=== PATIENT | female | born 1945 | race Caucasian/White ===

== ENCOUNTER 2016-07-10 14:41 | Emergency (ER) | payer OTHER ==
[2016-07-10 14:58] VITALS: BMI 26.6
--- NOTE | 2016-07-10 15:13 | PDOC ---
History of Present Illness - History of Present Illness Initial Comments: 07/10/16 18:05 Patient is a 70 year old female with significant medical hx of questionable lupus, major depressive disorder, HLD, thyroid disease, bilateral carpal tunnel syndrome, and recent diagnosis of pancreatitis (04/2016, [facility]) who is presenting to the ED with persistent abdominal pain. The patient states shes been in and out of [facility] for the past few months for abdominal pain. Recently, she has had increasing pain to the LLQ and generalized weakness. The patient had one episode of brown diarrhea this morning that was not black or bloody. The patient also reports nausea and vomiting two days ago but no vomiting since then. The patient is unsure if this is related to her pancreatitis. Denies any fevers, chills, chest pain, or shortness of breath, dysuria, melena/ bpr. Surgical Hx: cholecystectomy <Lavonne Mcguire - Last Filed: 07/10/16 18:05> <Kimberli Crawford - Last Filed: 07/10/16 23:06> <Raymundo Rodarte - Last Filed: 07/14/16 02:55> - General Chief Complaint: Weakness Stated Complaint: WEAKNESS Time Seen by Provider: 07/10/16 15:01 Past History <Lavonne Mcguire - Last Filed: 07/10/16 18:05> <Kimberli Crawford - Last Filed: 07/10/16 23:06> - Past Medical History Hypercholesterolemia: Yes (ELEVATED TRIGLYCERIDES) Thyroid Disease: Yes (HYPO) - Surgical History Abdominal Surgery: Yes Cholecystectomy: Yes - Immunization History Td Vaccination: Yes Immunization Up to Date: Yes - Psycho/Social/Smoking Cessation Hx Anxiety: Yes Suicidal Ideation: No Smoking Status: No Smoking History: Never smoked Years of Tobacco Use: 0 Have you smoked in the past 12 months: No Number of Cigarettes Smoked Daily: 0 Cigars Per Day: 0 Information on smoking cessation initiated: No Hx Alcohol Use: No Drug/Substance Use Hx: No <Raymundo Rodarte - Last Filed: 07/14/16 02:55> - Past Medical History Allergies/Adverse Reactions: Allergies Allergy/AdvReac Type Severity Reaction Status Date / Time cat dander Allergy Verified 07/10/16 14:56 lactose Allergy Verified 07/10/16 14:56 No Known Drug Allergies Allergy Verified 07/10/16 14:56 Home Medications: Ambulatory Orders Calcium Carbonate/Vitamin D3 [Oyster Shell 500-Vit D3 200 Tb] 1 each PO TID Clonazepam [KlonoPIN] 0.5 mg PO TID 07/10/16 Cyclosporine [Restasis] 1 each OP BID 07/10/16 Duloxetine HCl [Cymbalta -] 60 mg PO DAILY 07/10/16 Ferrous Gluconate [Ferate] 65 mg PO DAILY 07/10/16 Fluticasone Prop 0.05% Nasal [Flonase -] 1 spray NS BID 07/10/16 Gemfibrozil [Lopid -] 600 mg PO BID 07/10/16 Hydrocodone/Acetaminophen [[place] 10-325 Tablet] 1 each PO Q4H PRN 07/10/16 Hydroxychloroquine So4 [Plaquenil -] 200 mg PO BID 07/10/16 Lactase [Dairy Relief] 3,000 unit PO TID 07/10/16 Levothyroxine [Synthroid -] 88 mcg PO DAILY 07/10/16 Linagliptin [Tradjenta] 5 mg PO DAILY 07/10/16 Magnesium Oxide [Mag-Ox -] 400 mg PO BID 07/10/16 Metformin HCl [Metformin HCl ER] 1,000 mg PO BID 07/10/16 Metoprolol Tartrate [Lopressor -] 25 mg PO BID 07/10/16 Multivitamin [Poly-Vitamin] 1 each PO DAILY 07/10/16 Non-Formulary 20 mg PO TID 07/10/16 Prednisone [Deltasone -] 5 mg PO DAILY 07/10/16 Ranitidine [Zantac -] 150 mg PO BID 07/10/16 Saliva Substitute Combo No.9 [Biotene] 1 applic PO DAILY 07/10/16 Sertraline HCl [Zoloft] 75 mg PO DAILY 07/10/16 Sodium Fluoride [Prevident (Nf)] 60 gm DT BID 07/10/16 Tobramycin/Dexamethasone [Tobradex Eye Drops] 1 drop OU TID 07/10/16 Zolpidem Tartrate [Ambien] 10 mg PO HS 07/10/16 Review of Systems - Review of Systems Comments:: 07/10/16 18:05 CONSTITUTIONAL: Reported: Generalized Weakness No reported: Fever, Chills, Diaphoresis, Malaise, Loss of Appetite HEENT: No reported: Rhinorrhea, Nasal Congestion, Throat Pain, Throat Swelling, Difficulty Swallowing, Mouth Swelling, Ear Pain, Eye Pain, Visual Changes CARDIOVASCULAR: No reported: Chest Pain, Syncope, Palpitations, Irregular Heart Rate, Lightheadedness, Peripheral Edema RESPIRATORY: No reported: Cough, Shortness of Breath, SOB with Exertion, Orthopnea, Wheezing , Stridor, Hemoptysis GASTROINTESTINAL: Reported: Abdominal pain, Nausea, Vomiting, Diarrhea No reported: Abdominal Distension, Constipation, Melena, Hematochezia GENITOURINARY: No reported: Dysuria, Frequency, Urgency, Hesitancy, Flank Pain, Genital Pain MUSCULOSKELETAL: No reported: Myalgia, Arthralgia, Joint Swelling, Back pain, Neck Pain SKIN: No reported: Rash, Itching, Pallor HEMEATOLOGIC/IMMUNOLOGIC: No reported: Easy Bleeding, Easy Bruising, Lymphadenopathy, Frequent infections ENDOCRINE: No reported: Unexplained Weight Gain, Unexplained Weight Loss, Heat Intolerance , Cold Intolerance NEUROLOGIC: No reported: Headache, Focal Weakness, Paresthesias, Vertigo, Lightheadedness, Unsteady Gait, Seizure, Mental Status Changes, Incontinence PSYCHIATRIC: No reported: Anxiety, Depression <Maynor,Lavonne - Last Filed: 07/10/16 18:05> *Physical Exam - Vital Signs Last Vital Signs Temp Pulse Resp BP Pulse Ox 97.9 F 94 H 19 125/78 100 07/10/16 14:56 07/10/16 14:56 07/10/16 14:56 07/10/16 14:56 07/10/16 14:56 - Physical Exam Comments: 07/10/16 18:06 GENERAL: The patient is awake, alert, and fully oriented, Nontoxic - in no acute distress. HEAD: Normocephalic, atraumatic. EYES: extraocular movements intact, sclera anicteric, conjunctiva clear. ENT: Normal voice, Moist mucous membranes. NECK: Normal range of motion, supple LUNGS: Breath sounds equal, clear to auscultation bilaterally. No wheezes, no rhonchi, no rales. HEART: Regular rate and rhythm, normal S1 and S2 without murmur, rub or gallop. ABDOMEN: Soft, mild LLQ tenderness, normoactive bowel sounds. No guarding, no rebound. No CVA tenderness EXTREMITIES: Normal range of motion, no edema. No clubbing or cyanosis. No cords, erythema, or tenderness. NEUROLOGICAL: No facial assymetry, Normal speech, PSYCH: Normal mood, normal affect. SKIN: Warm, Dry, normal turgor. <Maynor,Lavonne - Last Filed: 07/10/16 18:05> - Vital Signs Last Vital Signs Temp Pulse Resp BP Pulse Ox 99.0 F 88 20 126/71 96 07/10/16 20:17 07/10/16 20:17 07/10/16 20:17 07/10/16 20:17 07/10/16 20:17 <Kimberli Crawford - Last Filed: 07/10/16 23:06> - Vital Signs Last Vital Signs Temp Pulse Resp BP Pulse Ox 97.9 F 94 H 19 125/78 100 07/10/16 14:56 07/10/16 14:56 07/10/16 14:56 07/10/16 14:56 07/10/16 14:56 <Raymundo Rodarte - Last Filed: 07/14/16 02:55> Heart Score/ECG Review - ECG Impressions Comment:: 07/10/16 16:24 Twelve-lead EKG was performed and reviewed by me. There is normal sinus rhythm with a normal rate. rate of 75 The axis is normal. The intervals are normal. There is normal R wave progression There are no ST or T wave abnormalities. Impression: Normal twelve-lead EKG <Raymundo Rodarte - Last Filed: 07/14/16 02:55> ED Treatment Course - LABORATORY CBC & Chemistry Diagram: 07/10/16 15:15 07/10/16 15:15 - ADDITIONAL ORDERS Additional order review: Laboratory Results 07/10/16 15:15 Sodium 134 L Potassium 3.9 Chloride 99 Carbon Dioxide 23 Anion Gap 12 BUN 13 Creatinine 0.6 Creat Clearance w eGFR > 60 Random Glucose 159 H Calcium 9.1 Magnesium 1.6 L Total Bilirubin 0.3 AST 10 L ALT 8 L Alkaline Phosphatase 106 Creatine Kinase 19 L Troponin I < 0.02 Total Protein 6.3 L Albumin 2.5 L Lipase 261 07/10/16 15:15 RBC 3.28 L MCV 89.0 MCHC 33.1 RDW 13.9 MPV 7.8 Neutrophils % 89.0 H Lymphocytes % 4.0 L Monocytes % 6.4 Eosinophils % 0.2 Basophils % 0.4 - Medications Given in the ED: ED Medications Discontinued Medications Generic Name Dose Route Start Last Admin Trade Name Freq PRN Reason Stop Dose Admin Sodium Chloride 1,000 mls @ 1,000 mls/hr 07/10/16 16:00 07/10/16 16:06 Normal Saline - IV 07/10/16 16:59 1,000 mls/hr .Q1H ONE Administration Morphine Sulfate 2 mg 07/10/16 16:00 07/10/16 16:06 Morphine Injection - IVPUSH 07/10/16 16:01 2 mg ONCE ONE Administration Morphine Sulfate 4 mg 07/10/16 17:35 07/10/16 17:39 Morphine Injection - IVPUSH 07/10/16 17:36 4 mg ONCE ONE Administration <Lavonne Mcguire - Last Filed: 07/10/16 18:05> - LABORATORY CBC & Chemistry Diagram: 07/10/16 15:15 07/10/16 15:15 - ADDITIONAL ORDERS Additional order review: Laboratory Results 07/10/16 07/10/16 07/10/16 15:22 15:15 15:15 Sodium 134 L Potassium 3.9 Chloride 99 Carbon Dioxide 23 Anion Gap 12 BUN 13 Creatinine 0.6 Creat Clearance w eGFR > 60 Random Glucose 159 H Calcium 9.1 Magnesium 1.6 L Total Bilirubin 0.3 AST 10 L ALT 8 L Alkaline Phosphatase 106 Creatine Kinase 19 L Troponin I < 0.02 Total Protein 6.3 L Albumin 2.5 L Lipase 261 TSH 1.04 Urine Color Straw Urine Appearance Clear Urine pH 7.0 Ur Specific [place] 1.006 Urine Protein Negative Urine Glucose (UA) Negative Urine Ketones Negative Urine Blood Negative Urine Nitrite Negative Urine Bilirubin Negative Urine Urobilinogen Negative Ur Leukocyte Esterase Trace H 07/10/16 15:15 RBC 3.28 L MCV 89.0 MCHC 33.1 RDW 13.9 MPV 7.8 Neutrophils % 89.0 H Lymphocytes % 4.0 L Monocytes % 6.4 Eosinophils % 0.2 Basophils % 0.4 - Medications Given in the ED: ED Medications Discontinued Medications Generic Name Dose Route Start Last Admin Trade Name Freq PRN Reason Stop Dose Admin Acetaminophen 1,000 mg 07/10/16 19:43 07/10/16 20:16 Ofirmev Injection - IVPB 07/10/16 19:44 1,000 mg ONCE ONE Administration Sodium Chloride 1,000 mls @ 1,000 mls/hr 07/10/16 16:00 07/10/16 16:06 Normal Saline - IV 07/10/16 16:59 1,000 mls/hr .Q1H ONE Administration Morphine Sulfate 2 mg 07/10/16 16:00 07/10/16 16:06 Morphine Injection - IVPUSH 07/10/16 16:01 2 mg ONCE ONE Administration Morphine Sulfate 4 mg 07/10/16 17:35 07/10/16 17:39 Morphine Injection - IVPUSH 07/10/16 17:36 4 mg ONCE ONE Administration <Kimberli Crawford - Last Filed: 07/10/16 23:06> - LABORATORY CBC & Chemistry Diagram: 07/10/16 15:15 07/10/16 15:15 <Raymundo Rodarte - Last Filed: 07/14/16 02:55> Medical Decision Making - Medical Decision Making 07/10/16 22:28 I spoke to hospitalist, who is willing to accept the patient so long as surgery service agrees to the admission. Our surgeon, Dr. Ochoa, is unwilling to accept the patient as she may require reection of pancreas, secondary to possible nectrotizing pancreatitis, as per air bubbles and possible abscess around the tail of the pancreas. I then spoke to Marii Craig, who is affiliated with [facility] He states that he has been admitting the patient to the hospitalists at [facility], but that [facility] has been unable to teat patient effectively over the past couple of times she had been admitted there. SHe had been admitted over a month. SHe has severe pancreatitis with pseudocysts. Dr. Jerry is recommending tertiary care center for eval and treatment of patient. I spoke to Dr. Borden at [facility], who accepts the patient. <Kimberli Crawford - Last Filed: 07/10/16 23:06> - Medical Decision Making 07/10/16 16:01 70y F hx of psych issues, pancreatitis approximately 2 months ago at [facility], ? lupus, presents with generalized weakness and LLQ pain for a few days with 1 episode of brown diarrhea this am w/o blood/melena. on exam pt had mild Llq tenderness, otherwise unreamrakble exam differential includes ?diverticulitis, uti will obtain blood work, ua ct abdomen will reassess A portion of this note was documented by scribe services under my direction. I have reviewed the details of the note, within reason, and agree with the documentation with the following case summary and management plan written by me 07/10/16 19:01 case signed out to dr. crawford to fu with CT and reeval/disposition the patient <Raymundo Rodarte - Last Filed: 07/14/16 02:55> *DC/Admit/Observation/Transfer - Attestations Scribe Attestion: 07/10/16 18:06 Documentation prepared by Lavonne Mcguire, acting as rn medical surgical for Raymundo Rodarte MD. <Lavonne Mcguire - Last Filed: 07/10/16 18:05> - Discharge Dispostion Admit: No - Transfer to Acute Care Facility Receiving Facility: [facility]. <Kimberli Crawford - Last Filed: 07/10/16 23:06> <Raymundo Rodarte - Last Filed: 07/14/16 02:55> Diagnosis at time of Disposition: Pancreatitis, Pneumobilia - Discharge Dispostion Disposition: TRANSFER ACUTE CARE/OTHER HOSP Condition at time of disposition: Guarded - Referrals Referrals: Allyson Jerry MD [Primary Care Provider] -
[2016-07-10 15:38] LABS: BASOPHIL 0.4 % (0-2.0); EOSINOPHIL 0.2 % (0-4.5); MCH 29.5 pg (25.7-33.7); MCHC 33.1 g/dl (32.0-36.0); MEAN PLT VOLUME 7.8 fl (7.5-11.1); PLATELET COUNT 292 K/MM3 (134-434); RDW 13.9 % (11.6-15.6); WHITE BLOOD COUNT 10.3 K/mm3 (4.0-10.0)
[2016-07-10] MEDS ORDERED: morphine CARPU-JECT 2 MG/1 ML DISP.SYRIN IVPUSH ONE (16:00)
[2016-07-10] MEDS ORDERED: SODIUM CHLORIDE 1,000 ML IV ONE (16:00)
[2016-07-10] MEDS ORDERED: morphine CARPU-JECT 2 MG/1 ML DISP.SYRIN ONE (16:05)
[2016-07-10 16:08] LABS: ALBUMIN 2.5 g/dl (3.4-5.0); ANION GAP 12 (8-16); BILIRUBIN,TOTAL 0.3 mg/dL (0.2-1.0); CALCIUM 9.1 mg/dL (8.5-10.1); CO2 23 mmol/L (21-32); COCKROFT - GAULT 101.3795; CREATININE 0.6 mg/dL (0.55-1.02); GLUCOSE,RANDOM 159 mg/dL (74-106); MAGNESIUM 1.6 mg/dL (1.8-2.4); SGOT/AST 10 U/L (15-37); SGPT/ALT 8 U/L (12-78); TOT PROT 6.3 g/dl (6.4-8.2)
[2016-07-10 16:11] LABS: ALK PHOS 106 U/L (45-117); TROPONIN I < 0.02 ng/ml (0.00-0.05)
[2016-07-10] MEDS ORDERED: morphine CARPU-JECT 4 MG/1 ML DISP.SYRIN IVPUSH ONE (17:35)
[2016-07-10] MEDS ORDERED: morphine CARPU-JECT 4 MG/1 ML DISP.SYRIN ONE (17:36)
[2016-07-10 19:07] LABS: URINE APPEARANCE CLEAR; URINE BILIRUBIN NEGATIVE (NEGATIVE); URINE BLOOD NEGATIVE (NEGATIVE); URINE COLOR STRAW; URINE GLUCOSE (UA) NEGATIVE (NEGATIVE); URINE KETONE NEGATIVE (NEGATIVE); URINE NITRITE NEGATIVE (NEGATIVE); URINE PROTEIN NEGATIVE (NEGATIVE); URINE UROBILINOGEN NEGATIVE E.U./dl (0.2-1.0)
[2016-07-10 19:40] LABS: URINE LEUK ESTERASE TRACE (NEGATIVE)
[2016-07-10] MEDS ORDERED: ACETAMINOPHEN 1000 MG/100 ML VIAL (NON FORMULARY) IVPB ONE (19:43)
[2016-07-10] MEDS ORDERED: ACETAMINOPHEN INJECTION 100 ML IVPB ONE (20:09)
[2016-07-10 21:35] LABS: URINE WBC 5 /hpf (3-5)
[2016-07-10] MEDS ORDERED: cefOXitin SODIUM 2 GM VIAL (RESTRICTED TO ID) IVPB ONE (22:26)
--- NOTE | 2016-07-10 22:28 | HP ---
CHIEF COMPLAINT: PCP: HISTORY OF PRESENT ILLNESS: ER course was notable for: (1) (2) (3) Recent Travel: PAST MEDICAL HISTORY: PAST SURGICAL HISTORY: Social History: Smoking: Alcohol: Drugs: Family History: Allergies cat dander Allergy (Verified 07/10/16 14:56) lactose Allergy (Verified 07/10/16 14:56) No Known Drug Allergies Allergy (Verified 07/10/16 14:56) HOME MEDICATIONS: Home Medications Medication Instructions Recorded Calcium Carbonate/Vitamin D3 1 each PO TID 07/10/16 [Oyster Shell 500-Vit D3 200 Tb] Clonazepam [KlonoPIN] 0.5 mg PO TID 07/10/16 Cyclosporine [Restasis] 1 each OP BID 07/10/16 Duloxetine HCl [Cymbalta -] 60 mg PO DAILY 07/10/16 Ferrous Gluconate [Ferate] 65 mg PO DAILY 07/10/16 Fluticasone Prop 0.05% Nasal 1 spray NS BID 07/10/16 [Flonase -] Gemfibrozil [Lopid -] 600 mg PO BID 07/10/16 Hydrocodone/Acetaminophen [[place] 1 each PO Q4H PRN 07/10/16 10-325 Tablet] Hydroxychloroquine So4 [Plaquenil 200 mg PO BID 07/10/16 -] Lactase [Dairy Relief] 3,000 unit PO TID 07/10/16 Levothyroxine [Synthroid -] 88 mcg PO DAILY 07/10/16 Linagliptin [Tradjenta] 5 mg PO DAILY 07/10/16 Magnesium Oxide [Mag-Ox -] 400 mg PO BID 07/10/16 Metformin HCl [Metformin HCl ER] 1,000 mg PO BID 07/10/16 Metoprolol Tartrate [Lopressor -] 25 mg PO BID 07/10/16 Multivitamin [Poly-Vitamin] 1 each PO DAILY 07/10/16 Non-Formulary 20 mg PO TID 07/10/16 Prednisone [Deltasone -] 5 mg PO DAILY 07/10/16 Ranitidine [Zantac -] 150 mg PO BID 07/10/16 Saliva Substitute Combo No.9 1 applic PO DAILY 07/10/16 [Biotene] Sertraline HCl [Zoloft] 75 mg PO DAILY 07/10/16 Sodium Fluoride [Prevident (Nf)] 60 gm DT BID 07/10/16 Tobramycin/Dexamethasone [Tobradex 1 drop OU TID 07/10/16 Eye Drops] Zolpidem Tartrate [Ambien] 10 mg PO HS 07/10/16 REVIEW OF SYSTEMS CONSTITUTIONAL: Absent: fever, chills, diaphoresis, generalized weakness, malaise, loss of appetite, weight change HEENT: Absent: rhinorrhea, nasal congestion, throat pain, throat swelling, difficulty swallowing, mouth swelling, ear pain, eye pain, visual changes CARDIOVASCULAR: Absent: chest pain, syncope, palpitations, irregular heart rate, lightheadedness , peripheral edema RESPIRATORY: Absent: cough, shortness of breath, dyspnea with exertion, orthopnea, wheezing, stridor, hemoptysis GASTROINTESTINAL: Absent: abdominal pain, abdominal distension, nausea, vomiting, diarrhea, constipation, melena, hematochezia GENITOURINARY: Absent: dysuria, frequency, urgency, hesitancy, hematuria, flank pain, genital pain MUSCULOSKELETAL: Absent: myalgia, arthralgia, joint swelling, back pain, neck pain SKIN: Absent: rash, itching, pallor HEMATOLOGIC/IMMUNOLOGIC: Absent: easy bleeding, easy bruising, lymphadenopathy, frequent infections ENDOCRINE: Absent: unexplained weight gain, unexplained weight loss, heat intolerance, cold intolerance NEUROLOGIC: Absent: headache, focal weakness or paresthesias, dizziness, unsteady gait, seizure, mental status changes, bladder or bowel incontinence PSYCHIATRIC: Absent: anxiety, depression, suicidal or homicidal ideation, hallucinations. PHYSICAL EXAMINATION Vital Signs - 24 hr 07/10/16 07/10/16 07/10/16 14:56 18:30 20:17 Temperature 97.9 F 99.0 F Pulse Rate 94 H Pulse Rate [ 80 88 Apical] Respiratory 19 19 20 Rate Blood Pressure 125/78 Blood Pressure 141/65 126/71 [Right Arm] O2 Sat by Pulse 100 98 96 Oximetry (%) GENERAL: Awake, alert, and fully oriented, in no acute distress. HEAD: Normal with no signs of trauma. EYES: Pupils equal, round and reactive to light, extraocular movements intact, sclera anicteric, conjunctiva clear. No lid lag. EARS, NOSE, THROAT: Ears normal, nares patent, oropharynx clear without exudates. Moist mucous membranes. NECK: Normal range of motion, supple without lymphadenopathy, JVD, or masses. LUNGS: Breath sounds equal, clear to auscultation bilaterally. No wheezes, and no crackles. No accessory muscle use. HEART: Regular rate and rhythm, normal S1 and S2 without murmur, rub or gallop. ABDOMEN: Soft, nontender, not distended, normoactive bowel sounds, no guarding, no rebound, no masses. No hepatomegaly or splenomegaly. MUSCULOSKELETAL: Normal range of motion at all joints. No bony deformities or tenderness. No CVA tenderness. UPPER EXTREMITIES: 2+ pulses, warm, well-perfused. No cyanosis. No clubbing. No peripheral edema. LOWER EXTREMITIES: 2+ pulses, warm, well-perfused. No calf tenderness. No peripheral edema. NEUROLOGICAL: Cranial nerves II-XII intact. Normal speech. Normal gait. PSYCHIATRIC: Cooperative. Good eye contact. Appropriate mood and affect. SKIN: Warm, dry, normal turgor, no rashes or lesions noted, normal capillary refill. Laboratory Results - last 24 hr 07/10/16 07/10/16 07/10/16 15:15 15:15 15:15 WBC 10.3 H RBC 3.28 L Hgb 9.7 L Hct 29.2 L MCV 89.0 MCHC 33.1 RDW 13.9 Plt Count 292 MPV 7.8 Neutrophils % 89.0 H Lymphocytes % 4.0 L Monocytes % 6.4 Eosinophils % 0.2 Basophils % 0.4 Sodium 134 L Potassium 3.9 Chloride 99 Carbon Dioxide 23 Anion Gap 12 BUN 13 Creatinine 0.6 Creat Clearance w eGFR > 60 Random Glucose 159 H Calcium 9.1 Magnesium 1.6 L Total Bilirubin 0.3 AST 10 L ALT 8 L Alkaline Phosphatase 106 Creatine Kinase 19 L Troponin I < 0.02 Total Protein 6.3 L Albumin 2.5 L Lipase 261 TSH Urine Color Straw Urine Appearance Clear Urine pH 7.0 Ur Specific [place] 1.006 Urine Protein Negative Urine Glucose (UA) Negative Urine Ketones Negative Urine Blood Negative Urine Nitrite Negative Urine Bilirubin Negative Urine Urobilinogen Negative Ur Leukocyte Esterase Trace H 07/10/16 15:22 WBC RBC Hgb Hct MCV MCHC RDW Plt Count MPV Neutrophils % Lymphocytes % Monocytes % Eosinophils % Basophils % Sodium Potassium Chloride Carbon Dioxide Anion Gap BUN Creatinine Creat Clearance w eGFR Random Glucose Calcium Magnesium Total Bilirubin AST ALT Alkaline Phosphatase Creatine Kinase Troponin I Total Protein Albumin Lipase TSH 1.04 Urine Color Urine Appearance Urine pH Ur Specific [place] Urine Protein Urine Glucose (UA) Urine Ketones Urine Blood Urine Nitrite Urine Bilirubin Urine Urobilinogen Ur Leukocyte Esterase ASSESSMENT/PLAN:
[2016-07-10] MEDS ORDERED: CEFOXITIN SODIUM 2 GM in DEXTROSE 5%-WATER - 100 ML IVPB ONE (23:00)
[2016-07-10 23:07] VITALS: BP 141/59; PULSE 82; TEMP 98
--- NOTE | 2016-07-11 11:18 | EKG ---
Test Reason : Blood Pressure : / mmHG Vent. Rate : 075 BPM Atrial Rate : 075 BPM P-R Int : 148 ms QRS Dur : 090 ms QT Int : 404 ms P-R-T Axes : 007 011 052 degrees QTc Int : 451 ms NORMAL SINUS RHYTHM NORMAL ECG NO PREVIOUS ECGS AVAILABLE Confirmed by WALDEMAR MADRIGAL MD ([id number]) on 07/11/2016 11:18:14 AM Referred By: Confirmed By:WALDEMAR MADRIGAL MD
== END 2016-07-10 23:03 | disposition short-term general hospital (02) ==
LOC: JER 14:41 → UNDOADMIN 22:07 → JERBED 22:07 → JER 23:03
PROC: 3E033NZ Introduction of Analgesics, Hypnotics, Sedatives into Peripheral Vein, Percutaneous Approach (ICD-10-PCS; principal; 2016-07-10)
PROC: 3E03329 Introduction of Other Anti-infective into Peripheral Vein, Percutaneous Approach (ICD-10-PCS; 2016-07-10)
PROC: 3E0337Z Introduction of Electrolytic and Water Balance Substance into Peripheral Vein, Percutaneous Approach (ICD-10-PCS; 2016-07-10)
DX: K85.90 Acute pancreatitis without necrosis or infection, unspecified (principal); J17 Pneumonia in diseases classified elsewhere; E78.5 Hyperlipidemia, unspecified; E07.9 Disorder of thyroid, unspecified; F32.9 Major depressive disorder, single episode, unspecified
CPT/HCPCS: 36415; 74177-TC; 80053; 81003; 81015; 82550; 83690; 83735; 84443; 84484; 85025; 93005; 93010; 96361; 96365; 96375; 96376; 99285-25

== ENCOUNTER 2017-12-29 16:40 | Emergency (ER) | payer OTHER ==
[2017-12-29 16:52] VITALS: TEMP 98.6; BMI 25.9
--- NOTE | 2017-12-29 18:03 | PDOC ---
History of Present Illness - General Chief Complaint: Respiratory Stated Complaint: COUGHING UP BLOOD Time Seen by Provider: 12/29/17 17:12 History Source: Patient Exam Limitations: No Limitations - History of Present Illness Initial Comments: 12/29/17 17:53 Pt is a 72yo f with PMH of Lupus, Thyroid?, hld, pancreatitis, osteoporosis, carpal tunnel, hemarrhoids, BIBA to ED from [facility] with complaints of "I think I have bronchitis". Pt says she has been having subjective fevers, sore throat, cough productive of thick green sputum and headaches since yesterday. She states that when she wipes her nose, she sees some blood in her mucus. Pt says that she has also been having "yellow and oily" diarrhea. She has also noticed that others at the facility have also been having diarrhea. She admits to chills, weakness/lethargy. Denies urinary symptoms, back pain, neck pain, changes in vision, abdominal pain, nausea, vomiting. She states that when she wipes she notices blood on the tissue, but states that this is from the hemarrhoids and it has been "going on for a long time". Pt thinks she has a parasite that is causing all of her problems. PMH: see hpi PSH: cholecystectomy, pancreas stent Meds: metformin, plaquinil, steroids, cholesterol, thyroid, Lyrica Social: denies Allergies: ndka PCP: [facility] Past History - Past Medical History Allergies/Adverse Reactions: Allergies Allergy/AdvReac Type Severity Reaction Status Date / Time cat dander Allergy Verified 07/10/16 14:56 lactose Allergy Verified 07/10/16 14:56 No Known Drug Allergies Allergy Verified 07/10/16 14:56 Home Medications: Ambulatory Orders Calcium Carbonate/Vitamin D3 [Oyster Shell 500-Vit D3 200 Tb] 1 each PO TID Cyclosporine [Restasis] 1 each OP BID 07/10/16 Duloxetine HCl [Cymbalta -] 60 mg PO DAILY 07/10/16 Ferrous Gluconate [Ferate] 65 mg PO DAILY 07/10/16 Fluticasone Prop 0.05% Nasal [Flonase -] 1 spray NS BID 07/10/16 Gemfibrozil [Lopid -] 600 mg PO BID 07/10/16 Hydrocodone/Acetaminophen [[place] 10-325 Tablet] 1 each PO Q4H PRN 07/10/16 Hydroxychloroquine So4 [Plaquenil -] 200 mg PO BID 07/10/16 Lactase [Dairy Relief] 3,000 unit PO TID 07/10/16 Levothyroxine [Synthroid -] 88 mcg PO DAILY 07/10/16 Linagliptin [Tradjenta] 5 mg PO DAILY 07/10/16 Magnesium Oxide [Mag-Ox -] 400 mg PO BID 07/10/16 Metformin HCl [Metformin HCl ER] 1,000 mg PO BID 07/10/16 Metoprolol Tartrate [Lopressor -] 25 mg PO BID 07/10/16 Multivitamin [Poly-Vitamin] 1 each PO DAILY 07/10/16 Non-Formulary 20 mg PO TID 07/10/16 Ranitidine [Zantac -] 150 mg PO BID 07/10/16 Saliva Substitute Combo No.9 [Biotene] 1 applic PO DAILY 07/10/16 Sertraline HCl [Zoloft] 75 mg PO DAILY 07/10/16 Sodium Fluoride [Prevident (Nf)] 60 gm DT BID 07/10/16 Tobramycin/Dexamethasone [Tobradex Eye Drops] 1 drop OU TID 07/10/16 Zolpidem Tartrate [Ambien] 10 mg PO HS 07/10/16 clonazePAM [KlonoPIN] 0.5 mg PO TID 07/10/16 predniSONE [Deltasone -] 5 mg PO DAILY 07/10/16 Azithromycin [Zithromax 250mg Tablets -] 250 mg PO UTDICT #6 tab 12/29/17 Methylprednisolone [Medrol Dose Terence] 4 mg PO ASDIR #21 tablet 12/29/17 COPD: No CHF: No Hypercholesterolemia: Yes (ELEVATED TRIGLYCERIDES) Psychiatric Problems: Yes (major depression with psychotic features, anxiety, personality disorder) Thyroid Disease: Yes (HYPO) - Surgical History Abdominal Surgery: Yes Cholecystectomy: Yes - Immunization History Td Vaccination: Yes Immunization Up to Date: Yes - Suicide/Smoking/Psychosocial Hx Smoking Status: No Smoking History: Never smoked Years of Tobacco Use: 0 Have you smoked in the past 12 months: No Number of Cigarettes Smoked Daily: 0 Cigars Per Day: 0 Information on smoking cessation initiated: No Hx Alcohol Use: No Drug/Substance Use Hx: No Substance Use Type: None Review of Systems - Review of Systems Constitutional: Yes: Chills, Fever, Weakness HEENTM: Yes: Tearing, Nose Congestion, Nose Bleeding, Throat Pain. No: Eye Pain Respiratory: Yes: See HPI, Shortness of Breath, Productive cough. No: Hemoptysis Cardiac (ROS): No: Chest Pain, Lightheadedness, Palpitations, Syncope ABD/GI: Yes: See HPI, Diarrhea, Rectal Bleeding. No: Constipated, Nausea, Vomiting, Abdominal cramping : No: Burning, Dysuria, Hematuria Musculoskeletal: No: Back Pain, Joint Pain, Muscle Weakness, Neck Pain Integumentary: Yes: Other (parasite spots). No: Dryness, Pruritus Neurological: Yes: Headache. No: Numbness, Paresthesia, Tingling, Weakness Hematologic/Lymphatic: No: Blood Clots, Easy Bleeding *Physical Exam - Vital Signs Last Vital Signs Temp Pulse Resp BP Pulse Ox 98.6 F 75 16 130/71 98 12/29/17 16:46 12/29/17 16:46 12/29/17 16:46 12/29/17 16:46 12/29/17 16:46 - Physical Exam General Appearance: Yes: Nourished, Appropriately Dressed. No: Apparent Distress HEENT: positive: EOMI, [place], Pharynx Normal, Nasal Congestion, Other ( conjunctival erythema). negative: Pale Conjunctivae, Scleral Icterus (R), Scleral Icterus (L), Sinus Tenderness Neck: positive: Trachea midline, Supple. negative: Lymphadenopathy (R), Lymphadenopathy (L) Cardiovascular: positive: Regular Rhythm, Regular Rate, S1, S2. negative: Edema , JVD, Murmur Vascular Pulses: Carotid (R): 2+, Carotid (L): 2+, Dorsalis-Pedis (R): 2+, Doralis-Pedis (L): 2+ Gastrointestinal/Abdominal: positive: Normal Bowel Sounds, Soft, Tenderness ( LUQ and LLQ). negative: Protuberent, Distended, Guarding, Rebound, Hernia, Mass Musculoskeletal: negative: CVA Tenderness Extremity: positive: Normal Capillary Refill, Other (varicose veins). negative : Coldness, Cyanosis, Swelling, Calf Tenderness, Erythema Integumentary: positive: Normal Color, Dry, Warm. negative: Pale, Swelling, Ecchymosis Neurologic: positive: head resident II-XII NML intact, Fully Oriented, Alert, Normal Response, Motor Strength 07/17 ED Treatment Course - LABORATORY CBC & Chemistry Diagram: 12/29/17 18:00 12/29/17 18:00 - RADIOLOGY Radiology Studies Ordered: Category Date Time Status CHEST X-RAY PORTABLE* [RAD] Stat Radiology 12/29/17 17:45 Ordered Medical Decision Making - Medical Decision Making 12/29/17 18:08 Pt is a 72yo f with PMH of Lupus, Thyroid?, hld, pancreatitis, osteoporosis, carpal tunnel, hemarrhoids, BIBA to ED from Assisted Living with complaints of subjective fevers, sore throat, cough productive of thick green sputum and headaches since yesterday. Vitals: wnl PE: Bilateral wheezing, tender to palpation in LUQ and LLQ Pt unable to provide stool sample. Labs orderd, ekg, cxr. ua. CXR negative for acute process. Labs wnl. EKG: nsr, no spring or depresions, or arrhythmia. Most likely has bronchitis. Pt hemodynamcilly stable, vitals wnl. Will dc with zpack and medrol dose pack . *DC/Admit/Observation/Transfer Diagnosis at time of Disposition: Bronchitis, Cough - Discharge Dispostion Disposition: HALFWAY FACILITY Condition at time of disposition: Good - Prescriptions Prescriptions: Azithromycin [Zithromax 250mg Tablets -] 250 mg PO UTDICT #6 tab Methylprednisolone [Medrol Dose Terence] 4 mg PO ASDIR #21 tablet - Referrals - Patient Instructions Printed Discharge Instructions: DI for Acute Bronchitis Additional Instructions: You were seen here today for evaluation of cough, shortness of breath and fevers. Your tests were normal. You most likely have bronchitis. You have two prescriptions. Take as directed. The paper is with you. Please come back to the emergency room if: your cough does not go away, you develop fever, or if any new concerning symptom develops. Thank you - Post Discharge Activity
[2017-12-29 18:13] LABS: EOS % 1.1 % (0-4.5); HEMATOCRIT 36.5 % (32.4-45.2); LYMPH % 15.1 % (8-40); MCH 30.6 pg (25.7-33.7); MCHC 32.9 g/dl (32.0-36.0); MEAN CELL VOLUME 92.9 fl (80-96); MEAN PLT VOLUME 8.3 fl (7.5-11.1); MONO % 10.4 % (3.8-10.2); NEUT % 72.4 % (42.8-82.8); PLATELET COUNT 258 K/MM3 (134-434); RBC 3.93 M/mm3 (3.60-5.2); RDW 13.1 % (11.6-15.6); WHITE BLOOD COUNT 6.8 K/mm3 (4.0-10.0)
[2017-12-29] MEDS ORDERED: ALBUTEROL SO4 2.5/IPRATROPIUM 0.5 INH SOL 3 ML VIAL.NEB. NEB ONE ×2 (18:27→18:30)
[2017-12-29 18:53] LABS: ALK PHOS 66 U/L (45-117); ANION GAP 8 MMOL/L (8-16); BILIRUBIN,TOTAL 0.4 mg/dL (0.2-1); BLOOD UREA NITROGEN 23 mg/dL (7-18); CALCIUM 9.1 mg/dL (8.5-10.1); CHLORIDE 105 mmol/L (98-107); CO2 25 mmol/L (21-32); GLUCOSE,RANDOM 128 mg/dL (74-106); POTASSIUM 4.9 mmol/L (3.5-5.1); SGOT/AST 26 U/L (15-37); SGPT/ALT 21 U/L (13-61); SODIUM 138 mmol/L (136-145); TOT PROT 7.5 g/dl (6.4-8.2)
--- NOTE | 2017-12-29 20:09 | PDOC ---
Attending Attestation - Resident Resident Name: Jessie Adrian - ED Attending Attestation I have performed the following: I have examined & evaluated the patient, The case was reviewed & discussed with the resident, I agree w/resident's findings & plan, Exceptions are as noted - HPI HPI: 12/29/17 22:14 Ms Stafford is a 72 yo F h/o Lupus, Thyroid d/o, HLD, pancreatitis, osteoporosis , carpal tunnel, hemorrhoids She presents from [facility] with concern for bronchitis (+) subjective fevers, sore throat, productive cough (+) green sputum, rhinorrhea Pt states that the mucous has small objects in it which she is concerned are parasites This was observed by resident and myself, I do not see parasites She also notes diarrhea which she states also has parasites in it (she is brought tissues which she has used to clean herself which she stores in the refrigerator, she has a stool sample from earlier today) Unclear which pmd has been seeing her PMH: see hpi PSH: cholecystectomy, pancreas stent Meds: metformin, plaquinil, steroids, cholesterol, thyroid, Lyrica - Physicial Exam PE: 12/29/17 22:21 Pt is awake and alert She answers questions appropriately Cardiovascular: Regular Rhythm, Regular Rate, S1, S2. negative: Edema, JVD, Murmur Gastrointestinal/Abdominal: Normal Bowel Sounds, Soft, Tenderness (LUQ and LLQ) . Musculoskeletal: negative: CVA Tenderness Extremity: No: Coldness, Cyanosis, Swelling, Calf Tenderness, Erythema Integumentary: positive: Normal Color, Dry, Warm. negative: Pale, Swelling, Ecchymosis Neurologic: positive: gas line installer II-XII NML intact, Fully Oriented, Alert, Normal Response, Motor Strength 07/17 - Medical Decision Making 12/29/17 22:28 Laboratory Tests 12/29/17 12/29/17 18:00 18:00 WBC 6.8 Hgb 12.0 Hct 36.5 D Plt Count 258 BUN 23 H Creatinine 1.0 AST [address]: minimal pneumobilia, no colitis, no diverticulitis, no inflammation Will treat bronchitis Facility can not tell us the location of this patient's pharmacy Will print prescription Clinical Impression: bronchitis, initial presentation EKG: Twelve-lead EKG was performed and reviewed by me. There is normal sinus rhythm with a normal rate. The axis is normal (? p wave axis as p waves inverted III, aVF). The intervals are normal. There are no ST or T wave abnormalities. Impression: Normal twelve-lead EKG
[2017-12-29 21:34] LABS: INR 1.01 (0.83-1.09); PROTHROMBIN TIME (PATIENT) 11.9 SEC (9.7-13.0)
[2017-12-29 23:24] VITALS: BP 132/76; PULSE 80
--- NOTE | 2017-12-30 09:22 | EKG ---
Test Reason : Blood Pressure : / mmHG Vent. Rate : 072 BPM Atrial Rate : 072 BPM P-R Int : 136 ms QRS Dur : 080 ms QT Int : 426 ms P-R-T Axes : 000 003 078 degrees QTc Int : 466 ms POOR DATA QUALITY, INTERPRETATION MAY BE ADVERSELY AFFECTED NORMAL SINUS RHYTHM NORMAL ECG WHEN COMPARED WITH ECG OF 10-JUL-2016 15:21, NO SIGNIFICANT CHANGE WAS FOUND Confirmed by KAITLIN STEEN, WALDEMAR ([id number]) on 12/30/2017 9:22:00 AM Referred By: Confirmed By:WALDEMAR MADRIGAL MD
== END 2017-12-30 00:29 ==
LOC: JER 16:40
PROC: 3E0F7GC Introduction of Other Therapeutic Substance into Respiratory Tract, Via Natural or Artificial Opening (ICD-10-PCS; principal; 2017-12-29)
DX: J20.9 Acute bronchitis, unspecified (principal); E03.9 Hypothyroidism, unspecified; E78.2 Mixed hyperlipidemia; Z87.39 Personal history of other diseases of the musculoskeletal system and connective tissue; F41.9 Anxiety disorder, unspecified; F60.9 Personality disorder, unspecified; F33.3 Major depressive disorder, recurrent, severe with psychotic symptoms
CPT/HCPCS: 36415; 71045-TC-FY; 74176-TC; 80053; 84484; 85025; 85610; 93005; 93010; 99283-25; J7620

== ENCOUNTER 2018-03-25 16:06 | Inpatient (IN) | payer OTHER ==
--- NOTE | 2018-03-25 16:29 | PDOC ---
Rapid Medical Evaluation Chief Complaint: Urinary Problem Time Seen by Provider: 03/25/18 16:24 Medical Evaluation: Allergies Allergy/AdvReac Type Severity Reaction Status Date / Time cat dander Allergy Verified 03/25/18 16:16 lactose Allergy Verified 03/25/18 16:16 No Known Drug Allergies Allergy Verified 03/25/18 16:16 03/25/18 16:24 Pt c/o: stating is having diarrhea frequently since yesterday, no fever, + weakness Pt on brief exam: tachy at 105, no abd pain Pt ordered for: labs, ua Discharge Disposition - Diagnosis Diarrhea - Referrals - Patient Instructions - Post Discharge Activity
[2018-03-25 16:31] VITALS: BMI 25.4
[2018-03-25 17:06] LABS: BASO % 0.5 % (0-2.0); EOS % 1.9 % (0-4.5); HEMATOCRIT 33.3 % (32.4-45.2); HEMOGLOBIN 11.8 GM/dL (10.7-15.3); MCH 32.3 pg (25.7-33.7); MCHC 35.5 g/dl (32.0-36.0); MEAN PLT VOLUME 7.8 fl (7.5-11.1); MONO % 9.2 % (3.8-10.2); NEUT % 69.4 % (42.8-82.8); PLATELET COUNT 276 K/MM3 (134-434); RBC 3.66 M/mm3 (3.60-5.2); WHITE BLOOD COUNT 7.4 K/mm3 (4.0-10.0)
[2018-03-25 17:34] LABS: ALBUMIN 3.5 g/dl (3.4-5.0); ALK PHOS 52 U/L (45-117); ANION GAP 7 MMOL/L (8-16); BILIRUBIN,TOTAL 0.3 mg/dL (0.2-1); BLOOD UREA NITROGEN 17 mg/dL (7-18); CALCIUM 8.6 mg/dL (8.5-10.1); CHLORIDE 114 mmol/L (98-107); CO2 23 mmol/L (21-32); CREATININE 0.6 mg/dL (0.55-1.3); GLUCOSE,RANDOM 162 mg/dL (74-106); LIPASE 232 U/L (73-393); POTASSIUM 3.6 mmol/L (3.5-5.1); SGOT/AST 12 U/L (15-37); SGPT/ALT 15 U/L (13-61); SODIUM 143 mmol/L (136-145); TOT PROT 6.6 g/dl (6.4-8.2)
[2018-03-25] MEDS ORDERED: SODIUM CHLORIDE 0.9% 500 ML INFUS.BAG IV ONE (18:08)
[2018-03-25] MEDS ORDERED: ACETAMINOPHEN 1000 MG/100 ML VIAL (NON FORMULARY) IVPB ONE (18:08)
--- NOTE | 2018-03-25 18:08 | PDOC ---
History of Present Illness - General Chief Complaint: Diarrhea Stated Complaint: INCONTINENCE Time Seen by Provider: 03/25/18 16:24 History Source: Patient Exam Limitations: No Limitations - History of Present Illness Initial Comments: 72 yo F w a pmh of Lupus, diverticulosis, Thyroid disorder, hld, pancreatitis, osteoporosis, carpal tunnel, hemorrhoids, BIBA to ED from [facility]isted Living with complaints of LLQ abdominal pain, loose green smelly stools, and chills. She had an appointment at [facility] this morning at the [address] [place] [address] office with a sales floor team member doctor - Dr. Jared Calderon but could not make the appointment because she continuously had non-stop loose green smelly stools. She is wearing a diaper and says the diaper gets filled every 30 minutes and she says she cannot hold anything in. The pain in her LLQ is 4/10 in intensity. She denies fevers but endorses the chills for the past few days. She denies any chest pain, SOB, difficulty breathing, urinary symptoms, back pain, neck pain, changes in vision, nausea, vomiting, recent fevers, headache, blurry vision, neck pain. PCP: Dr. Rene Groundhand: Dr. Jared Calderon PSH: Cholecystectomy, pancreatic stent Allergies: Cat dander, lactose, NKDA Social Hx: Denies smoking, drinking, other substance usage. Past History - Past Medical History Allergies/Adverse Reactions: Allergies Allergy/AdvReac Type Severity Reaction Status Date / Time cat dander Allergy Verified 03/25/18 16:16 lactose Allergy Verified 03/25/18 16:16 No Known Drug Allergies Allergy Verified 03/25/18 16:16 Home Medications: Ambulatory Orders Calcium Carbonate/Vitamin D3 [Oyster Shell 500-Vit D3 200 Tb] 1 each PO TID Ferrous Gluconate [Ferate] 324 mg PO DAILY 07/10/16 Gemfibrozil [Lopid -] 600 mg PO BID 07/10/16 Hydrocodone/Acetaminophen [[place] 10-325 Tablet] 1 each PO BID 07/10/16 Hydroxychloroquine So4 [Plaquenil -] 200 mg PO BID 07/10/16 Lactase [Dairy Relief] 3,000 unit PO TID 07/10/16 Linagliptin [Tradjenta] 5 mg PO DAILY 07/10/16 Magnesium Oxide [Mag-Ox -] 400 mg PO BID 07/10/16 Metoprolol Tartrate [Lopressor -] 37.5 mg PO BID 07/10/16 Multivitamin [Poly-Vitamin] 1 each PO DAILY 07/10/16 Sertraline HCl [Zoloft] 75 mg PO DAILY 07/10/16 Sodium Fluoride [Prevident (Nf)] 60 gm DT BID 07/10/16 Tobramycin/Dexamethasone [Tobradex Eye Drops] 1 drop OU TID 07/10/16 Zolpidem Tartrate [Ambien] 10 mg PO HS 07/10/16 clonazePAM [KlonoPIN] 0.5 mg PO TID 07/10/16 metFORMIN HCL [Metformin HCl ER] 1,000 mg PO BID 07/10/16 predniSONE [Deltasone -] 10 mg PO DAILY 07/10/16 Amlodipine Besylate [Norvasc -] 5 mg PO DAILY 03/25/18 Ascorbic Acid [Vitamin C -] 250 mg PO DAILY 03/25/18 Dextroamphetamine/Amphetamine [Adderall Xr 20 mg Capsule] 1 tab PO TID 03/25/18 Duloxetine HCl [Cymbalta -] 60 mg PO DAILY 03/25/18 Ergocalciferol (Vitamin D2) [Vitamin D2] 50,000 unit PO WEEKLY 03/25/18 Gabapentin [Neurontin -] 100 mg PO HS 03/25/18 Levothyroxine [Synthroid -] 88 mcg PO DAILY 03/25/18 Loratadine [Claritin -] 10 mg PO DAILY 03/25/18 Oxybutynin Chloride [Oxybutynin Chloride ER] 5 mg PO DAILY 03/25/18 Tobramycin/Dexamethasone [Tobradex Eye Drops] 5 ml OP ASDIR 03/25/18 COPD: No CHF: No Hypercholesterolemia: Yes (ELEVATED TRIGLYCERIDES) Psychiatric Problems: Yes (major depression with psychotic features, anxiety, personality disorder) Thyroid Disease: Yes (HYPO) - Surgical History Abdominal Surgery: Yes Cholecystectomy: Yes - Immunization History Td Vaccination: Yes Immunization Up to Date: Yes - Suicide/Smoking/Psychosocial Hx Smoking Status: No Smoking History: Smoker current status UNK Years of Tobacco Use: 0 Have you smoked in the past 12 months: No Number of Cigarettes Smoked Daily: 0 Cigars Per Day: 0 Hx Alcohol Use: No Drug/Substance Use Hx: No Substance Use Type: None Review of Systems - Review of Systems Able to Perform ROS?: Yes Comments:: CONSTITUTIONAL: Present: Chills Absent: fever, no fatigue EYES: Absent: visual changes ENT: Absent: ear pain, no sore throat CARDIOVASCULAR: Absent: chest pain, no palpitations RESPIRATORY: Absent: cough, no SOB GI: Present: Abdominal pain, nausea, diarrhea Absent: no vomiting, no constipation GENITOURINARY: Absent: dysuria, no frequency, no hematuria MUSKULOSKELETAL: Present: Back pain Absent: no arthralgia, no myalgia SKIN: Absent: rash NEURO: Absent: headache *Physical Exam - Vital Signs Last Vital Signs Temp Pulse Resp BP Pulse Ox 97.9 F 107 H 18 150/88 98 03/25/18 16:29 03/25/18 16:29 03/25/18 16:29 03/25/18 16:29 03/25/18 16:29 - Physical Exam Comments: GENERAL: Well-appearing, well-nourished. No apparent distress. HEENT: Normocephalic, atraumatic. PERRL, EOM intact. CARDIOVASCULAR: Normal S1, S2. Regular rate and rhythm. PULMONARY: Clear to auscultation bilaterally. ABDOMEN: There is TTP in the LLQ. Normal BS. Abdomen is soft and non-distended. EXTREMITIES: Limited ROM in all four extremities. No gross deformities. SKIN: Warm, dry. No rash NEUROLOGICAL: No focal neurological deficits. Moderate Sedation - Procedure Monitoring Vital Signs: Procedure Monitoring Vital Signs Temperature 97.9 F 03/25/18 16:29 Pulse Rate 107 H 03/25/18 16:29 Respiratory Rate 18 03/25/18 16:29 Blood Pressure 150/88 03/25/18 16:29 O2 Sat by Pulse Oximetry (%) 98 03/25/18 16:29 ED Treatment Course - LABORATORY CBC & Chemistry Diagram: 03/25/18 16:39 03/25/18 16:39 - ADDITIONAL ORDERS Additional order review: Laboratory Results 03/25/18 03/25/18 16:39 16:39 Sodium 143 Potassium 3.6 Chloride 114 H Carbon Dioxide 23 Anion Gap 7 L BUN 17 Creatinine 0.6 Creat Clearance w eGFR > 60 Random Glucose 162 H Lactic Acid 0.7 Calcium 8.6 Magnesium 2.0 Total Bilirubin 0.3 AST 12 L ALT 15 Alkaline Phosphatase 52 Total Protein 6.6 Albumin 3.5 Lipase 232 03/25/18 16:39 RBC 3.66 MCV 91.0 MCHC 35.5 RDW 13.0 MPV 7.8 Neutrophils % 69.4 Lymphocytes % 19.0 D Monocytes % 9.2 Eosinophils % 1.9 Basophils % 0.5 Medical Decision Making - Medical Decision Making 72 yo F w a pmh of Lupus, diverticulosis, Thyroid disorder, hld, pancreatitis, osteoporosis, carpal tunnel, hemorrhoids, BIBA to ED from [facility] with complaints of LLQ abdominal pain, loose green smelly stools, and chills. DDx IBNLT: pancreatitis, Ileus, SBO, gastroenteritis, diverticulitis, colitis, biliary fistula to intestine Plan: Labs, CTAP, analgesia, IV hydration, re-assess. CTAP shows both ileus and enteritis. - Will start Abx treatment with cipro and flagyl and admit for further care. *DC/Admit/Observation/Transfer Diagnosis at time of Disposition: Diarrhea, Ileus, Enteritis - Discharge Dispostion Decision to Admit order: Yes - Referrals - Patient Instructions - Post Discharge Activity
--- NOTE | 2018-03-25 20:52 | PDOC ---
Attending Attestation - Resident Resident Name: LeobardoPrakash - ED Attending Attestation I have performed the following: I have examined & evaluated the patient, The case was reviewed & discussed with the resident, I agree w/resident's findings & plan, Exceptions are as noted - HPI HPI: 03/25/18 20:46 The patient is a 72 year old female with a signifciant past medical history of Lupus, diverticulosis, Thyroid disorder, hld, pancreatitis, osteoporosis, carpal tunnel, hemorrhoids, BIBA to ED from [facility] Facility with complaints of left lower abdominal pain, loose green malodorous stools, and associated chills. She states her diaper gets filled every 30 minutes. The pain is reportedly localized to her left lower abdomen, 4/10 in intensity, without alleviating or eacerbating factors. She denies fevers but endorses the chills for the past few days. She denies any chest pain, SOB, difficulty breathing, palpitations, urinary symptoms, back pain, neck pain, changes in vision, nausea, vomiting, recent fevers, headache, blurry vision, neck pain. She states she did not make it to her GI appointment today secondary to her persistent stools. PCP: Dr. Rene Tobacco [place] Measurer: Dr. Jared Calderon PSH: Cholecystectomy, pancreatic stent Allergies: Cat dander, lactose, NKDA Social Hx: Denies smoking, drinking, other substance usage. - Physicial Exam PE: 03/25/18 20:47 GENERAL: Awake, alert, and fully oriented, in no acute distress. HEAD: No signs of trauma EYES: PERRLA, EOMI, sclera anicteric, conjunctiva clear ENT: Auricles normal inspection, hearing grossly normal, nares patent, oropharynx clear without exudates. Moist mucosa NECK: Nontender, no stepoffs, Normal ROM, supple, no lymphadenopathy, JVD, or masses LUNGS: Breath sounds equal, clear to auscultation bilaterally. No wheezes, and no crackles HEART: Regular rate and rhythm, normal S1 and S2, no murmurs, rubs or gallops ABDOMEN: + LLQ TTP, normoactive bowel sounds. No guarding, no rebound. No masses EXTREMITIES: Normal range of motion, no edema. No clubbing or cyanosis. No cords, erythema, or tenderness NEUROLOGICAL: Cranial nerves II through XII intact. 5/5 strength and sensation in all extremities, Normal speech, normal gait, normal cerebellar function SKIN: Warm, Dry, normal turgor, no rashes or lesions noted. - Medical Decision Making 03/25/18 20:47 72 F with LLQ pain, diarrhea. Suspect colitis/diverticulitis. - Labs - CTAP - IVF, pain control
[2018-03-25] MEDS ORDERED: ACETAMINOPHEN INJECTION 100 ML IVPB ONE (21:12)
--- NOTE | 2018-03-25 21:15 | PN ---
Teaching Attending Note Name of Resident: Harish Cagle ATTENDING PHYSICIAN STATEMENT I saw and evaluated the patient. I reviewed the resident's note and discussed the case with the resident. I agree with the resident's findings and plan as documented. SUBJECTIVE: Seen and examined; please refer to resident note for further historical details. Briefly, this is a 72 y/o CF with a PMH significant for lupus, diverticulosis, thyroid disorder, HTN, HLD, Pancreatitis s/p pancreatic stent, osteoporosis. She presents for persistent abdominal pain (L-sided, not made better or worse with anything) accompanied by diarrha (non-bloody, malodorous). She follows with Dr. Calderon for GI and had an appointment today but felt her sx were too severe so she came to the emergency room. No WBC, no fever, Slight tachycardia on presentation to 107 with normal BP (SBP 150s). Negative lactate, negative lipase. Given APAP and fluids in the ER. CT shows ileus and potential bowel wall thickening which may represent enteritis. When I saw her a second time she had collected various pieces of tissue/pads that she had been wiping herself with; appeared to be stool and BRBPR. She endorsed a history of hemorrhoids. She tells me that she is concerned about things living in her stool; provided reassurance. 10 sys ROS done and negative aside from HPI PMH and PSH reviewed FH asked and noncontributory Social hx reviewed Medication list reviewed; reconciliation pending OBJECTIVE: VS, labs, imaging reviewed NAD, AAO, resting in bed NC AT EOMI PERRLA Slight tenderness with no rebound or guarding, nondistended, +BS RRR s1/2 no mgr Lungs CTAB w/ sym exp CN2-12 wnl, no fnd Normal mood, appropriate affect Labs show unremarkable CBC; BMP shows Cl of 114 and glucose of 162. Negative lactate, negative lipase. CT abdomen shows localized ileus with potential slight bowel wall thickening that may represent enteritis ASSESSMENT AND PLAN: Patient presents with abdominal pain and diarrhea found to have localized ileus with potential enteritis on CT scan. 1) Acute Diarrheal Illness; enteritis with localized ileus. -Seen on CT; no fever and no white count. Mild tachycardia likely due to fluid depletion due to this and it did resolve with fluids. Negative lipase and lactate. -Monitor for BM; check abdominal XR in the AM to r/o any developing obstruction -As she can tolerate PO we will go ahead and place her on a 7 day course of PO Levaquin and PO Flagyl -Checking stool studies -Monitor on med surg; maintenance fluids overnight. Monitor for resolution of sx. 2) Hx Lupus -She is concerned that she may be having a flare though this isn't her typical symptoms; will check an ESR/CRP and consult rheumatology. 3) Hyperglycemia -162 on BMP 4) Hx HTN -Monitor and reconcile meds 5) Hx HLD -Continue home meds 6) Hx Pancreatitis s/p pancreatic stenting -Obtain old records; continue to monitor. Negative lipase 7) Hx Osteoporosis -No issues; monitor 8) Hx Thyroid disease -Check TSH; reconcile home meds 9) Hx Diverticulosis -No issues noted on CT 10) BRBPR -Happens when she wipes; not mixed with stool. History of hemorrhoids. BID CBC and monitor for further bleeding. No bloody stool in the ER. Will discuss with GI.
--- NOTE | 2018-03-25 22:24 | HP ---
CHIEF COMPLAINT: diarrhea and abdominal pain PCP: Edgard HISTORY OF PRESENT ILLNESS: 72 yo female with PMH of Lupus, diverticulosis, HLD, past pancreatitis requiring stent placement, hemorrhoids admitted with complaint of worsening foul smelling diarrhea with LLQ abdominal pain. She says that the diarrhea has been happening since her pancreatic stent was removed in June of 2017 and has been progressively worsening. She said at first it was with certain foods ( mentions cheeseburgers) though she states that recently it has been with most all food. She states that she has required diapers due to decreased ability to control her bowels until she can get to the bathroom. She describes the diarrhea as foul smelling with small red and black things "with a tail that look like sperm." Of note she endorses numerous bug bites but states that she only gets them at night and that she thinks they are coming from her heating system. She endorses that she believes the bug bites and the diarrhea may be related. She had a GI appointment earlier today, however was unable to make it due to her diarrhea. She denies any fevers (though states she never has fevers for anything), but does endorse some recent chills. ER course was notable for: (1) CT Abd/Pelvis with mild wall thickening suggestive of enteritis and possible ileus (2) 1L NS, Tylenol (3) Recent Travel: none PAST MEDICAL HISTORY: As above PAST SURGICAL HISTORY: "Stent for pancreatitis" which became infected and was removed Cholecystectomy Social History: Smoking: Denies Alcohol: Denies Drugs: Denies Family History: Allergies cat dander Allergy (Verified 03/25/18 16:16) lactose Allergy (Verified 03/25/18 16:16) No Known Drug Allergies Allergy (Verified 03/25/18 16:16) HOME MEDICATIONS: Home Medications Medication Instructions Recorded Calcium Carbonate/Vitamin D3 1 each PO TID 07/10/16 [Oyster Shell 500-Vit D3 200 Tb] Ferrous Gluconate [Ferate] 324 mg PO DAILY 07/10/16 Gemfibrozil [Lopid -] 600 mg PO BID 07/10/16 Hydrocodone/Acetaminophen [[place] 1 each PO BID 07/10/16 10-325 Tablet] Hydroxychloroquine So4 [Plaquenil 200 mg PO BID 07/10/16 -] Lactase [Dairy Relief] 3,000 unit PO TID 07/10/16 Linagliptin [Tradjenta] 5 mg PO DAILY 07/10/16 Magnesium Oxide [Mag-Ox -] 400 mg PO BID 07/10/16 Metoprolol Tartrate [Lopressor -] 37.5 mg PO BID 07/10/16 Multivitamin [Poly-Vitamin] 1 each PO DAILY 07/10/16 Sertraline HCl [Zoloft] 75 mg PO DAILY 07/10/16 Sodium Fluoride [Prevident (Nf)] 60 gm DT BID 07/10/16 Tobramycin/Dexamethasone [Tobradex 1 drop OU TID 07/10/16 Eye Drops] Zolpidem Tartrate [Ambien] 10 mg PO HS 07/10/16 clonazePAM [KlonoPIN] 0.5 mg PO TID 07/10/16 metFORMIN HCL [Metformin HCl ER] 1,000 mg PO BID 07/10/16 predniSONE [Deltasone -] 10 mg PO DAILY 07/10/16 Amlodipine Besylate [Norvasc -] 5 mg PO DAILY 03/25/18 Ascorbic Acid [Vitamin C -] 250 mg PO DAILY 03/25/18 Dextroamphetamine/Amphetamine 1 tab PO TID 03/25/18 [Adderall Xr 20 mg Capsule] Duloxetine HCl [Cymbalta -] 60 mg PO DAILY 03/25/18 Ergocalciferol (Vitamin D2) 50,000 unit PO WEEKLY 03/25/18 [Vitamin D2] Gabapentin [Neurontin -] 100 mg PO HS 03/25/18 Levothyroxine [Synthroid -] 88 mcg PO DAILY 03/25/18 Loratadine [Claritin -] 10 mg PO DAILY 03/25/18 Oxybutynin Chloride [Oxybutynin 5 mg PO DAILY 03/25/18 Chloride ER] Tobramycin/Dexamethasone [Tobradex 5 ml OP ASDIR 03/25/18 Eye Drops] REVIEW OF SYSTEMS CONSTITUTIONAL: chills, generalized weakness Absent: fever, , diaphoresis, malaise, loss of appetite, weight change HEENT: Absent: rhinorrhea, nasal congestion, throat pain, throat swelling, difficulty swallowing, mouth swelling, ear pain, eye pain, visual changes CARDIOVASCULAR: Absent: chest pain, syncope, palpitations, irregular heart rate, lightheadedness , peripheral edema RESPIRATORY: Absent: cough, shortness of breath, dyspnea with exertion, orthopnea, wheezing, stridor, hemoptysis GASTROINTESTINAL: abdominal pain, nausea, diarrhea Absent: , abdominal distension, vomiting, constipation, melena, hematochezia GENITOURINARY: Absent: dysuria, frequency, urgency, hesitancy, hematuria, flank pain, genital pain MUSCULOSKELETAL: Absent: myalgia, arthralgia, joint swelling, back pain, neck pain SKIN: Absent: rash, itching, pallor HEMATOLOGIC/IMMUNOLOGIC: Absent: easy bleeding, easy bruising, lymphadenopathy, frequent infections ENDOCRINE: Absent: unexplained weight gain, unexplained weight loss, heat intolerance, cold intolerance NEUROLOGIC: Absent: headache, focal weakness or paresthesias, dizziness, unsteady gait, seizure, mental status changes, bladder or bowel incontinence PSYCHIATRIC: Absent: anxiety, depression, suicidal or homicidal ideation, hallucinations. PHYSICAL EXAMINATION Vital Signs - 24 hr 03/25/18 16:29 Temperature 97.9 F Pulse Rate 107 H Respiratory 18 Rate Blood Pressure 150/88 O2 Sat by Pulse 98 Oximetry (%) GENERAL: A&O, no acute distress HEAD: Normocephalic, atraumatic. EYES: PERRL, no scleral icterus EARS, NOSE, THROAT: oropharynx clear without exudates. Moist mucous membranes. NECK: supple without lymphadenopathy LUNGS: CTA b/l, no crackles or wheezes HEART: Regular rate and rhythm, normal S1 and S2 without murmur ABDOMEN: Soft, mildly tender to palpation in LLQ, normoactive to hyperactive bowel sounds MUSCULOSKELETAL: No bony deformities or tenderness. EXTREMITIES: warm, well-perfused. No peripheral edema. NEUROLOGICAL: Cranial nerves II-XII grossly intact. Normal speech. SKIN: Warm, dry, no rashes. Few small lesions with erythema and scabbing < 2x2 mm Laboratory Results - last 24 hr 03/25/18 03/25/18 03/25/18 16:39 16:39 16:39 WBC 7.4 RBC 3.66 Hgb 11.8 Hct 33.3 MCV 91.0 MCH 32.3 MCHC 35.5 RDW 13.0 Plt Count 276 MPV 7.8 Absolute Neuts (auto) 5.1 Neutrophils % 69.4 Lymphocytes % 19.0 D Monocytes % 9.2 Eosinophils % 1.9 Basophils % 0.5 Nucleated RBC % 0 Sodium 143 Potassium 3.6 Chloride 114 H Carbon Dioxide 23 Anion Gap 7 L BUN 17 Creatinine 0.6 Creat Clearance w eGFR > 60 Random Glucose 162 H Lactic Acid 0.7 Calcium 8.6 Magnesium 2.0 Total Bilirubin 0.3 AST 12 L ALT 15 Alkaline Phosphatase 52 Total Protein 6.6 Albumin 3.5 Lipase 232 ASSESSMENT/PLAN: 72 yo female with PMH of Lupus, diverticulosis, HLD, past pancreatitis requiring stent placement, hemorrhoids admitted with complaint of worsening foul smelling diarrhea with LLQ abdominal pain. Diarrhea likely secondary to Enteritis with localized Ileus -CT Abdomen pelvis noted -Pt will need outpatient GI follow up and likely require colonoscopy -Attempt to retrieve records from outpatient GI (Dr. Calderon) -Flagyl 500 PO Daily -Levaquin 750 mg PO Daily -LR @ 75 cc/hr -Advance diet as tolerated -KUB flat plate in AM to r/o any signs of obstruction -Lipase negative -Bright blood noted on pad that patient presented, not mixed with stool -H/H stable, trend CBC BID for now -GI Consulted NIDDM -BGMs ACHS -ISS for glycemic control HTN -Norvasc 5 mg PO Daily -Lopressor 37.5 mg PO BID HLD -Gemfibrozil 600 mg PO BID Lupus -Currently stable though complaining of pain -Restart home lupus medications -Mentions her pain is similar to a flare -ESR, CRP, Rheumatology consult Hypothyroid -Synthroid 88 mcg PO AM Hyperglycemia -Glucose 162 on BMP, repeat bmp in AM DVT Prophylaxis -Lovenox 40 mg SQ Daily FEN -Fluids: LR @ 75 cc/hr -Electrolytes: No electrolyte abnormalities, BMP in AM -Nutrition: NPO Disposition Med/Surg Visit type - Emergency Visit Emergency Visit: Yes ED Registration Date: 03/25/18 Care time: The patient presented to the Emergency Department on the above date and was hospitalized for further evaluation of their emergent condition. - New Patient This patient is new to me today: Yes Date on this admission: 03/26/18 - Critical Care Critical Care patient: No
[2018-03-25] MEDS: LACTATED RINGERS SOLUTION 1,000 ML/1,000 ML INFUS.BAG IV SCH (23:29)
[2018-03-25] MEDS: metroNIDAZOLE 250 MG TABLET PO SCH (23:29)
[2018-03-26] MEDS ORDERED: oxyCODONE HCL 5 MG TABLET PO PRN (03:49)
[2018-03-26] MEDS ORDERED: ACETAMINOPHEN 325 MG TABLET (FP) PO PRN (03:49)
[2018-03-26] MEDS ORDERED: ACETAMINOPHEN 325 MG TABLET (FP) ONE (03:51)
[2018-03-26] MEDS ORDERED: oxyCODONE HCL 5 MG TABLET ONE (03:51)
[2018-03-26] MEDS ORDERED: LACTASE 3000 UNIT PO SCH (06:00)
[2018-03-26] MEDS: metroNIDAZOLE 250 MG TABLET PO SCH ×3 (06:10→21:41)
[2018-03-26] MEDS: CALCIUM 500MG/VIT-D 200 UNITS COMBO TABLET (FP) PO SCH ×3 (06:10→21:36)
[2018-03-26] MEDS: clonazePAM 0.5 MG TABLET PO SCH ×3 (06:10→21:38)
[2018-03-26 07:19] LABS: BASO % 0.4 % (0-2.0); HEMATOCRIT 32.9 % (32.4-45.2); HEMOGLOBIN 10.8 GM/dL (10.7-15.3); LYMPH % 15.7 % (8-40); MCH 30.4 pg (25.7-33.7); MCHC 32.8 g/dl (32.0-36.0); MEAN CELL VOLUME 92.6 fl (80-96); MEAN PLT VOLUME 7.7 fl (7.5-11.1); MONO % 7.3 % (3.8-10.2); NEUT % 74.6 % (42.8-82.8); PLATELET COUNT 248 K/MM3 (134-434); RBC 3.55 M/mm3 (3.60-5.2); RDW 13.2 % (11.6-15.6)
[2018-03-26 07:47] LABS: ALBUMIN 3.4 g/dl (3.4-5.0); ALK PHOS 51 U/L (45-117); ANION GAP 5 MMOL/L (8-16); BILIRUBIN,TOTAL 0.3 mg/dL (0.2-1); BLOOD UREA NITROGEN 16 mg/dL (7-18); CALCIUM 8.1 mg/dL (8.5-10.1); CHLORIDE 115 mmol/L (98-107); CO2 25 mmol/L (21-32); CREATININE 0.7 mg/dL (0.55-1.3); GLUCOSE,RANDOM 179 mg/dL (74-106); POTASSIUM 4.1 mmol/L (3.5-5.1); SGOT/AST 10 U/L (15-37); SGPT/ALT 13 U/L (13-61); SODIUM 144 mmol/L (136-145); TOT PROT 6.2 g/dl (6.4-8.2)
[2018-03-26] MEDS: LEVOTHYROXINE NA 88 MCG TABLET (FP) PO SCH (10:21)
[2018-03-26] MEDS: GEMFIBROZIL 600 MG TABLET (FP) PO SCH ×2 (10:21→17:27)
[2018-03-26] MEDS: LACTATED RINGERS SOLUTION 1,000 ML/1,000 ML INFUS.BAG IV SCH (10:48)
[2018-03-26] MEDS: ENOXAPARIN NA (PORCINE) 40 MG/0.4 ML DISP.SYRIN SQ SCH (11:05)
[2018-03-26] MEDS: LORATADINE 10 MG TABLET PO SCH (11:06)
[2018-03-26] MEDS: DULoxetine HCL 30 MG CAPSULE.DR (FP) PO SCH (11:06)
[2018-03-26] MEDS: amLODIPine BESYLATE 5 MG TABLET (FP) PO SCH (11:06)
[2018-03-26] MEDS: predniSONE 10 MG TABLET (UD) PO SCH (11:06)
[2018-03-26] MEDS: METOPROLOL TARTRATE 25 MG TABLET (FP) PO SCH ×2 (11:06→21:37)
[2018-03-26] MEDS: SERTRALINE HCL 25 MG TABLET (FP) PO SCH (11:06)
[2018-03-26] MEDS: SOLIFENACIN SUCCINATE 5 MG TAB (FP) PO SCH (11:06)
[2018-03-26] MEDS: MULTIVITAMINS (DAILY MVI) TABLET (FP) PO SCH (11:07)
[2018-03-26] MEDS: oxyCODONE HCL 5 MG TABLET PO PRN ×2 (11:15→20:06)
--- NOTE | 2018-03-26 11:15 | PN ---
Progress Note (short form) - Note Progress Note: she is comfortable she ate a sandwich last night and tolerated will no fever or chills she has no diarrhea no vomiting she has no nausea vs Vital Signs Period Temp Pulse Resp BP Sys/Beckman Pulse Ox Last 24 Hr 97.7 F-98.6 F 79-107 18-18 143-157/64-88 98-99 CBC, BMP 03/26/18 07:09 03/26/18 07:09 Her repeat x rays of abd is better the last night Heent nad neck supple lungs clear heart no abnormal heart sounds ext no edema abd she is soft and non tender and normal BS Current Medications Acetaminophen (Tylenol -) 325 mg PO Q6H PRN PRN Reason: PAIN LEVEL 6-10 Amlodipine Besylate (Norvasc -) 5 mg PO DAILY [facility] Last Admin: 03/26/18 11:06 Dose: 5 mg Ascorbic Acid (Vitamin C -) 250 mg PO DAILY [facility] Calcium Carbonate/Cholecalciferol (Os-Jason 500+D -) 1 tab PO TID [facility] Last Admin: 03/26/18 06:10 Dose: 1 tab Clonazepam (Klonopin -) 0.5 mg PO TID [facility] Last Admin: 03/26/18 06:10 Dose: 0.5 mg Duloxetine HCl (Cymbalta -) 60 mg PO DAILY [facility] Last Admin: 03/26/18 11:06 Dose: 60 mg Enoxaparin Sodium (Lovenox -) 40 mg SQ DAILY [facility] Last Admin: 03/26/18 11:05 Dose: 40 mg Ergocalciferol (Drisdol -) 50,000 unit PO Mo@1000 [facility] Ferrous Gluconate (Fergon -) 324 mg PO DAILY [facility] Gabapentin (Neurontin -) 100 mg PO HS [facility] Gemfibrozil (Lopid -) 600 mg PO BIDAC [facility] Last Admin: 03/26/18 10:21 Dose: Not Given Hydroxychloroquine Sulfate (Plaquenil -) 200 mg PO BID [facility] Lactated Ringer's (Lactated Ringers Solution) 1,000 ml in 1,000 mls @ 75 mls/ hr IV ASDIR [facility] Last Admin: 03/26/18 10:48 Dose: 75 mls/hr Levofloxacin 250 mg/ (Levofloxacin 500 mg) 750 mg PO DAILY@0600 [facility] Last Admin: 03/26/18 06:10 Dose: 750 mg Levothyroxine Sodium (Synthroid -) 88 mcg PO DAILY@0700 [facility] Last Admin: 03/26/18 10:21 Dose: Not Given Loratadine (Claritin -) 10 mg PO DAILY [facility] Last Admin: 03/26/18 11:06 Dose: 10 mg Metoprolol Tartrate (Lopressor -) 37.5 mg PO BID [facility] Last Admin: 03/26/18 11:06 Dose: 37.5 mg Metronidazole (Flagyl -) 500 mg PO TID [facility] Last Admin: 03/26/18 06:10 Dose: 500 mg Multivitamins/Minerals/Vitamin C (Tab-A-Vit -) 1 tab PO DAILY [facility] Last Admin: 03/26/18 11:07 Dose: 1 tab Oxycodone HCl (Roxicodone -) 5 mg PO Q6H PRN PRN Reason: PAIN LEVEL 6-10 Prednisone (Deltasone -) 10 mg PO DAILY [facility] Last Admin: 03/26/18 11:06 Dose: 10 mg Sertraline HCl (Zoloft -) 75 mg PO DAILY [facility] Last Admin: 03/26/18 11:06 Dose: 75 mg Solifenacin (Vesicare -) 5 mg PO DAILY [facility] Last Admin: 03/26/18 11:06 Dose: 5 mg Zolpidem Tartrate (Ambien -) 5 mg PO HS PRN PRN Reason: INSOMNIA ASSESSMENT AND PLAN: Patient presents with abdominal pain and diarrhea found to have localized ileus with potential enteritis on CT scan. 1) Acute Diarrheal Illness; enteritis with localized ileus. she is much better and hungry will start diet on her from clear to advance continue iv fluids 2) Hx Lupus -She is concerned that she may be having a flare though this isn't her typical symptoms; consult rheumatology. 3) Hyperglycemia -162 on BMP 4) Hx HTN -Monitor continue meds 5) Hx HLD -Continue home meds advised pt to walk around and out of bed
[2018-03-26] MEDS: ACETAMINOPHEN 325 MG TABLET (FP) PO PRN ×2 (11:16→20:06)
--- NOTE | 2018-03-26 11:44 | CON.GI ---
Consult Consult Specialty:: GI Referred by:: Hospitalist Reason for Consultation:: Diarrhea - History of Present Illness Chief Complaint: Diarrhea History of Present Illness: 72F admitted from assisted living for evaluation of diarrhea and abdominal pain. She states that the diarrhea was green and foul smelling and has been occurring over the last few days. She reports being on a Z-Terence 2 weeks ago for an URI. She has a history of complicated pancreatitis, as the ER note in the [facility] system from 07/10/16 suggests. She was transferred to [facility] at that time, had a "pancreas surgery" and "stent placed and removed" as well. She states following with Dr. Jared Calderon, counselor dormitory at [facility] and Craig Craig, [employer] in [place]. She states that Dr. Calderon was treating her for the pancreas problem while Dr. Heath "knows her best" and treated her for a bleeding ulcer. She believes that he performed EGD and colonoscopy on her but cannot recall when. Currently, no stool has been collected as of yet and no diarrhea has been reported. She requests PO pain medications. CT scan of the abdomen and pelvis revealed a questionable ileus / enteritis. - History Source History Provided By: Patient, Medical Record Limitations to Obtaining History: No Limitations - Past Medical History Gastrointestinal: Yes: Diverticulosis, Hemorrhoids, Pancreatitis (A outlined in the 07/10/16 ER note, at which time she was transferred to [facility]. ) Rheumatology: Yes: Lupus, Other (OA, osteoporosis) - Past Surgical History Past Surgical History: Yes: Cholecystectomy Additional Surgical History: Pancreas surgery, ? pancreatic / biliary stent placement and removal? - Alcohol/Substance Use Hx Alcohol Use: No History of Substance Use: reports: None - Smoking History Smoking history: Smoker current status UNK Have you smoked in the past 12 months: No Aproximately how many cigarettes per day: 0 - Social History Usual Living Arrangement: Assisted Living ADL: Independent Occupation: Disabled Place of : [facility] History of Recent Travel: No Home Medications - Allergies Allergies/Adverse Reactions: Allergies Allergy/AdvReac Type Severity Reaction Status Date / Time cat dander Allergy Verified 03/25/18 16:16 lactose Allergy Verified 03/25/18 16:16 No Known Drug Allergies Allergy Verified 03/25/18 16:16 - Home Medications Home Medications: Ambulatory Orders Calcium Carbonate/Vitamin D3 [Oyster [place] 500-Vit D3 200 Tb] 1 each PO TID Ferrous Gluconate [Ferate] 324 mg PO DAILY 07/10/16 Gemfibrozil [Lopid -] 600 mg PO BID 07/10/16 Hydrocodone/Acetaminophen [[place] 10-325 Tablet] 1 each PO BID 07/10/16 Hydroxychloroquine So4 [Plaquenil -] 200 mg PO BID 07/10/16 Lactase [Dairy Relief] 3,000 unit PO TID 07/10/16 Linagliptin [Tradjenta] 5 mg PO DAILY 07/10/16 Magnesium Oxide [Mag-Ox -] 400 mg PO BID 07/10/16 Metoprolol Tartrate [Lopressor -] 37.5 mg PO BID 07/10/16 Multivitamin [Poly-Vitamin] 1 each PO DAILY 07/10/16 Sertraline HCl [Zoloft] 75 mg PO DAILY 07/10/16 Sodium Fluoride [Prevident (Nf)] 60 gm DT BID 07/10/16 Tobramycin/Dexamethasone [Tobradex Eye Drops] 1 drop OU TID 07/10/16 Zolpidem Tartrate [Ambien] 10 mg PO HS 07/10/16 clonazePAM [KlonoPIN] 0.5 mg PO TID 07/10/16 metFORMIN HCL [Metformin HCl ER] 1,000 mg PO BID 07/10/16 predniSONE [Deltasone -] 10 mg PO DAILY 07/10/16 Amlodipine Besylate [Norvasc -] 5 mg PO DAILY 03/25/18 Ascorbic Acid [Vitamin C -] 250 mg PO DAILY 03/25/18 Dextroamphetamine/Amphetamine [Adderall Xr 20 mg Capsule] 1 tab PO TID 03/25/18 Duloxetine HCl [Cymbalta -] 60 mg PO DAILY 03/25/18 Ergocalciferol (Vitamin D2) [Vitamin D2] 50,000 unit PO WEEKLY 03/25/18 Gabapentin [Neurontin -] 100 mg PO HS 03/25/18 Levothyroxine [Synthroid -] 88 mcg PO DAILY 03/25/18 Loratadine [Claritin -] 10 mg PO DAILY 03/25/18 Oxybutynin Chloride [Oxybutynin Chloride ER] 5 mg PO DAILY 03/25/18 Tobramycin/Dexamethasone [Tobradex Eye Drops] 5 ml OP ASDIR 03/25/18 Family Disease History - Family Disease History Family Disease History: Other: Father (: 26: polio complications), Mother ( : 82: BCA and complication from lung surgery), Brother (1, healthy), Sister (1, not in touch), Son (1, healthy) Other Family History: Maternal GM with colon cancer Review of Systems - Review of Systems Constitutional: reports: Unintentional Wgt. Loss Cardiovascular: denies: Chest Pain Respiratory: denies: Cough, SOB Gastrointestinal: reports: Abdominal Pain, Diarrhea, Nausea. denies: Dysphagia , Indigestion, Melena, Vomiting, Vomiting Blood Physical Exam-GI Vital Signs: Vital Signs Temperature 98.6 F 03/26/18 09:42 Pulse Rate 79 03/26/18 09:42 Respiratory Rate 18 03/26/18 09:42 Blood Pressure 143/64 03/26/18 09:42 O2 Sat by Pulse Oximetry (%) 98 03/26/18 06:08 Constitutional: Yes: Calm Eyes: No: Sclera Icterus Cardiovascular: Yes: Regular Rate and Rhythm Respiratory: Yes: CTA Bilaterally Gastrointestinal Inspection: Yes: Scars (horizontal left upper abdominal surgical scar) ...Auscultate: Yes: Normoactive Bowel Sounds ...Palpate: No: Hepatomegaly, Splenomegaly, Tenderness ...Percussion: No: Tympanitic Edema: No (No LE edema) Neurological: Yes: Alert, Oriented Labs: CBC, BMP 03/26/18 07:09 03/26/18 07:09 Imaging - Results Cat Scan: Report Reviewed, Image Reviewed Problem List - Problems (1) Diarrhea Assessment/Plan: ? Acute gastroenteritis Given recent Abx and fact that she lives in assisted living, CDAD will need to be considered as well No diarrhea for collection as of yet and abdominal exam without focal findings Advise: Stool for C. Diff, O&P, culture Clears If continued complaints of abdominal pain, then NPO and IV hydration Minimize opiate analgesia Arrange follow-up with her counselor dormitory Dr. Craig Heath and biliary endoscopist Dr. Marium Calderon as outpatient Code(s): R19.7 - DIARRHEA, UNSPECIFIED
[2018-03-26] MEDS: ASCORBIC ACID 250 MG TABLET (FP) PO SCH (12:18)
[2018-03-26] MEDS: HYDROXYCHLOROQUINE SO4 200 MG TABLET (FP) PO SCH ×2 (12:19→21:40)
[2018-03-26] MEDS: FERROUS GLUCONATE 324 MG TAB (FP) PO SCH (12:47)
[2018-03-26] MEDS ORDERED: PT OWN MED DRAWER 7, Y5N ONE (19:56)
[2018-03-26] MEDS: GABAPENTIN 100 MG CAPSULE (FP) PO SCH (21:39)
[2018-03-26] MEDS: ZOLPIDEM TARTRATE 5 MG TABLET PO PRN (23:30)
[2018-03-27] MEDS ORDERED: PT OWN MED DRAWER 7, Y5N ONE ×3 (05:44→16:53)
[2018-03-27] MEDS: oxyCODONE HCL 5 MG TABLET PO PRN ×3 (05:45→21:18)
[2018-03-27] MEDS: metroNIDAZOLE 250 MG TABLET PO SCH ×3 (05:46→21:18)
[2018-03-27] MEDS: clonazePAM 0.5 MG TABLET PO SCH ×3 (05:46→21:18)
[2018-03-27] MEDS: CALCIUM 500MG/VIT-D 200 UNITS COMBO TABLET (FP) PO SCH ×3 (05:47→21:18)
[2018-03-27] MEDS: ACETAMINOPHEN 325 MG TABLET (FP) PO PRN ×3 (05:47→21:18)
[2018-03-27] MEDS: LEVOTHYROXINE NA 88 MCG TABLET (FP) PO SCH (06:59)
[2018-03-27] MEDS: LACTATED RINGERS SOLUTION 1,000 ML/1,000 ML INFUS.BAG IV SCH (06:59)
[2018-03-27] MEDS: GEMFIBROZIL 600 MG TABLET (FP) PO SCH ×2 (07:00→17:01)
[2018-03-27] MEDS: DULoxetine HCL 30 MG CAPSULE.DR (FP) PO SCH (10:56)
[2018-03-27] MEDS: SOLIFENACIN SUCCINATE 5 MG TAB (FP) PO SCH (10:56)
[2018-03-27] MEDS: ENOXAPARIN NA (PORCINE) 40 MG/0.4 ML DISP.SYRIN SQ SCH (10:56)
[2018-03-27] MEDS: METOPROLOL TARTRATE 25 MG TABLET (FP) PO SCH ×2 (10:56→21:19)
[2018-03-27] MEDS: MULTIVITAMINS (DAILY MVI) TABLET (FP) PO SCH (10:57)
[2018-03-27] MEDS: SERTRALINE HCL 25 MG TABLET (FP) PO SCH (10:57)
[2018-03-27] MEDS: predniSONE 10 MG TABLET (UD) PO SCH (10:57)
[2018-03-27] MEDS: LORATADINE 10 MG TABLET PO SCH (10:57)
[2018-03-27] MEDS: amLODIPine BESYLATE 5 MG TABLET (FP) PO SCH (10:57)
[2018-03-27] MEDS: FERROUS GLUCONATE 324 MG TAB (FP) PO SCH (10:57)
[2018-03-27] MEDS: ASCORBIC ACID 250 MG TABLET (FP) PO SCH (10:58)
[2018-03-27] MEDS: HYDROXYCHLOROQUINE SO4 200 MG TABLET (FP) PO SCH ×2 (10:58→21:19)
--- NOTE | 2018-03-27 11:01 | PN ---
Physical Exam: SUBJECTIVE: Patient seen and examined. Had not passed stool since yesterday. Stool samples yet to be collected. No n/v,no fevers. Tolerating liquid diet, requesting escalation of diet. Needs assistance to the bathroom. OBJECTIVE: Vital Signs Period Temp Pulse Resp BP Sys/Beckman Pulse Ox Last 24 Hr 98.2 F-98.5 F 62-70 18-18 147-160/76-88 98-98 Vital Signs Temp 98.2 F 03/27/18 09:00 Pulse 90 03/27/18 09:00 Resp 20 03/27/18 09:00 BP 107/58 L 03/27/18 09:00 Pulse Ox 98 03/26/18 21:00 Intake & Output 03/26/18 03/27/18 03/27/18 23:59 11:59 23:59 Intake Total 330 900 Balance 330 900 Intake: IV 900 LACTATED RINGERS SOLUTION 900 1,000 ml In 1,000 ml @ 75 mls/hr IV ASDIR YAW Rx #:[id number] Oral 330 Other: Voiding Method Toilet # Unmeasured Voids Void 1 Bowel Movement No No # Bowel Movements 0 GENERAL: The patient is awake, alert, and fully oriented, in no acute distress. ENT: moist mucous membranes. LUNGS: Breath sounds equal, clear to auscultation bilaterally, no wheezes, no crackles HEART: Regular rate and rhythm, S1, S2 ABDOMEN: Soft, suprapubic tenderness, nondistended, normoactive bowel sounds, No CVA tenderness EXTREMITIES: 2+ pulses, warm, well-perfused, no edema. NEUROLOGICAL: Cranial nerves II through XII grossly intact. Normal speech, gait not observed. Active Medications Generic Name Dose Route Start Last Admin Trade Name Freq PRN Reason Stop Dose Admin Acetaminophen 325 mg 03/26/18 11:08 03/27/18 05:47 Tylenol - PO 325 mg Q6H PRN Administration PAIN LEVEL 6-10 Amlodipine Besylate 5 mg 03/26/18 10:00 03/27/18 10:57 Norvasc - PO 5 mg DAILY [facility] Administration Ascorbic Acid 250 mg 03/26/18 10:00 03/27/18 10:58 Vitamin C - PO 250 mg DAILY [facility] Administration Calcium Carbonate/Cholecalciferol 1 tab 03/26/18 06:00 03/27/18 05:47 Os-Jason 500+D - PO 1 tab TID [facility] Administration Clonazepam 0.5 mg 03/26/18 06:00 03/27/18 05:46 Klonopin - PO 0.5 mg TID [facility]AW Administration Duloxetine HCl 60 mg 03/26/18 10:00 03/27/18 10:56 Cymbalta - PO 60 mg DAILY [facility] Administration Enoxaparin Sodium 40 mg 03/26/18 10:00 03/27/18 10:56 Lovenox - SQ 40 mg DAILY [facility] Administration Ergocalciferol 50,000 unit 03/28/18 10:00 Drisdol - PO Mo@1000 [facility] Ferrous Gluconate 324 mg 03/26/18 10:00 03/27/18 10:57 Fergon - PO 324 mg DAILY [facility] Administration Gabapentin 100 mg 03/26/18 22:00 03/26/18 21:39 Neurontin - PO 100 mg HS [facility] Administration Gemfibrozil 600 mg 03/26/18 07:00 03/27/18 07:00 Lopid - PO Not Given BIDAC [facility]AW Hydroxychloroquine Sulfate 200 mg 03/26/18 10:00 03/27/18 10:58 Plaquenil - PO 200 mg BID [facility] Administration Lactated Ringer's 1,000 ml in 1,000 mls @ 75 mls/hr 03/25/18 22:30 03/27/18 06:59 Lactated Ringers Solution IV Not Given ASDIR YAW Levofloxacin 250 mg/ 750 mg 03/26/18 06:00 03/27/18 05:47 Levofloxacin 500 mg PO 750 mg DAILY@0600 [facility] Administration Levothyroxine Sodium 88 mcg 03/26/18 07:00 03/27/18 06:59 Synthroid - PO 88 mcg DAILY@0700 [facility] Administration Loratadine 10 mg 03/26/18 10:00 03/27/18 10:57 Claritin - PO 10 mg DAILY [facility] Administration Metoprolol Tartrate 37.5 mg 03/26/18 10:00 03/27/18 10:56 Lopressor - PO 37.5 mg BID [facility] Administration Metronidazole 500 mg 03/25/18 22:30 03/27/18 05:46 Flagyl - PO 500 mg TID [facility] Administration Multivitamins/Minerals/Vitamin C 1 tab 03/26/18 10:00 03/27/18 10:57 Tab-A-Vit - PO 1 tab DAILY [facility] Administration Oxycodone HCl 5 mg 03/26/18 11:09 03/27/18 05:45 Roxicodone - PO 5 mg Q6H PRN Administration PAIN LEVEL 6-10 Prednisone 10 mg 03/26/18 10:00 03/27/18 10:57 Deltasone - PO 10 mg DAILY [facility] Administration Sertraline HCl 75 mg 03/26/18 10:00 03/27/18 10:57 Zoloft - PO 75 mg DAILY [facility] Administration Solifenacin 5 mg 03/26/18 10:00 03/27/18 10:56 Vesicare - PO 5 mg DAILY [facility] Administration Zolpidem Tartrate 5 mg 03/26/18 22:00 03/26/18 23:30 Ambien - PO 5 mg HS PRN Administration INSOMNIA ASSESSMENT/PLAN: 72 yo female with PMH of Lupus, diverticulosis, HLD, past pancreatitis requiring stent placement, hemorrhoids admitted with complaint of worsening foul smelling diarrhea with LLQ abdominal pain. #Diarrhea likely secondary to Enteritis with localized Ileus -CT Abdomen pelvis -Enteritis with localized Ileus -AXR - Distension is improving 03/26/17 -Pt will need outpatient GI follow up and likely require colonoscopy -Attempt to retrieve records from outpatient GI (Dr. Calderon) -Flagyl 500 PO Daily -Levaquin 750 mg PO Daily -Pt tolerating PO, stop LR @ 75 cc/hr -Advance diet to regular #R/O UTI -Pt with suprapubic tenderness and now c/o of increased urinary frequency -UA -Abd US #overactive bladder -Cont vesicare -Pt on diaper - Fll UA #Abdominal pain -Reports chronic pancreatitis and hx of diverticulosis -Lipase negative -Bright blood noted on pad that patient presented, not mixed with stool -H/H stable, trend CBC -GI Consulted -Pain mx with oxycodone -For outpt follow-up with her shift foreman Dr. Craig Heath and biliary endoscopist Dr. Marium Calderon as outpatient #NIDDM -BGMs ACHS -ISS for glycemic control #HTN -Norvasc 5 mg PO Daily -Lopressor 37.5 mg PO BID #HLD -Gemfibrozil 600 mg PO BID #Lupus -Currently stable though complaining of pain -Restart home lupus medications -Mentions her pain is similar to a flare -ESR, CRP, Rheumatology consult -Cont prednisone, plaquenil #Hypothyroid -Synthroid 88 mcg PO AM #Hyperglycemia -Glucose 162 on BMP, repeat bmp in AM #Insomnai -Ambien #DVT Prophylaxis -Lovenox 40 mg SQ Daily #FEN -Fluids no fluids -Electrolytes: No electrolyte abnormalities, BMP in AM -Nutrition: NPO #Disposition -Med/Surg Visit type - Emergency Visit Emergency Visit: Yes ED Registration Date: 03/25/18 Care time: The patient presented to the Emergency Department on the above date and was hospitalized for further evaluation of their emergent condition. - New Patient This patient is new to me today: Yes Date on this admission: 03/27/18 - Critical Care Critical Care patient: No - Discharge Referral Referred to [facility] Med [facility] No
--- NOTE | 2018-03-27 12:28 | PN ---
GI Progress Note Subjective: Sitting up in bed, no distress admitted for profuse diarrhea. No BM since yesterday Complains of pelvic discomfort States was urinating a lot of late - Objective Vital Signs: Vital Signs Temperature 98.2 F 03/27/18 09:00 Pulse Rate 90 03/27/18 09:00 Respiratory Rate 20 03/27/18 09:00 Blood Pressure 107/58 L 03/27/18 09:00 O2 Sat by Pulse Oximetry (%) 98 03/26/18 21:00 Constitutional: Calm Eyes: No: Sclera Icterus Cardiovascular: Yes: Regular Rate and Rhythm Respiratory: Yes: CTA Bilaterally Gastrointestinal Inspection: No: Distention ...Auscultate: Yes: Normoactive Bowel Sounds ...Palpate: Yes: Tenderness (TTP suprapubic area) ...Percussion: No: Tympanitic Edema: No (No LE edema) Labs: CBC, BMP 03/26/18 07:09 03/26/18 07:09 Problem List - Problems (1) Diarrhea Assessment/Plan: No diarrhea as of yet: Stool for culture, C. Diff, O&P when able Suprapubic tenderness upon palpation and urinary complaints. Consider UA and further evaluation of urinary complaints per PMD Code(s): R19.7 - DIARRHEA, UNSPECIFIED
--- NOTE | 2018-03-27 12:55 | PN ---
Teaching Attending Note Name of Resident: Riya Jones ATTENDING PHYSICIAN STATEMENT I saw and evaluated the patient. I reviewed the resident's note and discussed the case with the resident. I agree with the resident's findings and plan as documented. SUBJECTIVE:she has no diarrhea and c/o mild pain suprapubic ate well and no vomiting OBJECTIVE: Vital Signs Period Temp Pulse Resp BP Sys/Beckman Pulse Ox Last 24 Hr 98.2 F-98.5 F 62-90 18-20 107-160/58-88 98 Heent nad neck supple lungs clear heart no change abd soft and has mild suprapubic tenderness but no rebound bs normal Current Medications Acetaminophen (Tylenol -) 325 mg PO Q6H PRN PRN Reason: PAIN LEVEL 6-10 Last Admin: 03/27/18 05:47 Dose: 325 mg Amlodipine Besylate (Norvasc -) 5 mg PO DAILY [facility] Last Admin: 03/27/18 10:57 Dose: 5 mg Ascorbic Acid (Vitamin C -) 250 mg PO DAILY [facility] Last Admin: 03/27/18 10:58 Dose: 250 mg Calcium Carbonate/Cholecalciferol (Os-Jason 500+D -) 1 tab PO TID [facility] Last Admin: 03/27/18 05:47 Dose: 1 tab Clonazepam (Klonopin -) 0.5 mg PO TID [facility] Last Admin: 03/27/18 05:46 Dose: 0.5 mg Duloxetine HCl (Cymbalta -) 60 mg PO DAILY [facility] Last Admin: 03/27/18 10:56 Dose: 60 mg Enoxaparin Sodium (Lovenox -) 40 mg SQ DAILY [facility] Last Admin: 03/27/18 10:56 Dose: Not Given Ergocalciferol (Drisdol -) 50,000 unit PO Mo@1000 [facility] Ferrous Gluconate (Fergon -) 324 mg PO DAILY [facility] Last Admin: 03/27/18 10:57 Dose: 324 mg Gabapentin (Neurontin -) 100 mg PO HS [facility] Last Admin: 03/26/18 21:39 Dose: 100 mg Gemfibrozil (Lopid -) 600 mg PO BIDAC [facility] Last Admin: 03/27/18 07:00 Dose: Not Given Hydroxychloroquine Sulfate (Plaquenil -) 200 mg PO BID [facility] Last Admin: 03/27/18 10:58 Dose: 200 mg Levofloxacin 250 mg/ (Levofloxacin 500 mg) 750 mg PO DAILY@0600 [facility] Last Admin: 03/27/18 05:47 Dose: 750 mg Levothyroxine Sodium (Synthroid -) 88 mcg PO DAILY@0700 [facility] Last Admin: 03/27/18 06:59 Dose: 88 mcg Loratadine (Claritin -) 10 mg PO DAILY [facility] Last Admin: 03/27/18 10:57 Dose: 10 mg Metoprolol Tartrate (Lopressor -) 37.5 mg PO BID [facility] Last Admin: 03/27/18 10:56 Dose: 37.5 mg Metronidazole (Flagyl -) 500 mg PO TID [facility] Last Admin: 03/27/18 05:46 Dose: 500 mg Multivitamins/Minerals/Vitamin C (Tab-A-Vit -) 1 tab PO DAILY [facility] Last Admin: 03/27/18 10:57 Dose: 1 tab Oxycodone HCl (Roxicodone -) 5 mg PO Q6H PRN PRN Reason: PAIN LEVEL 6-10 Last Admin: 03/27/18 05:45 Dose: 5 mg Prednisone (Deltasone -) 10 mg PO DAILY [facility] Last Admin: 03/27/18 10:57 Dose: 10 mg Sertraline HCl (Zoloft -) 75 mg PO DAILY [facility] Last Admin: 03/27/18 10:57 Dose: 75 mg Solifenacin (Vesicare -) 5 mg PO DAILY [facility] Last Admin: 03/27/18 10:56 Dose: 5 mg Zolpidem Tartrate (Ambien -) 5 mg PO HS PRN PRN Reason: INSOMNIA Last Admin: 03/26/18 23:30 Dose: 5 mg ASSESSMENT AND PLAN: uti possible she is already on abx eb do ua and c/o gastroenteritis and diarrhea is already better advance diet dc iv fluids awaiting stool specimen for testing oob and move discussed with her possible discharge am
[2018-03-27 19:59] LABS: URINE APPEARANCE CLEAR; URINE BILIRUBIN NEGATIVE (<2.0 mg/dL); URINE COLOR LTYELLOW; URINE GLUCOSE (UA) NEGATIVE (NEGATIVE); URINE KETONE NEGATIVE (NEGATIVE); URINE LEUK ESTERASE TRACE (NEGATIVE); URINE NITRITE NEGATIVE (NEGATIVE); URINE PROTEIN NEGATIVE (NEGATIVE); URINE UROBILINOGEN NEGATIVE mg/dL (0.2-1.0)
[2018-03-27 20:06] LABS: EPI CELLS RARE /HPF (FEW); URINE BACTERIA RARE /hpf (NONE SEEN)
[2018-03-27] MEDS: GABAPENTIN 100 MG CAPSULE (FP) PO SCH (21:18)
[2018-03-27] MEDS: ZOLPIDEM TARTRATE 5 MG TABLET PO PRN (21:18)
[2018-03-28] MEDS ORDERED: PT OWN MED DRAWER 7, Y5N ONE ×4 (05:59→22:01)
[2018-03-28] MEDS: LEVOTHYROXINE NA 88 MCG TABLET (FP) PO SCH (06:29)
[2018-03-28] MEDS: oxyCODONE HCL 5 MG TABLET PO PRN ×3 (06:30→19:55)
[2018-03-28] MEDS: CALCIUM 500MG/VIT-D 200 UNITS COMBO TABLET (FP) PO SCH ×3 (06:30→22:04)
[2018-03-28] MEDS: GEMFIBROZIL 600 MG TABLET (FP) PO SCH ×2 (06:31→18:25)
[2018-03-28] MEDS: metroNIDAZOLE 250 MG TABLET PO SCH ×2 (06:31→13:35)
[2018-03-28] MEDS: ACETAMINOPHEN 325 MG TABLET (FP) PO PRN ×3 (06:31→19:53)
[2018-03-28] MEDS: clonazePAM 0.5 MG TABLET PO SCH ×3 (06:32→22:04)
[2018-03-28 07:21] LABS: BASO % 0.3 % (0-2.0); EOS % 1.8 % (0-4.5); HEMATOCRIT 32.4 % (32.4-45.2); HEMOGLOBIN 10.7 GM/dL (10.7-15.3); LYMPH % 15.5 % (8-40); MCH 30.3 pg (25.7-33.7); MEAN CELL VOLUME 91.8 fl (80-96); MEAN PLT VOLUME 7.6 fl (7.5-11.1); MONO % 8.5 % (3.8-10.2); NEUT % 73.9 % (42.8-82.8); PLATELET COUNT 243 K/MM3 (134-434); RBC 3.53 M/mm3 (3.60-5.2); RDW 13.2 % (11.6-15.6); WHITE BLOOD COUNT 7.9 K/mm3 (4.0-10.0)
[2018-03-28 08:05] LABS: ALBUMIN 3.3 g/dl (3.4-5.0); ALK PHOS 44 U/L (45-117); ANION GAP 9 MMOL/L (8-16); BILIRUBIN,TOTAL 0.3 mg/dL (0.2-1); BLOOD UREA NITROGEN 22 mg/dL (7-18); CALCIUM 8.5 mg/dL (8.5-10.1); CHLORIDE 110 mmol/L (98-107); CO2 24 mmol/L (21-32); CREATININE 0.6 mg/dL (0.55-1.3); GLUCOSE,RANDOM 141 mg/dL (74-106); PHOSPHOROUS 2.7 mg/dL (2.5-4.9); POTASSIUM 3.3 mmol/L (3.5-5.1); SGOT/AST 10 U/L (15-37); SGPT/ALT 13 U/L (13-61); SODIUM 142 mmol/L (136-145); TOT PROT 5.8 g/dl (6.4-8.2)
[2018-03-28] MEDS ORDERED: POTASSIUM CHLORIDE TABS 20 MEQ TABLET.ER (FP) PO ONE ×2 (09:15→13:45)
[2018-03-28] MEDS ORDERED: ERGOCALCIFEROL (VITAMIN D2) 50,000 UNIT CAPSULE (FP) PO SCH (10:00)
[2018-03-28] MEDS: predniSONE 10 MG TABLET (UD) PO SCH (10:15)
[2018-03-28] MEDS: SOLIFENACIN SUCCINATE 5 MG TAB (FP) PO SCH (10:15)
[2018-03-28] MEDS: ASCORBIC ACID 250 MG TABLET (FP) PO SCH (10:15)
[2018-03-28] MEDS: DULoxetine HCL 30 MG CAPSULE.DR (FP) PO SCH (10:15)
[2018-03-28] MEDS: FERROUS GLUCONATE 324 MG TAB (FP) PO SCH (10:15)
[2018-03-28] MEDS: HYDROXYCHLOROQUINE SO4 200 MG TABLET (FP) PO SCH ×2 (10:15→22:36)
[2018-03-28] MEDS: amLODIPine BESYLATE 5 MG TABLET (FP) PO SCH (10:16)
[2018-03-28] MEDS: METOPROLOL TARTRATE 25 MG TABLET (FP) PO SCH ×2 (10:16→22:03)
[2018-03-28] MEDS: SERTRALINE HCL 25 MG TABLET (FP) PO SCH (10:16)
[2018-03-28] MEDS: LORATADINE 10 MG TABLET PO SCH (10:16)
[2018-03-28] MEDS: MULTIVITAMINS (DAILY MVI) TABLET (FP) PO SCH (10:16)
[2018-03-28] MEDS: ENOXAPARIN NA (PORCINE) 40 MG/0.4 ML DISP.SYRIN SQ SCH (10:17)
--- NOTE | 2018-03-28 11:54 | PN ---
Progress Note (short form) - Note Progress Note: Patient seen and examined Labs reviewed Reports that after eating last night, had an episode 1h later of diarrhea with mucus, and same thing happened today after breakfast. Shows me a diaper with brown stool with brown mucus. States abdomen feels upset. 03/28/18 06:00 Temperature 98 F Pulse Rate 62 Respiratory 18 Rate Blood Pressure 150/78 O2 Sat by Pulse Oximetry (%) NAD soft NT ND C. diff negative CBC, BMP 03/28/18 06:00 03/28/18 06:00 Hepatic Panel Total Bilirubin 0.3 mg/dL (0.2-1) 03/28/18 06:00 AST 10 U/L (15-37) L 03/28/18 06:00 ALT 13 U/L (13-61) 03/28/18 06:00 Alkaline Phosphatase 44 U/L (45-117) L 03/28/18 06:00 Albumin 3.3 g/dl (3.4-5.0) L 03/28/18 06:00 Unclear etiology of diarrhea at this time Can give loperamide 2mg PRN if necessary for diarrhea Would obtain prior colonoscopy report from primary outpatient GI (see Dr. Cano's note) to see if diarrhea was a problem then, if pt had biopsies for microscopic colitis, etc
--- NOTE | 2018-03-28 15:41 | PN ---
Physical Exam: SUBJECTIVE: Patient seen and examined this morning. She states she is still having some loose and mucus filled stools. She claims that her food is not digesting appropriately. Presents diaper filled with stool and requests it be sent to the lab for analysis. OBJECTIVE: Vital Signs Period Temp Pulse Resp BP Sys/Beckman Pulse Ox Last 24 Hr 98 F-99.2 F 62-71 18-20 129-151/72-78 98 GENERAL: A&O, no acute distress HEAD: Normocephalic, atraumatic. EYES: PERRL, no scleral icterus EARS, NOSE, THROAT: oropharynx clear without exudates. Moist mucous membranes. NECK: supple without lymphadenopathy LUNGS: CTA b/l, no crackles or wheezes HEART: Regular rate and rhythm, normal S1 and S2 without murmur ABDOMEN: Soft, mildly tender to palpation in LLQ, normoactive to hyperactive bowel sounds MUSCULOSKELETAL: No bony deformities or tenderness. EXTREMITIES: warm, well-perfused. No peripheral edema. NEUROLOGICAL: Cranial nerves II-XII grossly intact. Normal speech. SKIN: Warm, dry, no rashes. Laboratory Results - last 24 hr 03/27/18 03/27/18 03/28/18 18:55 18:55 06:00 WBC 7.9 RBC 3.53 L Hgb 10.7 Hct 32.4 MCV 91.8 MCH 30.3 MCHC 33.0 RDW 13.2 Plt Count 243 MPV 7.6 Absolute Neuts (auto) 5.8 Neutrophils % 73.9 Lymphocytes % 15.5 Monocytes % 8.5 Eosinophils % 1.8 Basophils % 0.3 Nucleated RBC % 0 Sodium Potassium Chloride Carbon Dioxide Anion Gap BUN Creatinine Creat Clearance w eGFR Random Glucose Calcium Phosphorus Magnesium Total Bilirubin AST ALT Alkaline Phosphatase Total Protein Albumin Urine Color Ltyellow Urine Appearance Clear Urine pH 7.0 Ur Specific [place] 1.008 L Urine Protein Negative Urine Glucose (UA) Negative Urine Ketones Negative Urine Blood Negative Urine Nitrite Negative Urine Bilirubin Negative Urine Urobilinogen Negative Ur Leukocyte Esterase Trace Urine WBC (Auto) 14 Urine RBC (Auto) <1 Ur Epithelial Cells Rare Urine Bacteria Rare Stool Occult Blood Negative 03/28/18 06:00 WBC RBC Hgb Hct MCV MCH MCHC RDW Plt Count MPV Absolute Neuts (auto) Neutrophils % Lymphocytes % Monocytes % Eosinophils % Basophils % Nucleated RBC % Sodium 142 Potassium 3.3 L Chloride 110 H Carbon Dioxide 24 Anion Gap 9 BUN 22 H Creatinine 0.6 Creat Clearance w eGFR > 60 Random Glucose 141 H Calcium 8.5 Phosphorus 2.7 Magnesium 2.0 Total Bilirubin 0.3 AST 10 L ALT 13 Alkaline Phosphatase 44 L Total Protein 5.8 L Albumin 3.3 L Urine Color Urine Appearance Urine pH Ur Specific [place] Urine Protein Urine Glucose (UA) Urine Ketones Urine Blood Urine Nitrite Urine Bilirubin Urine Urobilinogen Ur Leukocyte Esterase Urine WBC (Auto) Urine RBC (Auto) Ur Epithelial Cells Urine Bacteria Stool Occult Blood Active Medications Generic Name Dose Route Start Last Admin Trade Name Freq PRN Reason Stop Dose Admin Acetaminophen 325 mg 03/26/18 11:08 03/28/18 13:52 Tylenol - PO 325 mg Q6H PRN Administration PAIN LEVEL 6-10 Amlodipine Besylate 5 mg 03/26/18 10:00 03/28/18 10:16 Norvasc - PO 5 mg DAILY [facility] Administration Ascorbic Acid 250 mg 03/26/18 10:00 03/28/18 10:15 Vitamin C - PO 250 mg DAILY [facility] Administration Calcium Carbonate/Cholecalciferol 1 tab 03/26/18 06:00 03/28/18 13:35 Os-Jason 500+D - PO 1 tab TID [facility] Administration Clonazepam 0.5 mg 03/26/18 06:00 03/28/18 13:35 Klonopin - PO 0.5 mg TID [facility] Administration Duloxetine HCl 60 mg 03/26/18 10:00 03/28/18 10:15 Cymbalta - PO 60 mg DAILY [facility] Administration Enoxaparin Sodium 40 mg 03/26/18 10:00 03/28/18 10:17 Lovenox - SQ Not Given DAILY [facility] Ergocalciferol 50,000 unit 03/28/18 10:00 03/28/18 10:16 Drisdol - PO 50,000 unit Mo@1000 [facility] Administration Ferrous Gluconate 324 mg 03/26/18 10:00 03/28/18 10:15 Fergon - PO 324 mg DAILY [facility] Administration Gabapentin 100 mg 03/26/18 22:00 03/27/18 21:18 Neurontin - PO 100 mg HS [facility] Administration Gemfibrozil 600 mg 03/26/18 07:00 03/28/18 06:31 Lopid - PO 600 mg BIDAC [facility] Administration Hydroxychloroquine Sulfate 200 mg 03/26/18 10:00 03/28/18 10:15 Plaquenil - PO 200 mg BID [facility] Administration Levofloxacin 250 mg/ 750 mg 03/26/18 06:00 03/28/18 06:29 Levofloxacin 500 mg PO 750 mg DAILY@0600 [facility] Administration Levothyroxine Sodium 88 mcg 03/26/18 07:00 03/28/18 06:29 Synthroid - PO 88 mcg DAILY@0700 [facility] Administration Loratadine 10 mg 03/26/18 10:00 03/28/18 10:16 Claritin - PO 10 mg DAILY [facility] Administration Metoprolol Tartrate 37.5 mg 03/26/18 10:00 03/28/18 10:16 Lopressor - PO 37.5 mg BID [facility] Administration Metronidazole 500 mg 03/25/18 22:30 03/28/18 13:35 Flagyl - PO 500 mg TID [facility] Administration Multivitamins/Minerals/Vitamin C 1 tab 03/26/18 10:00 03/28/18 10:16 Tab-A-Vit - PO 1 tab DAILY [facility] Administration Oxycodone HCl 5 mg 03/26/18 11:09 03/28/18 13:53 Roxicodone - PO 5 mg Q6H PRN Administration PAIN LEVEL 6-10 Prednisone 10 mg 03/26/18 10:00 03/28/18 10:15 Deltasone - PO 10 mg DAILY [facility] Administration Sertraline HCl 75 mg 03/26/18 10:00 03/28/18 10:16 Zoloft - PO 75 mg DAILY [facility] Administration Solifenacin 5 mg 03/26/18 10:00 03/28/18 10:15 Vesicare - PO 5 mg DAILY [facility] Administration Zolpidem Tartrate 5 mg 03/26/18 22:00 03/27/18 21:18 Ambien - PO 5 mg HS PRN Administration INSOMNIA ASSESSMENT/PLAN: 72 yo female with PMH of Lupus, diverticulosis, HLD, past pancreatitis requiring stent placement, hemorrhoids admitted with complaint of worsening foul smelling diarrhea with LLQ abdominal pain. Diarrhea likely secondary to Enteritis with localized Ileus -CT Abdomen pelvis noted possible ileus/enteritis -Pt will need outpatient GI follow up and likely require colonoscopy -Attempt to retrieve records from outpatient GI (Dr. Calderon) -Flagyl 500 PO Daily -Levaquin 750 mg PO Daily -KUB flat plate improved distension from CT scan -Lipase negative -Stool occult negative -H/H stable, trend CBC -GI Consult appreciated, recommend f/u outpatient with her GI -Stool studies negative NIDDM -BGMs ACHS -ISS for glycemic control HTN -Norvasc 5 mg PO Daily -Lopressor 37.5 mg PO BID HLD -Gemfibrozil 600 mg PO BID Lupus -Currently stable though complaining of pain -Restart home lupus medications -Mentions her pain is similar to a flare -ESR, CRP, Rheumatology consult Hypothyroid -Synthroid 88 mcg PO AM Hyperglycemia -Glucose 162 on BMP, repeat bmp in AM DVT Prophylaxis -Lovenox 40 mg SQ Daily FEN -Fluids: None -Electrolytes: No electrolyte abnormalities, BMP in AM -Nutrition: Diabetic/Na controlled diet Disposition Med/Surg Visit type - Emergency Visit Emergency Visit: Yes ED Registration Date: 03/25/18 Care time: The patient presented to the Emergency Department on the above date and was hospitalized for further evaluation of their emergent condition. - New Patient This patient is new to me today: No - Critical Care Critical Care patient: No
--- NOTE | 2018-03-28 18:42 | PN ---
Teaching Attending Note Name of Resident: Willian Coffey ATTENDING PHYSICIAN STATEMENT I saw and evaluated the patient. I reviewed the resident's note and discussed the case with the resident. I agree with the resident's findings and plan as documented. SUBJECTIVE: Had 1 episode of loose stool overnight with mucus. No melena/ hematochezia. Abdominal pain negligible. No nausea/vomiting. OBJECTIVE: Afebrile/Hemodynamically Stable. Last Vital Signs Temp Pulse Resp BP Pulse Ox 98.4 F 68 18 113/70 98 03/28/18 15:36 03/28/18 15:36 03/28/18 15:36 03/28/18 15:36 03/27/18 21:00 HEENT - Atraumatic, Normocephalic. Heart - S1, S2, RRR L:ungs - clear to auscultation. Abdomen - mild tenderness on deep palpation Left inguinal region. No hernias. No guarding or rebound Extremities - no edema, no calf tenderness. Laboratory Results - last 24 hr 03/27/18 03/27/18 03/28/18 18:55 18:55 06:00 WBC 7.9 RBC 3.53 L Hgb 10.7 Hct 32.4 MCV 91.8 MCH 30.3 MCHC 33.0 RDW 13.2 Plt Count 243 MPV 7.6 Absolute Neuts (auto) 5.8 Neutrophils % 73.9 Lymphocytes % 15.5 Monocytes % 8.5 Eosinophils % 1.8 Basophils % 0.3 Nucleated RBC % 0 Sodium Potassium Chloride Carbon Dioxide Anion Gap BUN Creatinine Creat Clearance w eGFR Random Glucose Calcium Phosphorus Magnesium Total Bilirubin AST ALT Alkaline Phosphatase Total Protein Albumin Urine Color Ltyellow Urine Appearance Clear Urine pH 7.0 Ur Specific [place] 1.008 L Urine Protein Negative Urine Glucose (UA) Negative Urine Ketones Negative Urine Blood Negative Urine Nitrite Negative Urine Bilirubin Negative Urine Urobilinogen Negative Ur Leukocyte Esterase Trace Urine WBC (Auto) 14 Urine RBC (Auto) <1 Ur Epithelial Cells Rare Urine Bacteria Rare Stool Occult Blood Negative 03/28/18 06:00 WBC RBC Hgb Hct MCV MCH MCHC RDW Plt Count MPV Absolute Neuts (auto) Neutrophils % Lymphocytes % Monocytes % Eosinophils % Basophils % Nucleated RBC % Sodium 142 Potassium 3.3 L Chloride 110 H Carbon Dioxide 24 Anion Gap 9 BUN 22 H Creatinine 0.6 Creat Clearance w eGFR > 60 Random Glucose 141 H Calcium 8.5 Phosphorus 2.7 Magnesium 2.0 Total Bilirubin 0.3 AST 10 L ALT 13 Alkaline Phosphatase 44 L Total Protein 5.8 L Albumin 3.3 L Urine Color Urine Appearance Urine pH Ur Specific [place] Urine Protein Urine Glucose (UA) Urine Ketones Urine Blood Urine Nitrite Urine Bilirubin Urine Urobilinogen Ur Leukocyte Esterase Urine WBC (Auto) Urine RBC (Auto) Ur Epithelial Cells Urine Bacteria Stool Occult Blood Current Medications Generic Name Dose Route Start Last Admin Trade Name Andrea PRN Reason Stop Dose Admin Acetaminophen 325 mg 03/26/18 11:08 03/28/18 13:52 Tylenol - PO 325 mg Q6H PRN Administration PAIN LEVEL 6-10 Amlodipine Besylate 5 mg 03/26/18 10:00 03/28/18 10:16 Norvasc - PO 5 mg DAILY [facility] Administration Ascorbic Acid 250 mg 03/26/18 10:00 03/28/18 10:15 Vitamin C - PO 250 mg DAILY [facility] Administration Calcium Carbonate/Cholecalciferol 1 tab 03/26/18 06:00 03/28/18 13:35 Os-Jason 500+D - PO 1 tab TID [facility] Administration Clonazepam 0.5 mg 03/26/18 06:00 03/28/18 13:35 Klonopin - PO 0.5 mg TID [facility] Administration Duloxetine HCl 60 mg 03/26/18 10:00 03/28/18 10:15 Cymbalta - PO 60 mg DAILY [facility] Administration Enoxaparin Sodium 40 mg 03/26/18 10:00 03/28/18 10:17 Lovenox - SQ Not Given DAILY [facility] Ergocalciferol 50,000 unit 03/28/18 10:00 03/28/18 10:16 Drisdol - PO 50,000 unit Mo@1000 [facility] Administration Ferrous Gluconate 324 mg 03/26/18 10:00 03/28/18 10:15 Fergon - PO 324 mg DAILY [facility] Administration Gabapentin 100 mg 03/26/18 22:00 03/27/18 21:18 Neurontin - PO 100 mg HS [facility] Administration Gemfibrozil 600 mg 03/26/18 07:00 03/28/18 18:25 Lopid - PO Not Given BIDAC [facility] Hydroxychloroquine Sulfate 200 mg 03/26/18 10:00 03/28/18 10:15 Plaquenil - PO 200 mg BID [facility] Administration Levofloxacin 250 mg/ 750 mg 03/26/18 06:00 03/28/18 06:29 Levofloxacin 500 mg PO 750 mg DAILY@0600 [facility] Administration Levothyroxine Sodium 88 mcg 03/26/18 07:00 03/28/18 06:29 Synthroid - PO 88 mcg DAILY@0700 [facility] Administration Loratadine 10 mg 03/26/18 10:00 03/28/18 10:16 Claritin - PO 10 mg DAILY [facility] Administration Metoprolol Tartrate 37.5 mg 03/26/18 10:00 03/28/18 10:16 Lopressor - PO 37.5 mg BID [facility] Administration Metronidazole 500 mg 03/25/18 22:30 03/28/18 13:35 Flagyl - PO 500 mg TID [facility] Administration Multivitamins/Minerals/Vitamin C 1 tab 03/26/18 10:00 03/28/18 10:16 Tab-A-Vit - PO 1 tab DAILY [facility] Administration Oxycodone HCl 5 mg 03/26/18 11:09 03/28/18 13:53 Roxicodone - PO 5 mg Q6H PRN Administration PAIN LEVEL 6-10 Prednisone 10 mg 03/26/18 10:00 03/28/18 10:15 Deltasone - PO 10 mg DAILY [facility] Administration Sertraline HCl 75 mg 03/26/18 10:00 03/28/18 10:16 Zoloft - PO 75 mg DAILY [facility] Administration Solifenacin 5 mg 03/26/18 10:00 03/28/18 10:15 Vesicare - PO 5 mg DAILY [facility] Administration Zolpidem Tartrate 5 mg 03/26/18 22:00 03/27/18 21:18 Ambien - PO 5 mg HS PRN Administration INSOMNIA ASSESSMENT AND PLAN: 72 year old female with Hx of Lupus, HTN, HLD, prior Pancreatitis s/p Surgery presents with abdominal pain and diarrhea found to have localized ileus with potential enteritis on CT scan. 1) Acute Enteritis with localized ileus, improving. Afebrile/Hemodynamically Stable. Moving bowels. Tolerating diet. Cdiff negative. GI rec Loperamide prn for further diarrhea. Will discontinue Abx. Out-patient follow-up with her nutrition internship Dr. Craig Heath and biliary endoscopist Dr. Marium Calderon recommended by GI 2) Hx Lupus - Continue Plaquenil and Prednisone. 3. HTN - Continue Norvasc 4. Depression/Anxiety - Continue Cymbalta, Zoloft, Clonazepam 5. HLD - Continue Lopid 6. Overactive Bladder - continue Vesicare. 7. Hypothyrosidism - Continue Synthroid. DVT Px - Continue Lovenox
[2018-03-28] MEDS: ZOLPIDEM TARTRATE 5 MG TABLET PO PRN (22:04)
[2018-03-28] MEDS: GABAPENTIN 100 MG CAPSULE (FP) PO SCH (22:04)
[2018-03-29] MEDS: CALCIUM 500MG/VIT-D 200 UNITS COMBO TABLET (FP) PO SCH ×2 (06:08→13:38)
[2018-03-29] MEDS: LEVOTHYROXINE NA 88 MCG TABLET (FP) PO SCH (06:08)
[2018-03-29] MEDS: GEMFIBROZIL 600 MG TABLET (FP) PO SCH ×2 (06:09→16:48)
[2018-03-29] MEDS: clonazePAM 0.5 MG TABLET PO SCH ×2 (06:10→13:38)
[2018-03-29 08:28] LABS: HEMATOCRIT 31.5 % (32.4-45.2); HEMOGLOBIN 11.1 GM/dL (10.7-15.3); MCH 32.1 pg (25.7-33.7); MCHC 35.1 g/dl (32.0-36.0); MEAN CELL VOLUME 91.2 fl (80-96); MEAN PLT VOLUME 7.6 fl (7.5-11.1); PLATELET COUNT 254 K/MM3 (134-434); RBC 3.46 M/mm3 (3.60-5.2); RDW 13.2 % (11.6-15.6); WHITE BLOOD COUNT 8.1 K/mm3 (4.0-10.0)
[2018-03-29 08:38] VITALS: BP 149/76; PULSE 63; TEMP 98.2
[2018-03-29 08:55] LABS: ANION GAP 8 MMOL/L (8-16); BLOOD UREA NITROGEN 19 mg/dL (7-18); CALCIUM 8.7 mg/dL (8.5-10.1); CHLORIDE 111 mmol/L (98-107); CO2 24 mmol/L (21-32); CREATININE 0.5 mg/dL (0.55-1.3); GLUCOSE,RANDOM 151 mg/dL (74-106); POTASSIUM 3.6 mmol/L (3.5-5.1); SODIUM 142 mmol/L (136-145)
[2018-03-29] MEDS: amLODIPine BESYLATE 5 MG TABLET (FP) PO SCH (09:24)
[2018-03-29] MEDS: MULTIVITAMINS (DAILY MVI) TABLET (FP) PO SCH (09:24)
[2018-03-29] MEDS: LORATADINE 10 MG TABLET PO SCH (09:24)
[2018-03-29] MEDS: DULoxetine HCL 30 MG CAPSULE.DR (FP) PO SCH (09:24)
[2018-03-29] MEDS: SOLIFENACIN SUCCINATE 5 MG TAB (FP) PO SCH (09:24)
[2018-03-29] MEDS: SERTRALINE HCL 25 MG TABLET (FP) PO SCH (09:24)
[2018-03-29] MEDS: predniSONE 10 MG TABLET (UD) PO SCH (09:24)
[2018-03-29] MEDS: ACETAMINOPHEN 325 MG TABLET (FP) PO PRN ×2 (09:25→15:19)
[2018-03-29] MEDS: METOPROLOL TARTRATE 25 MG TABLET (FP) PO SCH (09:25)
[2018-03-29] MEDS: oxyCODONE HCL 5 MG TABLET PO PRN ×2 (09:25→15:19)
[2018-03-29] MEDS: FERROUS GLUCONATE 324 MG TAB (FP) PO SCH (09:26)
[2018-03-29] MEDS: ASCORBIC ACID 250 MG TABLET (FP) PO SCH (09:27)
[2018-03-29] MEDS: HYDROXYCHLOROQUINE SO4 200 MG TABLET (FP) PO SCH (09:27)
[2018-03-29] MEDS: ENOXAPARIN NA (PORCINE) 40 MG/0.4 ML DISP.SYRIN SQ SCH (09:36)
[2018-03-29] MEDS ORDERED: LOPERAMIDE HCL 2 MG CAPSULE PO PRN (11:27)
[2018-03-29] MEDS ORDERED: LOPERAMIDE HCL 2 MG CAPSULE PO ONE (11:27)
[2018-03-29] MEDS ORDERED: IBUPROFEN 400 MG TABLET (FP) PO PRN (12:34)
--- NOTE | 2018-03-29 14:07 | PN ---
GI Progress Note Subjective: Laying in bed states having loose BM this morning No diarrhea reported by nurse - Objective Vital Signs: Vital Signs Temperature 98.2 F 03/29/18 08:38 Pulse Rate 63 03/29/18 08:38 Respiratory Rate 20 03/29/18 08:38 Blood Pressure 149/76 03/29/18 08:38 O2 Sat by Pulse Oximetry (%) 98 03/28/18 21:00 Constitutional: Calm Eyes: No: Sclera Icterus Cardiovascular: Yes: Regular Rate and Rhythm Respiratory: Yes: CTA Bilaterally Gastrointestinal Inspection: No: Distention ...Auscultate: Yes: Normoactive Bowel Sounds ...Palpate: No: Hepatomegaly, Splenomegaly, Tenderness ...Percussion: No: Tympanitic Neurological: Yes: Alert Labs: CBC, BMP 03/29/18 07:10 03/29/18 07:10 Problem List - Problems (1) Diarrhea Assessment/Plan: No copius diarreha reported and C. Diff negative Diet as tolerated Stool for O&P, culture when feasible Continued outpatient care will be needed. I explained this to Ms. Stafford In mbalta, loperamide, percocet and iron supplement. Will likely need bowel regimen to avoid constipation Code(s): R19.7 - DIARRHEA, UNSPECIFIED
--- NOTE | 2018-03-29 15:32 | DS ---
Physical Exam: SUBJECTIVE: Patient seen and examined this AM. She states she is still having some diarrhea one hour following meals. She is requesting an EGD Colonoscopy prior to discharge. Discussed in depth with patient that she should follow up as outpatient as GI did not recommend any further inpatient workup. OBJECTIVE: Vital Signs Period Temp Pulse Resp BP Sys/Beckman Pulse Ox Last 24 Hr 98 F-98.7 F 55-71 18-20 113-149/70-83 98-98 PHYSICAL EXAM GENERAL: A&O, no acute distress HEAD: Normocephalic, atraumatic. EYES: PERRL, no scleral icterus EARS, NOSE, THROAT: oropharynx clear without exudates. Moist mucous membranes. NECK: supple without lymphadenopathy LUNGS: CTA b/l, no crackles or wheezes HEART: Regular rate and rhythm, normal S1 and S2 without murmur ABDOMEN: Soft, mildly tender to palpation in LLQ, normoactive to hyperactive bowel sounds MUSCULOSKELETAL: No bony deformities or tenderness. EXTREMITIES: warm, well-perfused. No peripheral edema. NEUROLOGICAL: Cranial nerves II-XII grossly intact. Normal speech. SKIN: Warm, dry, no rashes. LABS Laboratory Results - last 24 hr 03/27/18 03/29/18 03/29/18 07:00 07:10 07:10 WBC 8.1 RBC 3.46 L Hgb 11.1 Hct 31.5 L MCV 91.2 MCH 32.1 MCHC 35.1 RDW 13.2 Plt Count 254 MPV 7.6 Sodium 142 Potassium 3.6 Chloride 111 H Carbon Dioxide 24 Anion Gap 8 BUN 19 H Creatinine 0.5 L Creat Clearance w eGFR > 60 Random Glucose 151 H Calcium 8.7 Double Strand DNA Ab 1 HOSPITAL COURSE: Date of Admission:03/25/18 Date of Discharge: 03/29/18 HPI on Admission: 72 yo female with PMH of Lupus, diverticulosis, HLD, past pancreatitis requiring stent placement, hemorrhoids admitted with complaint of worsening foul smelling diarrhea with LLQ abdominal pain. She says that the diarrhea has been happening since her pancreatic stent was removed in June of 2017 and has been progressively worsening. She said at first it was with certain foods ( mentions cheeseburgers) though she states that recently it has been with most all food. She states that she has required diapers due to decreased ability to control her bowels until she can get to the bathroom. She describes the diarrhea as foul smelling with small red and black things "with a tail that look like sperm." Of note she endorses numerous bug bites but states that she only gets them at night and that she thinks they are coming from her heating system. She endorses that she believes the bug bites and the diarrhea may be related. She had a GI appointment earlier today, however was unable to make it due to her diarrhea. She denies any fevers (though states she never has fevers for anything), but does endorse some recent chills. Hospital Course: She was initially treated with abx though C.dif and stool studies were all negative. She was seen by GI who recommended no further inpatient evaluation but recommended follow up as outpatient for further management and possible colonoscopy as pt has family history of colon CA in her mother. She was given loperamide for her diarrhea. Of note she was found to have an iron deficiency anemia and was started on Ferrous Gluconate. Medically safe for discharge at this time to return to her assisted living facility. Minutes to complete discharge: 35 Discharge Summary Reason For Visit: DIARRHEA ENTERITIS ILEUS Current Active Problems Diarrhea (Acute) Enteritis (Acute) Ileus (Acute) Condition: Stable - Instructions Diet, Activity, Other Instructions: You were admitted with diarrhea. You were initially treated with antibiotics however all of your stool samples and studies were negative for any infectious cause. It is likely your diarrhea is chronically due to your pancreas issues. You were seen by a GI specialist who recommended no further inpatient testing or management but recommended that you follow up as an outpatient for further testing and a possible colonoscopy. You were found to be anemic likely due to low iron levels so you were started on an iron supplement. You were also given a medication for your diarrhea called loperamide (immodium) which you can take every 8 hours. You should follow up with your primary doctor within one week of discharge from the hospital. You should follow up with a GI doctor as an outpatient. Dr. Heath' information has been included as well as the GI doctor who saw you here in the hospital. If you have any high fevers, bloody diarrhea or any further concerning symptoms , you should be seen by your doctor or return to the emergency department. Referrals: Loc Cano DO [Staff Physician] - Craig Heath MD [Non Staff, Medical] - Disposition: HOME - Home Medications Comprehensive Discharge Medication List: Ambulatory Orders Calcium Carbonate/Vitamin D3 [Oyster Shell 500-Vit D3 200 Tb] 1 each PO TID Gemfibrozil [Lopid -] 600 mg PO BID 07/10/16 Hydrocodone/Acetaminophen [Rose 10-325 Tablet] 1 each PO BID 07/10/16 Hydroxychloroquine So4 [Plaquenil -] 200 mg PO BID 07/10/16 Lactase [Dairy Relief] 3,000 unit PO TID 07/10/16 Linagliptin [Tradjenta] 5 mg PO DAILY 07/10/16 Magnesium Oxide [Mag-Ox -] 400 mg PO BID 07/10/16 Metoprolol Tartrate [Lopressor -] 37.5 mg PO BID 07/10/16 Multivitamin [Poly-Vitamin] 1 each PO DAILY 07/10/16 Sertraline HCl [Zoloft] 75 mg PO DAILY 07/10/16 Sodium Fluoride [Prevident (Nf)] 60 gm DT BID 07/10/16 Tobramycin/Dexamethasone [Tobradex Eye Drops] 1 drop OU TID 07/10/16 Zolpidem Tartrate [Ambien] 10 mg PO HS 07/10/16 clonazePAM [KlonoPIN] 0.5 mg PO TID 07/10/16 metFORMIN HCL [Metformin ER Osmotic] 1,000 mg PO BID 07/10/16 predniSONE [Deltasone -] 10 mg PO DAILY 07/10/16 Amlodipine Besylate [Norvasc -] 5 mg PO DAILY 03/25/18 Ascorbic Acid [Vitamin C -] 250 mg PO DAILY 03/25/18 Dextroamphetamine/Amphetamine [Adderall Xr 20 mg Capsule] 1 tab PO TID 03/25/18 Duloxetine HCl [Cymbalta -] 60 mg PO DAILY 03/25/18 Ergocalciferol (Vitamin D2) [Vitamin D2] 50,000 unit PO WEEKLY 03/25/18 Gabapentin [Neurontin -] 100 mg PO HS 03/25/18 Levothyroxine [Synthroid -] 88 mcg PO DAILY 03/25/18 Loratadine [Claritin -] 10 mg PO DAILY 03/25/18 Oxybutynin Chloride [Oxybutynin Chloride ER] 5 mg PO DAILY 03/25/18 Tobramycin/Dexamethasone [Tobradex Eye Drops] 5 ml OP ASDIR 03/25/18 Ferrous Gluconate [Ferate] 324 mg PO DAILY #90 tablet 03/29/18 Loperamide HCl [Imodium -] 2 mg PO Q8H PRN #270 capsule 03/29/18 This patient is new to me today: No Emergency Visit: Yes ED Registration Date: 03/25/18 Care time: The patient presented to the Emergency Department on the above date and was hospitalized for further evaluation of their emergent condition. Critical Care patient: No - Discharge Referral Referred to [facility] No
--- NOTE | 2018-03-29 15:50 | PN ---
Teaching Attending Note Name of Resident: Willian Coffey ATTENDING PHYSICIAN STATEMENT I saw and evaluated the patient. I reviewed the resident's note and discussed the case with the resident. I agree with the resident's findings and plan as documented. SUBJECTIVE: Complains of loose stool overnight with mucus - not corroborated by nursing and no sample produced on rounds today. No melena/hematochezia. No nausea/vomiting. OBJECTIVE: Afebrile/Hemodynamically Stable. Last Vital Signs Temp Pulse Resp BP Pulse Ox 98.2 F 63 20 149/76 98 03/29/18 08:38 03/29/18 08:38 03/29/18 08:38 03/29/18 08:38 03/29/18 09:00 HEENT - Atraumatic, Normocephalic. Heart - S1, S2, RRR L:ungs - clear to auscultation. Abdomen - mild tenderness on deep palpation Left inguinal region. No hernias. No guarding or rebound Extremities - no edema, no calf tenderness. Laboratory Results - last 24 hr 03/27/18 03/29/18 03/29/18 07:00 07:10 07:10 WBC 8.1 RBC 3.46 L Hgb 11.1 Hct 31.5 L MCV 91.2 MCH 32.1 MCHC 35.1 RDW 13.2 Plt Count 254 MPV 7.6 Sodium 142 Potassium 3.6 Chloride 111 H Carbon Dioxide 24 Anion Gap 8 BUN 19 H Creatinine 0.5 L Creat Clearance w eGFR > 60 Random Glucose 151 H Calcium 8.7 Double Strand DNA Ab 1 Current Medications Generic Name Dose Route Start Last Admin Trade Name Freq PRN Reason Stop Dose Admin Acetaminophen 325 mg 03/26/18 11:08 03/29/18 15:19 Tylenol - PO 325 mg Q6H PRN Administration PAIN LEVEL 6-10 Amlodipine Besylate 5 mg 03/26/18 10:00 03/29/18 09:24 Norvasc - PO 5 mg DAILY YAW Administration Ascorbic Acid 250 mg 03/26/18 10:00 03/29/18 09:27 Vitamin C - PO 250 mg DAILY YAW Administration Calcium Carbonate/Cholecalciferol 1 tab 03/26/18 06:00 03/29/18 13:38 Os-Jason 500+D - PO 1 tab TID YAW Administration Clonazepam 0.5 mg 03/26/18 06:00 03/29/18 13:38 Klonopin - PO 0.5 mg TID [facility] Administration Duloxetine HCl 60 mg 03/26/18 10:00 03/29/18 09:24 Cymbalta - PO 60 mg DAILY [facility] Administration Enoxaparin Sodium 40 mg 03/26/18 10:00 03/29/18 09:36 Lovenox - SQ Not Given DAILY [facility] Ergocalciferol 50,000 unit 03/28/18 10:00 03/28/18 10:16 Drisdol - PO 50,000 unit Mo@1000 [facility] Administration Ferrous Gluconate 324 mg 03/26/18 10:00 03/29/18 09:26 Fergon - PO 324 mg DAILY [facility] Administration Gabapentin 100 mg 03/26/18 22:00 03/28/18 22:04 Neurontin - PO 100 mg HS [facility] Administration Gemfibrozil 600 mg 03/26/18 07:00 03/29/18 06:09 Lopid - PO 600 mg BIDAC [facility] Administration Hydroxychloroquine Sulfate 200 mg 03/26/18 10:00 03/29/18 09:27 Plaquenil - PO 200 mg BID YAW Administration Ibuprofen 400 mg 03/29/18 12:34 03/29/18 13:51 Motrin - PO 400 mg Q6H PRN Administration FEVER Levothyroxine Sodium 88 mcg 03/26/18 07:00 03/29/18 06:08 Synthroid - PO 88 mcg DAILY@0700 [facility] Administration Loperamide HCl 2 mg 03/29/18 11:27 Imodium - PO Q8H PRN DIARRHEA Loratadine 10 mg 03/26/18 10:00 03/29/18 09:24 Claritin - PO 10 mg DAILY [facility] Administration Metoprolol Tartrate 37.5 mg 03/26/18 10:00 03/29/18 09:25 Lopressor - PO 37.5 mg BID [facility] Administration Multivitamins/Minerals/Vitamin C 1 tab 03/26/18 10:00 03/29/18 09:24 Tab-A-Vit - PO 1 tab DAILY [facility] Administration Oxycodone HCl 5 mg 03/26/18 11:09 03/29/18 15:19 Roxicodone - PO 5 mg Q6H PRN Administration PAIN LEVEL 6-10 Prednisone 10 mg 03/26/18 10:00 03/29/18 09:24 Deltasone - PO 10 mg DAILY YAW Administration Sertraline HCl 75 mg 03/26/18 10:00 03/29/18 09:24 Zoloft - PO 75 mg DAILY YAW Administration Solifenacin 5 mg 03/26/18 10:00 03/29/18 09:24 Vesicare - PO 5 mg DAILY YAW Administration Zolpidem Tartrate 5 mg 03/26/18 22:00 03/28/18 22:04 Ambien - PO 5 mg HS PRN Administration INSOMNIA ASSESSMENT AND PLAN: 72 year old female with Hx of Lupus, HTN, HLD, prior Pancreatitis s/p Surgery presents with abdominal pain and diarrhea found to have localized ileus with potential enteritis on CT scan. 1) Acute Enteritis with localized ileus, improved Afebrile/Hemodynamically Stable. Moving bowels. Tolerating diet. Cdiff negative. GI rec Loperamide prn for further diarrhea. Abx discontinued. Patient does not want to follow up with her auto repair technician Dr. Craig Heath and biliary endoscopist Dr. Marium Calderon. Will give GI out-patient appt for Dr. Cano for further investigation. 2) Hx Lupus - Continue Plaquenil and Prednisone. 3. HTN - Continue Norvasc 4. Depression/Anxiety - Continue Cymbalta, Zoloft, Clonazepam 5. HLD - Continue Lopid 6. Overactive Bladder - continue Vesicare. 7. Hypothyrosidism - Continue Synthroid. Medically Stable for discharge on Loperamide prn and GI follow up.
[2018-03-29 16:27] LABS: COMPLEMENT TOTAL(CH50) 58 U/mL (>41)
== END 2018-03-29 16:50 | disposition home or self-care (01) | DRG 389 ==
LOC: JER 16:06 → JERBED 20:55 → J6S 03-26 10:13
PROVIDERS: ADMIT Internal Medicine
DX: K56.7 Ileus, unspecified (principal); K62.5 Hemorrhage of anus and rectum; K52.9 Noninfective gastroenteritis and colitis, unspecified; M32.9 Systemic lupus erythematosus, unspecified; I10 Essential (primary) hypertension; D50.9 Iron deficiency anemia, unspecified; E78.5 Hyperlipidemia, unspecified; F41.8 Other specified anxiety disorders; N32.81 Overactive bladder; E03.9 Hypothyroidism, unspecified; E11.65 Type 2 diabetes mellitus with hyperglycemia
CPT/HCPCS: 36415; 74018-TC-FY; 74177-TC; 80048; 80053; 81003; 81015; 82272; 83605; 83690; 83735; 84100; 85025; 85027; 85651; 86038; 86140; 86162; 86225; 87205; 87324; 87449; 97116-GP; 97161-GP; 99285-25; J0131

== ENCOUNTER 2019-01-30 14:34 | Emergency (ER) | payer OTHER ==
[2019-01-30 15:33] VITALS: BMI 25.7
--- NOTE | 2019-01-30 15:40 | PDOC ---
History of Present Illness - General Chief Complaint: Sore Throat Stated Complaint: Neck problem Time Seen by Provider: 01/30/19 15:39 Past History - Past Medical History Allergies/Adverse Reactions: Allergies Allergy/AdvReac Type Severity Reaction Status Date / Time cat dander Allergy Verified 01/30/19 15:32 lactose Allergy Verified 01/30/19 15:32 No Known Drug Allergies Allergy Verified 01/30/19 15:32 Home Medications: Ambulatory Orders Calcium Carbonate/Vitamin D3 [Oyster Shell 500-Vit D3 200 Tb] 1 each PO TID Gemfibrozil [Lopid -] 600 mg PO BID 07/10/16 Hydrocodone/Acetaminophen [[place] 10-325 Tablet] 1 each PO BID 07/10/16 Hydroxychloroquine So4 [Plaquenil -] 200 mg PO BID 07/10/16 Lactase [Dairy Relief] 3,000 unit PO TID 07/10/16 Linagliptin [Tradjenta] 5 mg PO DAILY 07/10/16 Magnesium Oxide [Mag-Ox -] 400 mg PO BID 07/10/16 Metoprolol Tartrate [Lopressor -] 37.5 mg PO BID 07/10/16 Multivitamin [Poly-Vitamin] 1 each PO DAILY 07/10/16 Sertraline HCl [Zoloft] 75 mg PO DAILY 07/10/16 Sodium Fluoride [Prevident (Nf)] 60 gm DT BID 07/10/16 Tobramycin/Dexamethasone [Tobradex Eye Drops] 1 drop OU TID 07/10/16 Zolpidem Tartrate [Ambien] 10 mg PO HS 07/10/16 clonazePAM [KlonoPIN] 0.5 mg PO TID 07/10/16 metFORMIN HCL [Metformin ER Osmotic] 1,000 mg PO BID 07/10/16 predniSONE [Deltasone -] 10 mg PO DAILY 07/10/16 Amlodipine Besylate [Norvasc -] 5 mg PO DAILY 03/25/18 Ascorbic Acid [Vitamin C -] 250 mg PO DAILY 03/25/18 Dextroamphetamine/Amphetamine [Adderall Xr 20 mg Capsule] 1 tab PO TID 03/25/18 Duloxetine HCl [Cymbalta -] 60 mg PO DAILY 03/25/18 Ergocalciferol (Vitamin D2) [Vitamin D2] 50,000 unit PO WEEKLY 03/25/18 Gabapentin [Neurontin -] 100 mg PO HS 03/25/18 Levothyroxine [Synthroid -] 88 mcg PO DAILY 03/25/18 Loratadine [Claritin -] 10 mg PO DAILY 03/25/18 Oxybutynin Chloride [Oxybutynin Chloride ER] 5 mg PO DAILY 03/25/18 Tobramycin/Dexamethasone [Tobradex Eye Drops] 5 ml OP ASDIR 03/25/18 Ferrous Gluconate [Ferate] 324 mg PO DAILY #90 tablet 03/29/18 Loperamide HCl [Imodium -] 2 mg PO Q8H PRN #270 capsule 03/29/18 Miscellaneous Medical Supply [Outpatient Order] 1 each ASDIR #1 misc Sulfamethoxazole/Trimethoprim [Bactrim Ds -] 1 tab PO BID 10 Days #20 tablet COPD: No CHF: No Hypercholesterolemia: Yes (ELEVATED TRIGLYCERIDES) Psychiatric Problems: Yes (major depression with psychotic features, anxiety, personality disorder) Thyroid Disease: Yes (HYPO) - Surgical History Abdominal Surgery: Yes Cholecystectomy: Yes - Immunization History Td Vaccination: Yes Immunization Up to Date: Yes - Psycho Social/Smoking Cessation Hx Smoking Status: No Smoking History: Unknown if ever smoked Years of Tobacco Use: 0 Have you smoked in the past 12 months: No Number of Cigarettes Smoked Daily: 0 Cigars Per Day: 0 Information on smoking cessation initiated: No Hx Alcohol Use: No Drug/Substance Use Hx: No Substance Use Type: None *Physical Exam - Vital Signs Last Vital Signs Temp Pulse Resp BP Pulse Ox 98.0 F 105 H 18 157/96 97 01/30/19 14:40 01/30/19 14:40 01/30/19 14:40 01/30/19 14:40 01/30/19 14:40 ED Treatment Course - LABORATORY CBC & Chemistry Diagram: 01/30/19 17:30 01/30/19 17:30 Medical Decision Making - Medical Decision Making 01/30/19 17:45 HPI: 73yo F hx lupus, HTN, DM, diverticulosis, HLD, prior pancreatitis s/p stent placement, MDD, anxiety, hypothyroidism, overactive bladder, and osteoporosis, taking multiple medications including Clonazepam, Adderall, Hydroxychloroquine, Levothyroxine, Prednisone, Sertraline, and Zolpidem BIBA from [facility] c/o "insect bites" to body x2 years. States small triangle-shaped insects of different colours (red, black , green) fly out of the heaters only at night and bite her all over her body. Pt points to scabs and various skin lynch (eg lentigos) on body and states those are the bites. Denies itchiness but is scratching them. Endorses "stinging " constant pain to bites, especially ones on scalp. Points to the red scabs on scalp and states those are large red insects. Pt has "samples" in plastic bags, including a headband and scotch tape. Points to what appears to be dirt and lint and skin/dandruff and states those are the insects, now. States the facility is dirty and this has been happening for 2 years. States the staff only come to look for the insects in the day but they are nocturnal and only happen at night so that's why they never see them. States exterminators have come but only spray corners/zarate of room and doesn't get rid of these. States that bites have been causing bleeding from mouth and nose and ears. Has q-tips with her with small amounts of blood on them from sticking them up nose. Also c/ o neck looking like "pelican" since yesterday but normally has nice jaw line, even with 2 nodes in thyroid. Denies fever, chills, fatigue, headache, dizziness , numbness/tingling, weakness, vision changes, shortness of breath, cough, chest pain, palpitations, leg swelling, abdominal pain, blood in stool, diarrhea , constipation, nausea, vomiting, dysuria, hematuria, confusion, SI, HI, AVH. PCP - Cedrick Medrano Psych - María Restrepo ROS: Constitutional: Negative for chills, fever, fatigue, diaphoresis. HENT: Positive for "insect bites" on scalp, in mouth, in nose, and in ears. Positive for "nosebleed" from "insect bites". Negative for sore throat, rhinorrhea, congestion. Eyes: Negative for visual disturbance. Respiratory: Negative for shortness of breath, cough, and wheezing. Cardiovascular: Negative for chest pain, palpitations, and leg swelling. Gastrointestinal: Negative for abdominal pain, blood in stool, constipation, diarrhea, nausea, and vomiting. Genitourinary: Negative for dysuria, flank pain, and hematuria. Musculoskeletal: Negative for myalgias, back pain, and neck pain. Skin: Positive for "insect bites" diffusely throughout bodies. Negative for rash. Neurological: Negative for light-headedness, dizziness, vertigo, syncope, weakness, numbness and headaches. Psychiatric/Behavioral: Negative for confusion. PE: Gen: Alert, NAD, comfortable-appearing, tears from eyes HEENT: PERRL, EOMI, MMM, NCAT. No conjunctival pallor. Sclera are non-icteric. Oropharynx is clear without erythema or exudates. Nostrils clear without blood or abnormalities. Ears and canals normal. CV: Regular rate and rhythm. No murmurs, rubs, or gallops. PULM: No resp distress. CTAB, no wheezes, rales, or rhonchi. ABD: soft, NT/ND, no rebound tenderness or guarding, no CVA tenderness. BACK: No TTP of c/t/l-spine. No step-offs or deformities. MSK: No bony deformities. 2+ pulses in all extremities. NEURO: AAOx3. PERRL. CN 2-12 intact. 5/5 strength in all extremities. Sensation to light touch intact in all extremities. Slow but otherwise normal gait. EXTREMITIES: No cyanosis. No clubbing. No edema. No calf tenderness. PSYCH: Anxious mood, labile affect, perseverating that all skin lynch/scabs/ ephelides/lentigos are bug bites, scratching at "bites", denies SI/HI/AVH SKIN: Warm and dry. Normal capillary refill. No rashes. No jaundice. Diffuse small scabs, ephelides, and lentigos throughout body. 3 scabs on top of scalp. MDM: 73yo F hx lupus, HTN, DM, diverticulosis, HLD, prior pancreatitis s/p stent placement, MDD, anxiety, hypothyroidism, overactive bladder, and osteoporosis, taking multiple medications including Clonazepam, Adderall, Hydroxychloroquine, Levothyroxine, Prednisone, Sertraline, and Zolpidem DANTE from [facility] with "insect bites" to body x2 years. Tachycardic to 105, drops to WNL when calms down, otherwise VSS, afebrile, neurologically intact; small scabs, ephelides, and lentigos throughout body; no e/o bites, no bleeding from nose or any other locations, ears/nose/throat benign ; anxious mood, labile affect, scratching at lynch on skin and scabs and denying that scratching; denies SI/HI/AVH. Pt samples on tape and headband taken to microbiology lab and reviewed by myself and clinical genetics laboratory chief under microscope. Only skin cells, debris/dirt, and hair seen. No e/o insects or moving foreign bodies seen. No e/o insect bites or concerning emergent skin lesions. Perseverations ( hallucinations?) most consistent with psychiatric pathology - obtain additional hx from psychiatrist. Also consider organic etiology including UTI/infectious etiology, anemia, thyroid pathology, intoxication, or metabolic derangements. No trauma or neurologic deficits concerning for neurologic pathology, but r/o ICH with CTH. Low concern for cardiac pathology such as ACS/CO or arrythmia due to lack of CP, SOB, or palpitations - r/o with EKG and trop. Consider medication AE due to use of multiple medications with neuropsychiatric effects including adderall, benzos, and prednisone. -EKG -CTH -CBC,CMP,Mg,Phos,Trop,TSH,HCG,UA/UC/UDS,Ethanol,Salicylates,Acetaminophen -IVF -Pain management: tylenol -Call pt's psychiatrist Dr. María Restrepo at [phone] (mobile) for baseline, hx, and recs -Dispo: pending w/u and psych recs Labs reviewed. Of note, TSH 0.34 (L). Due to TSH, add free T4, free T3, and thyrotropin receptor antibodies. Reviewed. Free T4 0.71 (L) EKG reviewed: sinus tachycardia, 115bpm, QTc 489ms, normal axis, no TWIs, no ST elevations or depressions CTH reviewed: no evidence of acute intracranial pathology. Hypodense changes within periventricular white matter consistent with chronic, small vessel ischemia. Mild degree of diffuse cerebral atrophy with sulcal widening and ventricular dilatation. Spoke with Dr. Restrepo, pt's psychiatrist, states pt never had psychotic episode or this complaint before that she's aware of so possibly decompensating , does state that pt is needy and plays games. Will call back when can access her records. 01/30/19 16:[address] Restrepo again, she is calling [facility] for further collateral, will call me back. 01/30/19 19:[address] Restrepo again, requested call back in 15 minutes. Pt informed of results. Pt refuses to believe that skin findings are not insect bites. Threatens to get strapping machine operator for "incorrect diagnosis" of her "insect bites." Wants use to take the "insects" off of her. Picks at scalp scabs and shows the scab and skin to me, saying it is insects. 01/30/19 20:[address] Restrepo - states pt was sent from facility for c/o sore throat xfew days, unaware of bug/insect complaint. States pt was otherwise in [facility]. Discussed current presentation and w/u. Dr. Restrepo states pt is often malingering and manipulative, med-seeking for meds such as valium and psychotropes, takes adderall even though doesn't need it medically, often angry and believes nothing being done right, likes attention. Has dx of borderline personality disorder. If medically clear and no concern for harm to self and others, recommends d/c back to facility and Dr Restrepo will see her tomorrow. No concerning findings or e/o organic cause of perseverating/psychosis. Pt takes multiple medications with neuropsychiatric effects and has known psychiatric problems that could be contributing. Pt does not endorse SI/HI and clinically appears to pose no threat to self or others at this time. Ambulates without difficulty. Alert and oriented x3. Safe for discharge to facility with close psychiatric f/u. Pending urine, will d/c to facility w/psychiatrist f/u tomorrow. Recommend review of medications due to multiple medications with neuropsychiatric effects. 01/30/19 21:53 UA: e/o UTI, bacteria >9000, will start bactrim here and dc with rx. No systemic s/s or labs consistent with systemic infection requiring IV abx. Called [facility] - informed of plan for abx and return home tonight. Nurse informed and transport being arranged. Pt requests nightly dose of gabapentin 100mg (daily 8pm) - ordered. Will dc home with PCP and psych f/u and f/u thyroid studies. Return precautions given. Pt understands all dc instructions and all questions were answered. Discharge - Discharge Information Problems reviewed: Yes Clinical Impression/Diagnosis: UTI (urinary tract infection) Condition: Stable Disposition: LONGTERM FACILITY - Admission No - Additional Discharge Information Prescriptions: Sulfamethoxazole/Trimethoprim [Bactrim Ds -] 1 tab PO BID 10 Days #20 tablet - Follow up/Referral Referrals: Cedrick Medrano MD [Primary Care Provider] - CallBack Reminder: Follow-up thyroid labs - Patient Discharge Instructions Patient Printed Discharge Instructions: DI for Urinary Tract Infection (UTI) Additional Instructions: You have been seen in the Emergency Department for your skin lesions. Evaluation of your samples with a microscope shows no insects. Your EKG, CT scan of your head, labs, and physical exam show no signs concerning for an emergent condition. Your urine does show that you have a UTI (urinary tract infection) that could be causing your symptoms. We have sent a prescription for an antibiotic to your pharmacy - take as prescribed and make sure you finish the course. We spoke with your doctor Dr. Restrepo and she will come see you tomorrow at your facility. Also follow-up with your primary care doctor within 1 week. Your initial thyroid labs were abnormal. We sent additional labs that will result in a few days. Make sure you tell your doctor so he can follow up on these results. You are also taking many medications with multiple side effects and one of those medications could be contributing to your current symptoms. Make sure you discuss your medications with your doctors so that you are only taking medications that are necessary. Return to the ED immediately if you experience fever, vomiting, chest pain, difficulty breathing, dizziness, or any other new or worsening symptom. - Post Discharge Activity
[2019-01-30] MEDS ORDERED: ACETAMINOPHEN 500 MG TABLET (FP) PO ONE (17:48)
[2019-01-30] MEDS ORDERED: SODIUM CHLORIDE 0.9% 500 ML INFUS.BAG IV ONE (17:48)
[2019-01-30 18:02] LABS: BASO % 0.7 % (0-2.0); EOS % 7.1 % (0-4.5); HEMATOCRIT 36.1 % (32.4-45.2); LYMPH % 17.6 % (8-40); MCH 31.5 pg (25.7-33.7); MCHC 33.3 g/dl (32.0-36.0); MEAN CELL VOLUME 94.6 fl (80-96); MEAN PLT VOLUME 7.9 fl (7.5-11.1); MONO % 8.1 % (3.8-10.2); NEUT % 66.5 % (42.8-82.8); PLATELET COUNT 375 K/MM3 (134-434); RBC 3.82 M/mm3 (3.60-5.2); WHITE BLOOD COUNT 8.7 K/mm3 (4.0-10.0)
[2019-01-30 18:15] LABS: INR 0.99 (0.83-1.09); PROTHROMBIN TIME (PATIENT) 11.7 SEC (9.7-13.0)
[2019-01-30] MEDS ORDERED: ACETAMINOPHEN 325 MG TABLET (FP) ONE (18:15)
[2019-01-30 18:25] LABS: MAGNESIUM 2.4 mg/dL (1.8-2.4); PHOSPHOROUS 2.4 mg/dL (2.5-4.9)
[2019-01-30 18:28] LABS: ALBUMIN 4.1 g/dl (3.4-5.0); ALK PHOS 64 U/L (45-117); ANION GAP 8 MMOL/L (8-16); BILIRUBIN,TOTAL 0.2 mg/dL (0.2-1); BLOOD UREA NITROGEN 18.6 mg/dL (7-18); CALCIUM 9.7 mg/dL (8.5-10.1); CHLORIDE 108 mmol/L (98-107); CO2 24 mmol/L (21-32); CREATININE 0.7 mg/dL (0.55-1.3); GLUCOSE,RANDOM 177 mg/dL (74-106); POTASSIUM 3.8 mmol/L (3.5-5.1); SGOT/AST 13 U/L (15-37); SGPT/ALT 14 U/L (13-61); SODIUM 140 mmol/L (136-145); TOT PROT 7.3 g/dl (6.4-8.2)
--- NOTE | 2019-01-30 19:12 | PDOC ---
Attending Attestation - Resident Resident Name: Kayli Agrawal - ED Attending Attestation I have performed the following: I have examined & evaluated the patient, The case was reviewed & discussed with the resident, I agree w/resident's findings & plan, Exceptions are as noted - HPI HPI: 01/30/19 19:12 73-year-old female brought in by ambulance from [facility] with complaint of ""bugs in her mouth and throat" HPI she states that there are bugs coming out of heating system in the vents at her facility. She states that they are causing bumps on her scalp and she is itching her scalp 01/30/19 19:59 - Physicial Exam PE: 01/30/19 20:39 head 3 scabs on her scalp,no masses ,no abscesses skin no vesicles,no impetigo,no abscesses, some scattered excoriations neuro alert and conversant,ambulatory psych perseverances about bugs coming thru her heating system and biting her , bug bites appreciated - Medical Decision Making 01/30/19 20:43 We spoke with the psychiatrist at the facility and this patient is known to her. The patient has been taking Atarax for the itching. Patient will be discharged back to her facility to be followed by her PCP and psychiatrist She has no homicidal homicidal or suicidal ideology She is alert she has no gross focal neuro deficits imp psych/perseveration of bugs on her skiin
[2019-01-30 21:36] LABS: EPI CELLS 0.9 /HPF (0-5/HPF); HYALINE CASTS 13 /lpf (0-8); URINE APPEARANCE CLOUDY; URINE BACTERIA >9000 /hpf (NEGATIVE); URINE BILIRUBIN NEGATIVE (NEGATIVE); URINE COLOR YELLOW; URINE GLUCOSE (UA) 2+ (NEGATIVE); URINE KETONE TRACE (NEGATIVE); URINE LEUK ESTERASE 1+ (NEGATIVE); URINE NITRITE NEGATIVE (NEGATIVE); URINE PROTEIN 1+ (NEGATIVE); URINE RBC 3 /hpf (0-4); URINE UROBILINOGEN 0.2 mg/dL (0.2-1.0); URINE WBC 44 /hpf (0-5)
[2019-01-30] MEDS ORDERED: SULFAMETHOXAZOLE/TRIMETHOPRIM 800MG/160MG D.S. TABLET PO ONE (21:42)
[2019-01-30 21:45] LABS: COCAINE, UR NEGATIVE ng/ml (CUTOFF=300); METHADONE, UR NEGATIVE ng/ml (CUTOFF=300); PHENCYCLIDINE,URINE NEGATIVE ng/ml (CUTOFF=25); URINE BARBITURATES NEGATIVE ng/ml (CUTOFF=200)
[2019-01-30] MEDS ORDERED: SULFAMETHOXAZOLE/TRIMETHOPRIM 800MG/160MG D.S. TABLET ONE (21:50)
[2019-01-30 21:52] LABS: OPIATES, URI POSITIVE ng/ml (CUTOFF=300); URINE AMPHETAMINES POSITIVE ng/ml (CUTOFF=500); URINE BENZODIAZEPINES POSITIVE ng/ml (CUTOFF=200)
[2019-01-30] MEDS ORDERED: GABAPENTIN 100 MG CAPSULE (FP) PO ONE (21:52)
[2019-01-30] MEDS ORDERED: GABAPENTIN 100 MG CAPSULE (FP) ONE (21:58)
[2019-01-31 01:21] VITALS: PULSE 94
[2019-01-31 06:27] VITALS: BP 133/82; TEMP 97.5
--- NOTE | 2019-01-31 10:36 | EKG ---
Test Reason : Blood Pressure : / mmHG Vent. Rate : 115 BPM Atrial Rate : 115 BPM P-R Int : 120 ms QRS Dur : 096 ms QT Int : 354 ms P-R-T Axes : 000 003 068 degrees QTc Int : 489 ms POOR DATA QUALITY, INTERPRETATION MAY BE ADVERSELY AFFECTED SINUS TACHYCARDIA OTHERWISE NORMAL ECG Confirmed by MD JACOB, MAGY ([id number]) on 01/31/2019 10:36:45 AM Referred By: Confirmed By:MAGY JAMES MD
== END 2019-01-31 02:34 ==
LOC: JER 14:34
DX: N39.0 Urinary tract infection, site not specified (principal); I10 Essential (primary) hypertension; E11.9 Type 2 diabetes mellitus without complications; Z79.84 Long term (current) use of oral hypoglycemic drugs; E03.9 Hypothyroidism, unspecified; F32.3 Major depressive disorder, single episode, severe with psychotic features; F60.9 Personality disorder, unspecified; F41.9 Anxiety disorder, unspecified; E78.00 Pure hypercholesterolemia, unspecified; M19.90 Unspecified osteoarthritis, unspecified site; K86.9 Disease of pancreas, unspecified; Z91.02 Food additives allergy status; Z91.09 Other allergy status, other than to drugs and biological substances
CPT/HCPCS: 36415; 70450-TC; 80053; 80307; 81003; 83520; 83735; 84100; 84439; 84443; 84481; 84703; 85025; 85610; 87086; 87186; 93005; 93010; 99284-25

== ENCOUNTER 2019-12-17 04:01 | Emergency (ER) | payer OTHER ==
[2019-12-17 04:31] VITALS: BMI 27.4
--- NOTE | 2019-12-17 04:31 | PDOC ---
Attending Attestation - Resident Resident Name: Sukh Nascimento - ED Attending Attestation I have performed the following: I have examined & evaluated the patient, The case was reviewed & discussed with the resident, I agree w/resident's findings & plan - HPI HPI: 12/17/19 04:28 Pt fell in the NH - Physicial Exam PE: 12/17/19 04:28 Pt comes with LS spine pain after she fell in her apt at the NH; she was hungry and she got up to eat. Fell and hit the occiput and back of her neck. No AMS heart RRR lungs CTAB abd soft NT ND no flank pain normal ext normal neuro exam Pt's exam is normal if all her imaging studies are normal, she will be discharged home. - Medical Decision Making 12/17/19 04:30 CT head Cspine L spine and pelvis XR (pt has residual left hip pain and she had a fall and injured her pelvis the last fall she had in the recent past) 12/17/19 05:06 CBC normal 12/17/19 05:31 COMP and PT/INR normal 12/17/19 05:[address] are done and if normal, she will be discharged home 12/17/19 06:59 Referring Physician: ELY GARCIA Patient Name: DAYSI TYSON THIS IS A PRELIMINARY REPORT DATE OF SERVICE: 2019-12-17 05:11:58 IMAGES: EXAM: CT cervical spine without contrast and CT lumbar spine without contrast and CT head without contrast and CT scan of the abdomen without contrast HISTORY: Patient fell COMPARISON: None. FINDINGS: CT brain: No acute intracranial abnormality. No hemorrhage. Involutional changes are noted. Osseous structures are intact. Cervical spine: Degenerative changes. Negative for cervical spine fracture or malalignment. Note made of nonspecific groundglass opacities at the lung apices. Note made of a 3.1 cm left thyroid nodule/mass. Lumbar spine: Osteopenia. Negative for lumbar spine fracture or malalignment. Degenerative changes. Abdomen: Limited for evaluation of abdominal trauma without contrast. The visualized portion of the liver (excluding the dome which is not included) is grossly intact. Pneumobilia is noted. Prior cholecystectomy. Spleen, pancreas, adrenal glands, kidneys and urinary tract are grossly intact. The visualized portions of the bowel are unremarkable. The upper portion of the urinary bladder is intact. The lower pelvis and inferior portion of the urinary bladder are not included on the scan. 12/17/19 06:59 Discharge - Discharge Information Problems reviewed: Yes Clinical Impression/Diagnosis: Fall Qualifiers: Encounter type: initial encounter Qualified Code(s): W19.XXXA - Unspecified fall, initial encounter Condition: Stable Disposition: HOME - Additional Discharge Information Prescriptions: Nitrofurantoin Monohyd/M-Cryst [Macrobid -] 100 mg PO BID #10 capsule - Follow up/Referral Referrals: Sissy Barrientos MD [Primary Care Provider] - - Patient Discharge Instructions Patient Printed Discharge Instructions: DI for Closed Head Injury Additional Instructions: Discharge Instructions: You were seen in the emergency department following a fall. You were not found to have any serious injury. You had some bacteria in your urine and reported symptoms of urinary tract infection (UTI); you were prescribed an antibiotic. Home Care and Follow Up: - You may use over the counter medications as needed for pain at home. 650- 1000mg acetaminophen (Tylenol) or 600mg ibuprofen (Motrin or Advil) can be used every 6-8 hours. If needed for continued pain, these medications may be alternated every 3-4 hours. For example, if you take ibuprofen at 9am, you may take acetaminophen at noon, ibuprofen at 3pm, etc. - It is strongly recommended that you take ibuprofen with food to help prevent stomach irritation. - You may buy a numbing patch that contains lidocaine (the patch is 4% lidocaine) that can be placed over the areas of greatest pain. The lidocaine patch may be placed for 12 hours then removed for 12 hours. - Try using an ice pack for 20 minutes every hour or a heating pad for additional pain control. These should NOT be used over the lidocaine patch, but you may place them over the areas of pain while the patch is off. - Do not stop moving around. As much as you can tolerate, continue to do light exercise and stretching exercises. Increase your activity level as much as you can tolerate daily. - Take the antibiotic that was prescribed twice per day for 5 days for treatment of your UTI. The antibiotic was sent to your pharmacy. - If your pain does not improve over the next week, see your regular doctor for follow up. - Seek immediate medical care if you have significant worsening of your symptoms, you have severe headache that does not improve with medication, you have any neurological symptoms (eg one-sided weakness or numbness, changes in your speech, facial droop), you are unusually sleepy or confused, you have mult iple episodes of vomiting per hour for at least 2 hours, or you have any other medical emergency. - Post Discharge Activity
--- NOTE | 2019-12-17 04:47 | PDOC ---
History of Present Illness - General Stated Complaint: FALL - History of Present Illness Initial Comments: 12/17/19 04:47 74yo F w/ PMHx pelvic fx BIBDRAKE from [facility] after she fell in her room and bumped her head. She states she was walking in her room and tripped over something, fell back and hit her head and R shoulder. She endorses R shoulder pain (on shoulder flexion). She denies LOC, lightheadedness, weakness, or vertiginous sx. She claims she remembers the whole event. Past History - Medical History Allergies/Adverse Reactions: Allergies Allergy/AdvReac Type Severity Reaction Status Date / Time cat dander Allergy Verified 12/17/19 04:28 lactose Allergy Verified 12/17/19 04:28 No Known Drug Allergies Allergy Verified 12/17/19 04:28 Home Medications: Ambulatory Orders Gemfibrozil [Lopid -] 600 mg PO BID 07/10/16 Hydroxychloroquine So4 [Plaquenil -] 200 mg PO BID 07/10/16 Lactase [Dairy Relief] 3,000 unit PO TID 07/10/16 Multivitamin [Poly-Vitamin] 1 each PO DAILY 07/10/16 clonazePAM [KlonoPIN] 0.5 mg PO TID 07/10/16 metFORMIN HCL [Metformin ER Osmotic] 1,000 mg PO BID 07/10/16 predniSONE [Deltasone -] 10 mg PO DAILY 07/10/16 Amlodipine Besylate [Norvasc -] 5 mg PO DAILY 03/25/18 Ascorbic Acid [Vitamin C -] 250 mg PO DAILY 03/25/18 Dextroamphetamine/Amphetamine [Adderall Xr 20 mg Capsule] 1 tab PO TID 03/25/18 Duloxetine HCl [Cymbalta -] 60 mg PO DAILY 03/25/18 Gabapentin [Neurontin -] 300 mg PO BID 03/25/18 Levothyroxine [Synthroid -] 88 mcg PO DAILY 03/25/18 Oxybutynin Chloride [Oxybutynin Chloride ER] 5 mg PO DAILY 03/25/18 Cyclobenzaprine HCl 5 mg PO DAILY PRN 11/07/19 Docusate Sodium [Docusate 100 mg] 100 mg PO BID 11/07/19 Ergocalciferol (Vitamin D2) [Vitamin D2] 50,000 unit PO ASDIR 11/07/19 Ferrous Gluconate [Fergon -] 324 mg PO DAILY 11/07/19 Lipase/Protease/Amylase [Creon Dr 24,000 Units Capsule] 0.5 tab PO TID 11/07/19 Sertraline HCl [Zoloft] 100 mg PO DAILY 11/07/19 Metoprolol Succinate 37.5 mg PO BID #0 tab 11/10/19 Nitrofurantoin Monohyd/M-Cryst [Macrobid -] 100 mg PO BID #10 capsule 12/17/19 COPD: No CHF: No Hypercholesterolemia: Yes (ELEVATED TRIGLYCERIDES) Psychiatric Problems: Yes (major depression with psychotic features, anxiety, personality disorder) Thyroid Disease: Yes (HYPO) - Surgical History Abdominal Surgery: Yes Cholecystectomy: Yes - Reproductive History Is Patient Now?: No - Immunization History Td Vaccination: Yes TDAP Vaccination: Yes Immunization Up to Date: Yes - Psycho-Social/Smoking History Smoking Status: No Smoking History: Never smoked Years of Tobacco Use: 0 Have you smoked in the past 12 months: No Number of Cigarettes Smoked Daily: 0 Cigars Per Day: 0 - Substance Abuse Hx (Audit-C & DAST Scrn) How often the patient has a drink containing alcohol: Never Score: In Men: 4 or > Positive; In Women: 3 or > Positive: 0 Screen Result (Pos requires Nsg. Audit-10AR): Negative In the last yr the pt used illegal drug/Rx for NonMed reason: No Score: Yes response is considered Positive: 0 Screen Result (Positive result requires Nsg. DAST-10): Negative Trauma Specific PMHX - Complaint Specific PMHX Arthritis: Yes Back Injury: Yes Review of Systems - Review of Systems Able to Perform ROS?: Yes Is the patient limited Frisian proficient: No Constitutional: No: Symptoms Reported HEENTM: Yes: Symptoms Reported (bump on her posterior occiput and a mild headache.). No: Blurred Vision, Recent change in vision, Double Vision, Ear Discharge Respiratory: No: Symptoms reported Cardiac (ROS): No: Symptoms Reported, Chest Pain, Lightheadedness, Palpitations, Syncope ABD/GI: No: Symptoms Reported : No: Symptoms Reported Musculoskeletal: Yes: Back Pain, Joint Pain (R shoulder, L pelvis) Integumentary: No: Symptoms Reported Neurological: Yes: Headache. No: Dizziness Endocrine: No: Symptoms Reported Hematologic/Lymphatic: No: Symptoms Reported All Other Systems: Reviewed and Negative *Physical Exam - Vital Signs Last Vital Signs Temp Pulse Resp BP Pulse Ox 98.1 F 65 18 123/65 98 12/17/19 04:29 12/17/19 04:29 12/17/19 04:29 12/17/19 04:29 12/17/19 04:29 - Physical Exam General Appearance: Yes: Nourished, Appropriately Dressed. No: Apparent Distress HEENT: positive: EOMI, Normal ENT Inspection Neck: negative: Tender Respiratory/Chest: positive: Lungs Clear, Normal Breath Sounds. negative: Chest Tender Cardiovascular: positive: Regular Rhythm, Regular Rate Vascular Pulses: Carotid (R): 1+, Carotid (L): 1+, Dorsalis-Pedis (R): 1+, Doralis-Pedis (L): 1+ Musculoskeletal: positive: Normal Inspection. negative: CVA Tenderness Extremity: positive: Normal Capillary Refill, Normal Inspection. negative: Normal Range of Motion (pain on flexion of R shoulder) Integumentary: positive: Normal Color, Dry, Warm Neurologic: positive: Fully Oriented, Alert, Normal Mood/Affect, Normal Response ED Treatment Course - LABORATORY CBC & Chemistry Diagram: 12/17/19 04:38 12/17/19 04:38 - RADIOLOGY Radiology Studies Ordered: Category Date Time Status HEAD CT WITHOUT CONTRAST [CT] Stat CT Scan 12/17/19 04:18 Ordered Discharge - Discharge Information Problems reviewed: Yes Clinical Impression/Diagnosis: Fall Qualifiers: Encounter type: initial encounter Qualified Code(s): W19.XXXA - Unspecified fall, initial encounter Condition: Stable Disposition: HOME - Additional Discharge Information Prescriptions: Nitrofurantoin Monohyd/M-Cryst [Macrobid -] 100 mg PO BID #10 capsule - Follow up/Referral Referrals: Sissy Barrientos MD [Primary Care Provider] - - Patient Discharge Instructions Patient Printed Discharge Instructions: DI for Closed Head Injury Additional Instructions: Discharge Instructions: You were seen in the emergency department following a fall. You were not found to have any serious injury. You had some bacteria in your urine and reported symptoms of urinary tract infection (UTI); you were prescribed an antibiotic. Home Care and Follow Up: - You may use over the counter medications as needed for pain at home. 650- 1000mg acetaminophen (Tylenol) or 600mg ibuprofen (Motrin or Advil) can be used every 6-8 hours. If needed for continued pain, these medications may be alternated every 3-4 hours. For example, if you take ibuprofen at 9am, you may take acetaminophen at noon, ibuprofen at 3pm, etc. - It is strongly recommended that you take ibuprofen with food to help prevent stomach irritation. - You may buy a numbing patch that contains lidocaine (the patch is 4% lidocaine) that can be placed over the areas of greatest pain. The lidocaine patch may be placed for 12 hours then removed for 12 hours. - Try using an ice pack for 20 minutes every hour or a heating pad for additional pain control. These should NOT be used over the lidocaine patch, but you may place them over the areas of pain while the patch is off. - Do not stop moving around. As much as you can tolerate, continue to do light exercise and stretching exercises. Increase your activity level as much as you can tolerate daily. - Take the antibiotic that was prescribed twice per day for 5 days for treatment of your UTI. The antibiotic was sent to your pharmacy. - If your pain does not improve over the next week, see your regular doctor for follow up. - Seek immediate medical care if you have significant worsening of your symptoms, you have severe headache that does not improve with medication, you have any neurological symptoms (eg one-sided weakness or numbness, changes in your speech, facial droop), you are unusually sleepy or confused, you have multiple episodes of vomiting per hour for at least 2 hours, or you have any other medical emergency. - Post Discharge Activity
[2019-12-17 04:55] LABS: BASO % 0.5 % (0-2.0); HEMATOCRIT 30.4 % (32.4-45.2); HEMOGLOBIN 10.4 GM/dL (10.7-15.3); LYMPH % 18.9 % (8-40); MCH 31.3 pg (25.7-33.7); MCHC 34.1 g/dl (32.0-36.0); MEAN CELL VOLUME 91.9 fl (80-96); MEAN PLT VOLUME 7.6 fl (7.5-11.1); MONO % 9.2 % (3.8-10.2); NEUT % 67.4 % (42.8-82.8); PLATELET COUNT 260 K/MM3 (134-434); RBC 3.31 M/mm3 (3.60-5.2); RDW 13.2 % (11.6-15.6); WHITE BLOOD COUNT 8.8 K/mm3 (4.0-10.0)
[2019-12-17 05:03] LABS: PROTHROMBIN TIME (PATIENT) 11.8 SEC (9.7-13.0)
[2019-12-17 05:06] LABS: ACTIVATED PTT 35.9 SECONDS (25.2-36.5)
[2019-12-17 05:22] LABS: ALBUMIN 3.6 g/dl (3.4-5.0); ALK PHOS 83 U/L (45-117); ANION GAP 8 MMOL/L (8-16); BILIRUBIN,TOTAL 0.4 mg/dL (0.2-1); BLOOD UREA NITROGEN 27.4 mg/dL (7-18); CALCIUM 9.5 mg/dL (8.5-10.1); CHLORIDE 108 mmol/L (98-107); CO2 26 mmol/L (21-32); CREATININE 0.8 mg/dL (0.55-1.3); GLUCOSE,RANDOM 82 mg/dL (74-106); POTASSIUM 3.8 mmol/L (3.5-5.1); SGOT/AST 15 U/L (15-37); SGPT/ALT 13 U/L (13-61); SODIUM 141 mmol/L (136-145); TOT PROT 6.5 g/dl (6.4-8.2)
--- OUTSIDE RECORDS SUMMARY | 2019-12-17 05:41 | XMS ---
:1945 Author Organization [facility] Care Team Providers Name Role Phone CANASTAR, MEHTAP Unavailable Unavailable JACKY NELSON Unavailable Unavailable NED TYLER MD Unavailable Unavailable NED TYLER MD Unavailable Unavailable BEATRICE ARVIZU Unavailable Unavailable JESSICA ELLIOTT Unavailable Unavailable Re-disclosure Warning The records that you are about to access may contain information from federally- assisted alcohol or drug abuse programs. If such information is present, then the following federally mandated warning applies: This information has been disclosed to you from records protected by federal confidentiality rules (42 CFR part 2). The federal rules prohibit you from making any further disclosure of this information unless further disclosure is expressly permitted by the written consent of the person to whom it pertains or as otherwise permitted by 42 CFR part 2. A general authorization for the release of medical or other information is NOT sufficient for this purpose. The Federal rules restrict any use of the information to criminally investigate or prosecute any alcohol or drug abuse patient.The records that you are about to access may contain highly sensitive health information, the redisclosure of which is protected by Article 27-F of the [facility] Public Health law. If you continue you may haveaccess to information: Regarding HIV / AIDS; Provided by facilities licensed or operated by the [facility] Office of Mental Health; or Provided by the [facility] Office for People With Developmental Disabilities. If such information is present, then the following [facility] mandated warning applies: This information has been disclosed to you from confidential records which are protected by state law. State law prohibits you from making any further disclosure of this information without the specific written consent of the person to whom it pertains, or as otherwise permitted by law. Any unauthorized further disclosure in violation of state law may result in a fine or skilled nursing sentence or both. A general authorization for the release of medical or other information is NOT sufficient authorization for further disclosure. Allergies and Adverse Reactions Type Description Substance Reaction Status Data Source(s ) Environmental Mold Mold Shortness of [facility] er Allergy Breath [facility] Drug allergy lactose lactose [facility] Drug allergy No Known Drug No Known Drug [facility] Cat Cat Shortness of [facility] er Allergy Breath [facility] En[facility]ters Encounter Providers Location Date Indications Data Source(s ) Unlisted 02/22/2019 NETSMART (Ment al evaluation and 08:00:00 PM Health As sociation management service [facility]) Unlisted 02/14/2019 NETSPERFECTO (Ment al evaluation and 07:20:00 PM Health As sociation management service [facility]) Outpatient Attender: 01/27/2019 R10.84 [facility] EARL, 11:16:00 Health Care ZVIAdmitter: [facility] Mauro ELLIOTTerrer: NED TYLER MD R10.84 Outpatient Attender: NED 01/19/2019 06:00:00 R10.84 [facility] MDAdmitter: AM [facility] Mauro ELLIOTTerrer: C orporation NED TYLER MD R10.84 Outpatient Attender: NED 09/22/2018 08:44:00 R10.9 [facility] MDAdmitter: AM [facility] MDReferrer: NED TYLER MD R10.9 Outpatient Attender: NED 09/22/2018 06:00:00 R10.9 [facility] MDAdmitter: AM [facility] Care NED TYLER Corporati on MDReferrer: NED TYLER MD R10.9 Outpatient Attender: KARENRUSTAMOMER 07/11/2018 01:41:00 Z12.11 [facility] JACKY WrayAdmitter: PM ED Health are JACKY NELSONReferrer: JACKY NELSON Z12.11 Outpatient Attender: LESLIE 07/11/2018 06:00:00 Z12.11 [facility] JACKY WrayAdmitter: AM [facility] are JACKY NELSONReferrer: JACKY NELSON Z12.11 Outpatient Attender: LESLIE 06/20/2018 06:00:00 K86.1,K5 9.00 [facility] JACKY WrayAdmitter: AM [facility] are JACKY NELSONReferrer: JACKY NELSON K86.1,K59.00 Outpatient Attender: JACKY NELSON 05/19/2018 06:00:00 [facility] Hospital[facility]oydAttender: YOCASTA ARVIZU [facility] Care EDWARDAdmitter: Hiro NELSONReferrer: LILIAN OVALLE Insurance Providers Payer name Policy type Policy ID Covered Covered alliance party's Policy P fan / Coverage alliance party ID relationship to [employer] ormation type hernandez SHERYL MEDICARE [id number] SP [id number] [facility] DUAL [id number] SP [id number] 22 COMPLETE MEDICAID [id number] SP [id number] MEDICARE [id number] SP [id number] Problems, Conditions, and Diagnoses Code Display Name Description Problem Type Effective Data Sour ce(s) Dates R10.84 Generalized GENERALIZED Diagnosis 01/27/2019 [place] abdominal pain ABDOMINAL PAIN 11:16:00 AM [facility] EST Care [employer] M32.8 Other forms of OTHER FORMS OF Diagnosis 09/22/2018 [facility] systemic lupus SYSTEMIC LUPUS 08:44:00 AM Count [facility] erythematosus ERYTHEMATOSUS ED [employer] Z09 Encounter for ENCNTR FOR F/U Diagnosis 09/22/2018 [facility] follow-up EXAM AFT TRTMT 08:44:00 AM [facility] examination after FOR COND OTH THAN EDT Care completed treatment MALIG NEOPLM Cor poration for conditions other than malignant neoplasm Z87.11 Personal history of PERSONAL HISTORY Diagnosis 09/22/2018 [place] peptic ulcer OF PEPTIC ULCER 08:44:00 AM [facility] disease DISEASE EDT Care [facility] K57.30 Diverticulosis of DVRTCLOS OF LG Diagnosis 09/22/2018 [place] large intestine INT W/O 08:44:00 AM [facility] without perforation PERFORATION OR EDT C are or abscess without ABSCESS W/O Corpo ration bleeding BLEEDING K62.89 Other specified OTHER SPECIFIED Diagnosis 09/22/2018 [place] diseases of anus DISEASES OF ANUS 08:44:00 AM [facility] rectum AND RECTUM EDT [facility] K44.9 Diaphragmatic DIAPHRAGMATIC Diagnosis 09/22/2018 [facility] hernia without HERNIA WITHOUT 08:44:00 AM [facility] Health obstruction or OBSTRUCTION OR EDT Care gangrene GANGRENE Corporation K31.89 Other diseases of OTHER DISEASES OF Diagnosis 09/22/2018 [place] stomach and STOMACH AND 08:44:00 AM [facility] duodenum DUODENUM EDT [facility] Z79.84 manager long term care (current) CUSTODIAL Diagnosis 07/11/2018 [facility] grayson use of oral (CURRENT) USE OF 01:41:00 PM [facility] hypoglycemic drugs ORAL HYPOGLYCEMIC EDT Care DRUGS Corporation F17.200 Nicotine NICOTINE Diagnosis 07/11/2018 [place] dependence, DEPENDENCE, 01:41:00 PM [facility] unspecified, UNSPECIFIED, EDT Care uncomplicated UNCOMPLICATED Corporat ion E78.5 Hyperlipidemia, HYPERLIPIDEMIA, Diagnosis 07/11/2018 [place] unspecified UNSPECIFIED 01:41:00 PM [facility] EDT [facility] E11.9 Type 2 diabetes TYPE 2 DIABETES Diagnosis 07/11/2018 [place] mellitus without MELLITUS WITHOUT 01:41:00 PM [facility] complications COMPLICATIONS EDT [facility] M35.00 Sicca syndrome, SICCA SYNDROME, Diagnosis 07/11/2018 [place] unspecified UNSPECIFIED 01:41:00 PM [facility] EDT [facility] E20.9 Hypoparathyroidism, HYPOPARATHYROIDIS Diagnosis 9 [place] unspecified M, UNSPECIFIED 01:41:00 PM [facility] ealth EDT Care [facility] I10 Essential (primary) ESSENTIAL Diagnosis 07/11/2018 [facility] grayson hypertension (PRIMARY) 01:41:00 PM [facility] HYPERTENSION EDT [facility] K25.9 Gastric ulcer, GASTRIC ULCER, Diagnosis 07/11/2018 [facility] unspecified as UNSP ACUTE OR 01:41:00 PM [facility] acute or chronic, CHRONIC, W/O EDT Care without hemorrhage HEMOR OR PERF Cor poration or perforation Z12.11 Encounter for ENCOUNTER FOR Diagnosis 07/11/2018 [facility] screening for SCREENING FOR 01:41:00 PM [facility] malignant neoplasm MALIGNANT EDT Care of colon NEOPLASM OF COLON Corpora tion K86.1 Other chronic OTHER CHRONIC Diagnosis 06/29/2018 [facility] pancreatitis PANCREATITIS 12:00:00 AM [facility] EDT [facility] K83.9 Disease of biliary DISEASE OF Diagnosis 06/29/2018 [facility] rex tract, unspecified BILIARY TRACT, 12:00:00 AM [facility] UNSPECIFIED EDT [facility] K85.90 Acute pancreatitis ACUTE Diagnosis 05/19/2018 [facility] without necrosis or PANCREATITIS 06:00:00 AM [facility] infection, WITHOUT NECROSIS EST Care unspecified OR INFECTION, Corporatio n UNSP R19.7 Diarrhea, DIARRHEA, Diagnosis 05/19/2018 [place] unspecified UNSPECIFIED 06:00:00 AM [facility] EST Care [facility] Results ID Date Data Source [id number] 12/10/2019 01:27:00 PM [facility] Name Value Range Interpretation Code Description Data Aura rce(s) Supporting Document(s ) [facility] SARS-CoV-2 TMA PCR This lab was ordered by [facility] and reported by [facility]. ID Date Data Source [id number] 11/30/2019 09:29:00 AM EDT [facility] Name Value Range Interpretation Code Description Data Aura rce(s) Supporting Document(s ) [facility] SARS-CoV-2 TMA PCR This lab was ordered by [facility] and reported by [facility]. ID Date Data Source [id number] 11/10/2019 10:00:00 AM EDT [facility] Name Value Range Interpretation Code Description Data Aura rce(s) Supporting Document(s ) [facility] SARS-CoV-2 TMA PCR This lab was ordered by [facility] and reported by [facility]. ID Date Data Source [id number] 11/07/2019 05:30:00 AM EDT [facility] Name Value Range Interpretation Description Data Sup porting Code Source(s) Document(s ) [facility] coronavirus 2 RNA This lab was ordered by [facility] and reported by [facility]. ID Date Data Source [id number] 10/09/2019 12:00:00 AM EDT [facility] Name Value Range Interpretation Code Description Data Aura rce(s) Supporting Document(s ) SARS-CoV-2 [facility] RNA Resp Ql JEN+probe This lab was ordered by [facility] and reported by [facility]. Procedure
--- NOTE | 2019-12-17 07:30 | PDOC ---
*Physical Exam - Vital Signs Last Vital Signs Temp Pulse Resp BP Pulse Ox 98.2 F 61 17 138/67 96 12/17/19 06:29 12/17/19 06:29 12/17/19 06:29 12/17/19 06:29 12/17/19 06:29 ED Treatment Course - LABORATORY CBC & Chemistry Diagram: 12/17/19 04:38 12/17/19 04:38 - ADDITIONAL ORDERS Additional order review: Laboratory Results 12/17/19 12/17/19 04:38 04:38 PT with INR 11.80 INR 1.00 PTT (Actin FS) 35.9 Sodium 141 Potassium 3.8 Chloride 108 H Carbon Dioxide 26 Anion Gap 8 BUN 27.4 H Creatinine 0.8 Est GFR (CKD-EPI)AfAm 84.77 Est GFR (CKD-EPI)NonAf 73.14 Random Glucose 82 Calcium 9.5 Total Bilirubin 0.4 AST 15 ALT 13 Alkaline Phosphatase 83 Troponin I < 0.02 Total Protein 6.5 Albumin 3.6 12/17/19 04:38 RBC 3.31 L MCV 91.9 MCHC 34.1 RDW 13.2 MPV 7.6 Neutrophils % 67.4 Lymphocytes % 18.9 D Monocytes % 9.2 Eosinophils % 4.0 Basophils % 0.5 Medical Decision Making - Medical Decision Making 12/17/19 07:24 Sign out received from Dr Calvo. Ms Stafford is a 74yo woman who presented overnight following a mechanical fall. Imaging overnight was negative for acute injury Medical workup is pending UA as the patient reports urinary urgency. 12/17/19 09:32 - UA indeterminate; as she reports symptoms will give antibiotics - D/c home Discussed with Dr Cayden Desouza PGY3 Discharge - Discharge Information Problems reviewed: Yes Clinical Impression/Diagnosis: Fall Qualifiers: Encounter type: initial encounter Qualified Code(s): W19.XXXA - Unspecified fall, initial encounter Condition: Stable Disposition: HOME - Admission No - Additional Discharge Information Prescriptions: Nitrofurantoin Monohyd/M-Cryst [Macrobid -] 100 mg PO BID #10 capsule - Follow up/Referral Referrals: Sissy Barrientos MD [Primary Care Provider] - - Patient Discharge Instructions Patient Printed Discharge Instructions: DI for Closed Head Injury Additional Instructions: Discharge Instructions: You were seen in the emergency department following a fall. You were not found to have any serious injury. You had some bacteria in your urine and reported symptoms of urinary tract infection (UTI); you were prescribed an antibiotic. Home Care and Follow Up: - You may use over the counter medications as needed for pain at home. 650- 1000mg acetaminophen (Tylenol) or 600mg ibuprofen (Motrin or Advil) can be used every 6-8 hours. If needed for continued pain, these medications may be alternated every 3-4 hours. For example, if you take ibuprofen at 9am, you may take acetaminophen at noon, ibuprofen at 3pm, etc. - It is strongly recommended that you take ibuprofen with food to help prevent stomach irritation. - You may buy a numbing patch that contains lidocaine (the patch is 4% lidocaine) that can be placed over the areas of greatest pain. The lidocaine patch may be placed for 12 hours then removed for 12 hours. - Try using an ice pack for 20 minutes every hour or a heating pad for additional pain control. These should NOT be used over the lidocaine patch, but you may place them over the areas of pain while the patch is off. - Do not stop moving around. As much as you can tolerate, continue to do light e xercise and stretching exercises. Increase your activity level as much as you can tolerate daily. - Take the antibiotic that was prescribed twice per day for 5 days for treatment of your UTI. The antibiotic was sent to your pharmacy. - If your pain does not improve over the next week, see your regular doctor for follow up. - Seek immediate medical care if you have significant worsening of your sy mptoms, you have severe headache that does not improve with medication, you have any neurological symptoms (eg one-sided weakness or numbness, changes in your speech, facial droop), you are unusually sleepy or confused, you have multiple episodes of vomiting per hour for at least 2 hours, or you have any other medical emergency. - Post Discharge Activity
[2019-12-17 09:07] LABS: EPI CELLS 35 /uL (0-25.1); HYALINE CASTS 2 /uL (0-3.1); PH,URINE 5.5 (5.0-8.0); URINE APPEARANCE CLEAR; URINE BACTERIA 33 /uL (0-1359); URINE BILIRUBIN NEGATIVE (NEGATIVE); URINE COLOR YELLOW; URINE GLUCOSE (UA) NEGATIVE (NEGATIVE); URINE KETONE NEGATIVE (NEGATIVE); URINE LEUK ESTERASE 2+ (NEGATIVE); URINE NITRITE NEGATIVE (NEGATIVE); URINE PROTEIN 1+ (NEGATIVE); URINE RBC 27 /uL (0-23.9); URINE UROBILINOGEN 0.2 mg/dL (0.2-1.0); URINE WBC 178 /uL (0-25.8)
[2019-12-17 09:33] VITALS: TEMP 98.2
[2019-12-17 12:00] VITALS: BP 127/65; PULSE 68
--- NOTE | 2019-12-17 19:54 | EKG ---
Test Reason : Blood Pressure : / mmHG Vent. Rate : 061 BPM Atrial Rate : 061 BPM P-R Int : 166 ms QRS Dur : 078 ms QT Int : 432 ms P-R-T Axes : 000 018 -14 degrees QTc Int : 434 ms NORMAL SINUS RHYTHM NORMAL ECG WHEN COMPARED WITH ECG OF 07-NOV-2019 09:22, NO SIGNIFICANT CHANGE WAS FOUND Confirmed by ANA NICOLE MD ([id number]) on 12/17/2019 7:53:51 PM Referred By: Confirmed By:ANA NICOLE MD
== END 2019-12-17 12:00 | disposition home or self-care (01) ==
LOC: JER 04:01
DX: S09.90XA Unspecified injury of head, initial encounter (principal)
CPT/HCPCS: 36415; 70450-TC; 71045-TC-FY; 72125-TC; 72131-TC; 73523-TC-FY; 80053; 81003; 84484; 85025; 85610; 85730; 93005; 93010; 99285-25

== ENCOUNTER 2019-12-27 09:15 | Inpatient (IN) | payer OTHER ==
[2019-12-27 10:47] LABS: EPI CELLS 10 /uL (0-25.1); HYALINE CASTS 2 /uL (0-3.1); URINE APPEARANCE CLEAR; URINE BACTERIA 2 /uL (0-1359); URINE BILIRUBIN NEGATIVE (NEGATIVE); URINE COLOR YELLOW; URINE GLUCOSE (UA) NEGATIVE (NEGATIVE); URINE KETONE NEGATIVE (NEGATIVE); URINE LEUK ESTERASE NEGATIVE (NEGATIVE); URINE NITRITE NEGATIVE (NEGATIVE); URINE PROTEIN 1+ (NEGATIVE); URINE RBC 5 /uL (0-23.9); URINE UROBILINOGEN 0.2 mg/dL (0.2-1.0); URINE WBC 13 /uL (0-25.8)
[2019-12-27] MEDS ORDERED: CEFTRIAXONE 1,000 MG in DEXTROSE 5%-WATER - 50 ML IVPB ONE (13:07)
[2019-12-27] MEDS ORDERED: ACETAMINOPHEN 1000 MG/100 ML BAG IVPB ONE (13:20)
[2019-12-27] MEDS ORDERED: morphine CARPU-JECT 4 MG/1 ML DISP.SYRIN IVPUSH ONE (13:20)
[2019-12-27] MEDS ORDERED: ACETAMINOPHEN INJECTION 100 ML IVPB ONE ×2 (13:31→22:19)
[2019-12-27] MEDS ORDERED: morphine SULFATE 4 MG/ML VIAL ONE (13:31)
[2019-12-27 13:32] LABS: BASO % 0.6 % (0-2.0); EOS % 5.2 % (0-4.5); HEMATOCRIT 30.4 % (32.4-45.2); HEMOGLOBIN 10.4 GM/dL (10.7-15.3); LYMPH % 22.9 % (8-40); MCH 31.3 pg (25.7-33.7); MCHC 34.1 g/dl (32.0-36.0); MEAN CELL VOLUME 91.8 fl (80-96); MEAN PLT VOLUME 7.4 fl (7.5-11.1); MONO % 9.4 % (3.8-10.2); NEUT % 61.9 % (42.8-82.8); PLATELET COUNT 261 K/MM3 (134-434); RBC 3.32 M/mm3 (3.60-5.2); WHITE BLOOD COUNT 5.9 K/mm3 (4.0-10.0)
[2019-12-27] MEDS ORDERED: CEFTRIAXONE 1 GM/50 ML BAG ONE (13:32)
[2019-12-27] MEDS ORDERED: SODIUM CHLORIDE 1,000 ML IV SCH (14:00)
[2019-12-27] MEDS: ACETAMINOPHEN 1000 MG/100 ML BAG IVPB SCH ×2 (14:00→22:35)
[2019-12-27 14:09] LABS: ALBUMIN 3.4 g/dl (3.4-5.0); BILIRUBIN,TOTAL 0.4 mg/dL (0.2-1); BLOOD UREA NITROGEN 16.8 mg/dL (7-18); CALCIUM 8.7 mg/dL (8.5-10.1); CREATININE 0.5 mg/dL (0.55-1.3); TOT PROT 6.4 g/dl (6.4-8.2)
[2019-12-27 15:33] LABS: INR 1.03 (0.83-1.09); PROTHROMBIN TIME (PATIENT) 12.7 SEC (9.7-13.0)
[2019-12-27 15:36] LABS: ACTIVATED PTT 35.2 SECONDS (25.2-36.5)
[2019-12-27] MEDS: LIPASE/PROTEASE/AMYLASE 6,000 UNIT CAPSULE PO SCH (19:13)
[2019-12-27] MEDS ORDERED: HYDROXYCHLOROQUINE SO4 200 MG TABLET (FP) PO ONE (22:18)
[2019-12-27] MEDS ORDERED: METOPROLOL TARTRATE 25 MG TABLET (FP) ONE (22:18)
[2019-12-27] MEDS ORDERED: GABAPENTIN 100 MG CAPSULE ONE (22:19)
[2019-12-27] MEDS: CALCIUM 500MG/VIT-D 200 UNITS COMBO TABLET (FP) PO SCH (22:35)
[2019-12-27] MEDS: HYDROXYCHLOROQUINE SO4 200 MG TABLET (FP) PO SCH (22:35)
[2019-12-27] MEDS: GABAPENTIN 100 MG CAPSULE PO SCH (22:35)
[2019-12-27] MEDS: metoPROLOL SUCCINATE 25 MG TAB.SR.24H (FP) PO SCH (22:35)
[2019-12-28] MEDS: GEMFIBROZIL 600 MG TABLET (FP) PO SCH ×3 (02:00→22:09)
[2019-12-28] MEDS ORDERED: amLODIPine BESYLATE 5 MG TABLET (FP) PO ONE (03:10)
[2019-12-28 04:04] LABS: EPI CELLS >36 /uL (0-25.1); HYALINE CASTS 1 /uL (0-3.1); PH,URINE 6.5 (5.0-8.0); URINE APPEARANCE CLOUDY; URINE BACTERIA >9,000 /uL (0-1359); URINE BILIRUBIN NEGATIVE (NEGATIVE); URINE COLOR YELLOW; URINE GLUCOSE (UA) NEGATIVE (NEGATIVE); URINE KETONE NEGATIVE (NEGATIVE); URINE LEUK ESTERASE 2+ (NEGATIVE); URINE NITRITE POSITIVE (NEGATIVE); URINE PROTEIN NEGATIVE (NEGATIVE); URINE RBC 10 /uL (0-23.9); URINE UROBILINOGEN 0.2 mg/dL (0.2-1.0); URINE WBC 17 /uL (0-25.8)
[2019-12-28] MEDS ORDERED: amLODIPine BESYLATE 5 MG TABLET (FP) ONE (04:36)
[2019-12-28] MEDS: ACETAMINOPHEN 1000 MG/100 ML BAG IVPB SCH ×4 (05:03→22:25)
[2019-12-28 07:27] LABS: HEMOGLOBIN 10.9 GM/dL (10.7-15.3); MCH 31.5 pg (25.7-33.7); MCHC 34.1 g/dl (32.0-36.0); MEAN CELL VOLUME 92.2 fl (80-96); MEAN PLT VOLUME 7.5 fl (7.5-11.1); PLATELET COUNT 268 K/MM3 (134-434); RBC 3.47 M/mm3 (3.60-5.2); RDW 13.1 % (11.6-15.6); WHITE BLOOD COUNT 6.7 K/mm3 (4.0-10.0)
[2019-12-28 08:00] LABS: ALBUMIN 3.2 g/dl (3.4-5.0); BLOOD UREA NITROGEN 12.6 mg/dL (7-18); CALCIUM 8.7 mg/dL (8.5-10.1); CREATININE 0.4 mg/dL (0.55-1.3); PHOSPHOROUS 3.2 mg/dL (2.5-4.9)
[2019-12-28 08:02] LABS: BILIRUBIN,TOTAL 0.3 mg/dL (0.2-1); TOT PROT 6.2 g/dl (6.4-8.2)
[2019-12-28] MEDS ORDERED: ACETAMINOPHEN INJECTION 100 ML IVPB ONE (08:48)
[2019-12-28] MEDS: LIPASE/PROTEASE/AMYLASE 6,000 UNIT CAPSULE PO SCH ×3 (09:17→17:09)
[2019-12-28] MEDS: ASCORBIC ACID 250 MG TABLET (FP) PO SCH (09:19)
[2019-12-28] MEDS: CALCIUM 500MG/VIT-D 200 UNITS COMBO TABLET (FP) PO SCH ×2 (09:26→22:09)
[2019-12-28] MEDS: FERROUS GLUCONATE 324 MG TAB (FP) PO SCH (09:28)
[2019-12-28] MEDS: ENOXAPARIN NA (PORCINE) 40 MG/0.4 ML DISP.SYRIN SQ SCH (11:22)
[2019-12-28] MEDS: metoPROLOL SUCCINATE 25 MG TAB.SR.24H (FP) PO SCH ×2 (11:22→22:08)
[2019-12-28] MEDS: LEVOTHYROXINE NA 88 MCG TABLET (FP) PO SCH (11:23)
[2019-12-28] MEDS: GABAPENTIN 100 MG CAPSULE PO SCH ×2 (11:23→22:08)
[2019-12-28] MEDS: DULoxetine HCL 30 MG CAPSULE.DR PO SCH (11:24)
[2019-12-28] MEDS: predniSONE 5 MG TABLET (UD) PO SCH (11:24)
[2019-12-28] MEDS: MULTIVITAMINS (DAILY MVI) TABLET (FP) PO SCH (11:25)
[2019-12-28] MEDS ORDERED: PT OWN MED DRAWER 7, Y5N ONE ×2 (12:36→21:29)
[2019-12-28] MEDS ORDERED: cefTRIAXone SODIUM 1 GM VIAL ONE (12:37)
[2019-12-28] MEDS ORDERED: DEXTROSE 5%-WATER - 50 ML IVPB ONE (12:37)
[2019-12-28] MEDS: CEFTRIAXONE 1 GM in DEXTROSE 5%-WATER - 50 ML IVPB SCH (12:50)
[2019-12-28] MEDS: HYDROXYCHLOROQUINE SO4 200 MG TABLET (FP) PO SCH ×2 (12:51→22:10)
[2019-12-28] MEDS: SERTRALINE HCL 50 MG TABLET (FP) PO SCH (12:51)
[2019-12-28 15:53] VITALS: BMI 27.4
[2019-12-28] MEDS: CYCLOBENZAPRINE HCL 5 MG TABLET PO PRN (22:31)
[2019-12-29] MEDS: ACETAMINOPHEN 1000 MG/100 ML BAG IVPB SCH ×3 (02:51→13:32)
[2019-12-29] MEDS: LEVOTHYROXINE NA 88 MCG TABLET (FP) PO SCH (06:39)
[2019-12-29] MEDS: LIPASE/PROTEASE/AMYLASE 6,000 UNIT CAPSULE PO SCH ×3 (06:40→17:05)
[2019-12-29 09:04] LABS: HEMATOCRIT 31.2 % (32.4-45.2); HEMOGLOBIN 10.8 GM/dL (10.7-15.3); MCH 31.3 pg (25.7-33.7); MCHC 34.5 g/dl (32.0-36.0); MEAN CELL VOLUME 90.9 fl (80-96); MEAN PLT VOLUME 7.6 fl (7.5-11.1); PLATELET COUNT 267 K/MM3 (134-434); RBC 3.44 M/mm3 (3.60-5.2); RDW 12.9 % (11.6-15.6); WHITE BLOOD COUNT 6.7 K/mm3 (4.0-10.0)
[2019-12-29 09:17] LABS: BLOOD UREA NITROGEN 16.9 mg/dL (7-18); CALCIUM 8.8 mg/dL (8.5-10.1); CREATININE 0.5 mg/dL (0.55-1.3); MAGNESIUM 2.1 mg/dL (1.8-2.4); PHOSPHOROUS 3.3 mg/dL (2.5-4.9)
[2019-12-29] MEDS ORDERED: cefTRIAXone SODIUM 1 GM VIAL ONE (09:18)
[2019-12-29] MEDS ORDERED: PT OWN MED DRAWER 7, Y5N ONE ×5 (09:18→20:47)
[2019-12-29] MEDS ORDERED: DEXTROSE 5%-WATER - 50 ML IVPB ONE (09:18)
[2019-12-29] MEDS: CEFTRIAXONE 1 GM in DEXTROSE 5%-WATER - 50 ML IVPB SCH (09:20)
[2019-12-29] MEDS: ENOXAPARIN NA (PORCINE) 40 MG/0.4 ML DISP.SYRIN SQ SCH (09:26)
[2019-12-29] MEDS: SERTRALINE HCL 50 MG TABLET (FP) PO SCH (09:27)
[2019-12-29] MEDS: metoPROLOL SUCCINATE 25 MG TAB.SR.24H (FP) PO SCH ×2 (09:27→21:05)
[2019-12-29] MEDS: DULoxetine HCL 30 MG CAPSULE.DR PO SCH (09:29)
[2019-12-29] MEDS: CALCIUM 500MG/VIT-D 200 UNITS COMBO TABLET (FP) PO SCH ×2 (09:29→21:05)
[2019-12-29] MEDS: predniSONE 5 MG TABLET (UD) PO SCH (09:30)
[2019-12-29] MEDS: MULTIVITAMINS (DAILY MVI) TABLET (FP) PO SCH (09:31)
[2019-12-29] MEDS: FERROUS GLUCONATE 324 MG TAB (FP) PO SCH (09:31)
[2019-12-29] MEDS: HYDROXYCHLOROQUINE SO4 200 MG TABLET (FP) PO SCH ×2 (09:32→21:05)
[2019-12-29] MEDS: amLODIPine BESYLATE 5 MG TABLET (FP) PO SCH (09:33)
[2019-12-29] MEDS: GEMFIBROZIL 600 MG TABLET (FP) PO SCH ×2 (09:33→21:05)
[2019-12-29] MEDS: GABAPENTIN 100 MG CAPSULE PO SCH ×2 (09:33→21:05)
[2019-12-29] MEDS: ASCORBIC ACID 250 MG TABLET (FP) PO SCH (09:35)
[2019-12-29] MEDS ORDERED: ACETAMINOPHEN 1000 MG/100 ML BAG IVPB SCH (18:35)
[2019-12-29] MEDS ORDERED: ACETAMINOPHEN 500 MG TABLET (FP) PO SCH (18:36)
[2019-12-29] MEDS: CYCLOBENZAPRINE HCL 5 MG TABLET PO PRN (23:24)
[2019-12-30] MEDS: ACETAMINOPHEN 500 MG TABLET (FP) PO PRN ×4 (01:53→21:31)
[2019-12-30] MEDS: LEVOTHYROXINE NA 88 MCG TABLET (FP) PO SCH (06:37)
[2019-12-30] MEDS: LIPASE/PROTEASE/AMYLASE 6,000 UNIT CAPSULE PO SCH ×3 (06:39→17:47)
[2019-12-30 08:43] LABS: HEMATOCRIT 31.5 % (32.4-45.2); HEMOGLOBIN 11.1 GM/dL (10.7-15.3); MCH 32.3 pg (25.7-33.7); MCHC 35.2 g/dl (32.0-36.0); MEAN CELL VOLUME 91.9 fl (80-96); MEAN PLT VOLUME 7.5 fl (7.5-11.1); PLATELET COUNT 253 K/MM3 (134-434); RBC 3.43 M/mm3 (3.60-5.2); WHITE BLOOD COUNT 7.5 K/mm3 (4.0-10.0)
[2019-12-30 08:52] LABS: CALCIUM 9.2 mg/dL (8.5-10.1)
[2019-12-30 08:53] LABS: BLOOD UREA NITROGEN 18.6 mg/dL (7-18); MAGNESIUM 2.1 mg/dL (1.8-2.4)
[2019-12-30 08:56] LABS: CREATININE 0.5 mg/dL (0.55-1.3); PHOSPHOROUS 3.9 mg/dL (2.5-4.9)
[2019-12-30] MEDS ORDERED: cefTRIAXone SODIUM 1 GM VIAL ONE (10:31)
[2019-12-30] MEDS ORDERED: DEXTROSE 5%-WATER - 50 ML IVPB ONE (10:32)
[2019-12-30] MEDS: CEFTRIAXONE 1 GM in DEXTROSE 5%-WATER - 50 ML IVPB SCH (10:41)
[2019-12-30] MEDS: ENOXAPARIN NA (PORCINE) 40 MG/0.4 ML DISP.SYRIN SQ SCH (10:41)
[2019-12-30] MEDS: GABAPENTIN 100 MG CAPSULE PO SCH (10:43)
[2019-12-30] MEDS: predniSONE 5 MG TABLET (UD) PO SCH (10:43)
[2019-12-30] MEDS: amLODIPine BESYLATE 5 MG TABLET (FP) PO SCH (10:44)
[2019-12-30] MEDS: metoPROLOL SUCCINATE 25 MG TAB.SR.24H (FP) PO SCH ×2 (10:44→21:30)
[2019-12-30] MEDS: CALCIUM 500MG/VIT-D 200 UNITS COMBO TABLET (FP) PO SCH ×2 (10:44→21:30)
[2019-12-30] MEDS: DULoxetine HCL 30 MG CAPSULE.DR PO SCH (10:44)
[2019-12-30] MEDS: MULTIVITAMINS (DAILY MVI) TABLET (FP) PO SCH (10:45)
[2019-12-30] MEDS: FERROUS GLUCONATE 324 MG TAB (FP) PO SCH (10:45)
[2019-12-30] MEDS ORDERED: PT OWN MED DRAWER 7, Y5N ONE ×5 (10:59→21:20)
[2019-12-30] MEDS: ASCORBIC ACID 250 MG TABLET (FP) PO SCH (11:31)
[2019-12-30] MEDS: SERTRALINE HCL 50 MG TABLET (FP) PO SCH (11:31)
[2019-12-30] MEDS: HYDROXYCHLOROQUINE SO4 200 MG TABLET (FP) PO SCH ×2 (11:31→22:22)
[2019-12-30] MEDS: GEMFIBROZIL 600 MG TABLET (FP) PO SCH ×2 (11:31→21:30)
[2019-12-30] MEDS ORDERED: GABAPENTIN 300 MG CAPSULE PO SCH (21:22)
[2019-12-30] MEDS: GABAPENTIN 300 MG CAPSULE PO SCH (21:30)
[2019-12-31] MEDS: CYCLOBENZAPRINE HCL 5 MG TABLET PO PRN ×2 (01:25→21:09)
[2019-12-31] MEDS: ACETAMINOPHEN 500 MG TABLET (FP) PO PRN ×3 (03:07→18:04)
[2019-12-31] MEDS: LIPASE/PROTEASE/AMYLASE 6,000 UNIT CAPSULE PO SCH ×3 (06:05→17:06)
[2019-12-31] MEDS: LEVOTHYROXINE NA 88 MCG TABLET (FP) PO SCH (06:05)
[2019-12-31 08:43] LABS: BASO % 0.9 % (0-2.0); EOS % 7.5 % (0-4.5); HEMATOCRIT 34.2 % (32.4-45.2); HEMOGLOBIN 11.9 GM/dL (10.7-15.3); LYMPH % 26.1 % (8-40); MCH 31.9 pg (25.7-33.7); MCHC 34.7 g/dl (32.0-36.0); MEAN CELL VOLUME 91.9 fl (80-96); MEAN PLT VOLUME 7.5 fl (7.5-11.1); NEUT % 56.5 % (42.8-82.8); PLATELET COUNT 259 K/MM3 (134-434); RBC 3.72 M/mm3 (3.60-5.2); RDW 13.1 % (11.6-15.6); WHITE BLOOD COUNT 7.3 K/mm3 (4.0-10.0)
[2019-12-31 08:58] LABS: CALCIUM 9.4 mg/dL (8.5-10.1)
[2019-12-31 08:59] LABS: BLOOD UREA NITROGEN 22.8 mg/dL (7-18)
[2019-12-31 09:02] LABS: CREATININE 0.5 mg/dL (0.55-1.3)
[2019-12-31] MEDS ORDERED: cefTRIAXone SODIUM 1 GM VIAL ONE (09:29)
[2019-12-31] MEDS ORDERED: DEXTROSE 5%-WATER - 50 ML IVPB ONE (09:30)
[2019-12-31] MEDS: CEFTRIAXONE 1 GM in DEXTROSE 5%-WATER - 50 ML IVPB SCH (09:34)
[2019-12-31] MEDS: metoPROLOL SUCCINATE 25 MG TAB.SR.24H (FP) PO SCH ×2 (09:36→21:08)
[2019-12-31] MEDS: ENOXAPARIN NA (PORCINE) 40 MG/0.4 ML DISP.SYRIN SQ SCH (09:36)
[2019-12-31] MEDS: DULoxetine HCL 30 MG CAPSULE.DR PO SCH (09:37)
[2019-12-31] MEDS: amLODIPine BESYLATE 5 MG TABLET (FP) PO SCH (09:37)
[2019-12-31] MEDS: predniSONE 5 MG TABLET (UD) PO SCH (09:37)
[2019-12-31] MEDS: GABAPENTIN 300 MG CAPSULE PO SCH ×2 (09:38→21:07)
[2019-12-31] MEDS: MULTIVITAMINS (DAILY MVI) TABLET (FP) PO SCH (09:38)
[2019-12-31] MEDS: FERROUS GLUCONATE 324 MG TAB (FP) PO SCH (09:38)
[2019-12-31] MEDS: CALCIUM 500MG/VIT-D 200 UNITS COMBO TABLET (FP) PO SCH ×2 (09:38→21:07)
[2019-12-31] MEDS: ASCORBIC ACID 250 MG TABLET (FP) PO SCH (09:39)
[2019-12-31] MEDS: SERTRALINE HCL 50 MG TABLET (FP) PO SCH (09:39)
[2019-12-31] MEDS: GEMFIBROZIL 600 MG TABLET (FP) PO SCH ×2 (09:49→21:07)
[2019-12-31] MEDS: HYDROXYCHLOROQUINE SO4 200 MG TABLET (FP) PO SCH ×2 (09:49→21:08)
[2019-12-31] MEDS ORDERED: PT OWN MED DRAWER 7, Y5N ONE ×2 (16:48→20:40)
[2020-01-01] MEDS: ACETAMINOPHEN 500 MG TABLET (FP) PO PRN ×3 (00:16→14:21)
[2020-01-01] MEDS: LIPASE/PROTEASE/AMYLASE 6,000 UNIT CAPSULE PO SCH ×3 (06:41→18:23)
[2020-01-01] MEDS: LEVOTHYROXINE NA 88 MCG TABLET (FP) PO SCH (06:41)
[2020-01-01] MEDS ORDERED: PT OWN MED DRAWER 7, Y5N ONE (10:08)
[2020-01-01] MEDS ORDERED: DEXTROSE 5%-WATER - 50 ML IVPB ONE (10:09)
[2020-01-01] MEDS ORDERED: cefTRIAXone SODIUM 1 GM VIAL ONE (10:09)
[2020-01-01] MEDS: HYDROXYCHLOROQUINE SO4 200 MG TABLET (FP) PO SCH (10:20)
[2020-01-01] MEDS: CEFTRIAXONE 1 GM in DEXTROSE 5%-WATER - 50 ML IVPB SCH (10:20)
[2020-01-01] MEDS: CALCIUM 500MG/VIT-D 200 UNITS COMBO TABLET (FP) PO SCH (10:20)
[2020-01-01] MEDS: ASCORBIC ACID 250 MG TABLET (FP) PO SCH (10:21)
[2020-01-01] MEDS: amLODIPine BESYLATE 5 MG TABLET (FP) PO SCH (10:21)
[2020-01-01] MEDS: ENOXAPARIN NA (PORCINE) 40 MG/0.4 ML DISP.SYRIN SQ SCH (10:21)
[2020-01-01] MEDS: GABAPENTIN 300 MG CAPSULE PO SCH (10:21)
[2020-01-01] MEDS: predniSONE 5 MG TABLET (UD) PO SCH (10:21)
[2020-01-01] MEDS: GEMFIBROZIL 600 MG TABLET (FP) PO SCH (10:21)
[2020-01-01] MEDS: metoPROLOL SUCCINATE 25 MG TAB.SR.24H (FP) PO SCH (10:21)
[2020-01-01] MEDS: FERROUS GLUCONATE 324 MG TAB (FP) PO SCH (10:21)
[2020-01-01] MEDS: SERTRALINE HCL 50 MG TABLET (FP) PO SCH (10:35)
[2020-01-01] MEDS: MULTIVITAMINS (DAILY MVI) TABLET (FP) PO SCH (10:35)
[2020-01-01] MEDS: DULoxetine HCL 30 MG CAPSULE.DR PO SCH (10:35)
[2020-01-01] MEDS: CYCLOBENZAPRINE HCL 5 MG TABLET PO PRN (14:21)
[2020-01-01 15:03] VITALS: BP 136/55; PULSE 61; TEMP 98.5
== END 2020-01-01 21:40 | DRG 552 ==
LOC: JER 09:15 → JERBED 13:21 → J6S 12-28 10:29
PROVIDERS: ATTEND Internal Medicine
DX: S32.10XA Unspecified fracture of sacrum, initial encounter for closed fracture (principal); N39.0 Urinary tract infection, site not specified; W19.XXXA Unspecified fall, initial encounter; Y93.9 Activity, unspecified; Y92.89 Other specified places as the place of occurrence of the external cause; Y99.9 Unspecified external cause status; I10 Essential (primary) hypertension; E78.5 Hyperlipidemia, unspecified; E03.9 Hypothyroidism, unspecified; F41.8 Other specified anxiety disorders; M79.7 Fibromyalgia; N32.81 Overactive bladder; M81.0 Age-related osteoporosis without current pathological fracture; S32.511D Fracture of superior rim of right pubis, subsequent encounter for fracture with routine healing; E11.9 Type 2 diabetes mellitus without complications
CPT/HCPCS: 36415; 72131-TC; 72192-TC; 76775-TC; 76856-TC; 80048; 80053; 81003; 83735; 84100; 85025; 85027; 85610; 85730; 86850; 86900; 86901; 87086; 93005; 93010; 97116-GP; 97162-GP; 99285-25; C9803; J0131; U0003

== ENCOUNTER 2020-04-18 08:00 | Inpatient (IN) | payer OTHER ==
[2020-04-18] MEDS ORDERED: LACTATED RINGERS SOLUTION 1000 ML INFUS.BAG IV ONE ×2 (08:32→09:55)
[2020-04-18] MEDS ORDERED: ACETAMINOPHEN 1000 MG/100 ML VIAL (NON FORMULARY) IVPB ONE (08:32)
[2020-04-18] MEDS ORDERED: ACETAMINOPHEN INJECTION 100 ML IVPB ONE ×2 (08:38→18:48)
[2020-04-18] MEDS ORDERED: SODIUM CHLORIDE 0.9% 500 ML INFUS.BAG IV ONE (08:56)
[2020-04-18] MEDS ORDERED: FLUCONAZOLE 50 MG TABLET PO ONE (08:59)
[2020-04-18 09:05] LABS: BASO % 0.4 % (0-2.0); EOS % 2.6 % (0-4.5); HEMATOCRIT 36.5 % (32.4-45.2); HEMOGLOBIN 12.4 GM/dL (10.7-15.3); LYMPH % 3.4 % (8-40); MCH 31.2 pg (25.7-33.7); MEAN CELL VOLUME 91.9 fl (80-96); MEAN PLT VOLUME 7.9 fl (7.5-11.1); MONO % 4.2 % (3.8-10.2); NEUT % 89.4 % (42.8-82.8); PLATELET COUNT 228 K/MM3 (134-434); RBC 3.98 M/mm3 (3.60-5.2); RDW 12.7 % (11.6-15.6); WHITE BLOOD COUNT 11.4 K/mm3 (4.0-10.0)
[2020-04-18 09:09] LABS: URINE APPEARANCE CLEAR; URINE BILIRUBIN NEGATIVE (NEGATIVE); URINE COLOR YELLOW; URINE GLUCOSE (UA) 3+ (NEGATIVE); URINE KETONE NEGATIVE (NEGATIVE); URINE LEUK ESTERASE TRACE (NEGATIVE); URINE NITRITE NEGATIVE (NEGATIVE); URINE PROTEIN 1+ (NEGATIVE); URINE UROBILINOGEN 0.2 mg/dL (0.2-1.0)
[2020-04-18] MEDS ORDERED: FLUCONAZOLE 150 MG TABLET PO ONE (09:13)
[2020-04-18 09:16] LABS: INR 1.07 (0.83-1.09); PROTHROMBIN TIME (PATIENT) 12.9 SEC (9.7-13.0)
[2020-04-18 09:19] LABS: ACTIVATED PTT 28.9 SECONDS (25.2-36.5)
[2020-04-18 09:33] LABS: CHLORIDE 96 mmol/L (98-107); POTASSIUM 3.9 mmol/L (3.5-5.1); SODIUM 132 mmol/L (136-145)
[2020-04-18 09:35] LABS: CALCIUM 9.3 mg/dL (8.5-10.1)
[2020-04-18 09:36] LABS: ALBUMIN 3.6 g/dl (3.4-5.0); ANION GAP 9 MMOL/L (8-16); BLOOD UREA NITROGEN 23.9 mg/dL (7-18); CO2 26 mmol/L (21-32)
[2020-04-18 09:38] LABS: BILIRUBIN,DIRECT 0.2 mg/dL (0.0-0.2)
[2020-04-18 09:40] LABS: BILIRUBIN,TOTAL 0.7 mg/dL (0.2-1); CREATININE 0.8 mg/dL (0.55-1.3); SGOT/AST 9 U/L (15-37); SGPT/ALT 13 U/L (13-61)
[2020-04-18 09:42] LABS: ALK PHOS 123 U/L (45-117); TOT PROT 7.1 g/dl (6.4-8.2)
[2020-04-18 09:49] LABS: LDH 210 U/L (84-246)
[2020-04-18 09:50] LABS: URINE RBC 48 /uL (0-23.9); URINE WBC 445.9 /uL (0-25.8)
[2020-04-18 09:51] LABS: EPI CELLS 1.9 /uL (0-25.1); HYALINE CASTS 3.08 /uL (0-3.1); URINE BACTERIA 1773 /uL (0-1359)
[2020-04-18 09:53] LABS: GLUCOSE,RANDOM 445 mg/dL (74-106)
[2020-04-18] MEDS ORDERED: CEFTRIAXONE 1 GM/50 ML BAG ONE (09:58)
[2020-04-18] MEDS ORDERED: Insulin (LOG) Aspart 100 UNITS/ML VIAL SQ ONE (10:57)
[2020-04-18] MEDS: SODIUM CHLORIDE 1,000 ML IV SCH (22:08)
[2020-04-18] MEDS: INSULIN SLIDING SCALE (NOVOLOG) 1 VIAL SQ SCH (22:09)
[2020-04-18] MEDS: CALCIUM (OYSTER SHELL) 500 MG TABLET (FP) PO SCH (22:09)
[2020-04-18] MEDS: HEPARIN NA (PORCINE) 5,000 UNITS/ML 1ML VIAL SQ SCH (22:09)
[2020-04-18] MEDS: HYDROXYCHLOROQUINE SO4 200 MG TABLET (FP) PO SCH (22:09)
[2020-04-18] MEDS: INSULIN (LEVEMIR) 100 UNITS/ML UNITS SQ SCH (22:10)
[2020-04-18] MEDS: ACETAMINOPHEN 1000 MG/100 ML VIAL (NON FORMULARY) IVPB PRN (23:22)
[2020-04-19] MEDS: HEPARIN NA (PORCINE) 5,000 UNITS/ML 1ML VIAL SQ SCH ×3 (07:11→22:31)
[2020-04-19] MEDS: GEMFIBROZIL 600 MG TABLET (FP) PO SCH ×2 (07:11→17:00)
[2020-04-19] MEDS: INSULIN SLIDING SCALE (NOVOLOG) 1 VIAL SQ SCH ×4 (07:12→22:31)
[2020-04-19 08:44] LABS: BASO % 1.1 % (0-2.0); EOS % 0.8 % (0-4.5); HEMATOCRIT 34.6 % (32.4-45.2); HEMOGLOBIN 11.6 GM/dL (10.7-15.3); LYMPH % 31.4 % (8-40); MCH 30.4 pg (25.7-33.7); MCHC 33.5 g/dl (32.0-36.0); MEAN CELL VOLUME 90.5 fl (80-96); MEAN PLT VOLUME 7.4 fl (7.5-11.1); NEUT % 57.7 % (42.8-82.8); PLATELET COUNT 354 K/MM3 (134-434); RBC 3.83 M/mm3 (3.60-5.2); RDW 13.4 % (11.6-15.6); WHITE BLOOD COUNT 7.9 K/mm3 (4.0-10.0)
[2020-04-19 09:04] LABS: POTASSIUM 3.9 mmol/L (3.5-5.1)
[2020-04-19 09:06] LABS: CALCIUM 8.8 mg/dL (8.5-10.1)
[2020-04-19 09:07] LABS: ALBUMIN 3.6 g/dl (3.4-5.0); BLOOD UREA NITROGEN 11.4 mg/dL (7-18)
[2020-04-19 09:10] LABS: CREATININE 0.7 mg/dL (0.55-1.3)
[2020-04-19 09:12] LABS: BILIRUBIN,TOTAL 0.5 mg/dL (0.2-1); TOT PROT 6.8 g/dl (6.4-8.2)
[2020-04-19] MEDS ORDERED: metoPROLOL SUCCINATE 25 MG TAB.SR.24H (FP) PO SCH (10:00)
[2020-04-19] MEDS ORDERED: POLYETHYLENE GLYCOL 3350 119 GM BTL PO SCH (10:00)
[2020-04-19] MEDS ORDERED: CEFTRIAXONE 1 GM in DEXTROSE 5%-WATER - 50 ML IVPB SCH (10:00)
[2020-04-19] MEDS ORDERED: DULoxetine HCL 30 MG CAPSULE.DR PO SCH (10:00)
[2020-04-19] MEDS: HYDROXYCHLOROQUINE SO4 200 MG TABLET (FP) PO SCH ×2 (10:09→22:36)
[2020-04-19] MEDS: SERTRALINE HCL 50 MG TABLET (FP) PO SCH (10:09)
[2020-04-19] MEDS: CALCIUM (OYSTER SHELL) 500 MG TABLET (FP) PO SCH ×2 (10:09→22:32)
[2020-04-19] MEDS: SODIUM CHLORIDE 1,000 ML IV SCH (10:10)
[2020-04-19] MEDS: ACETAMINOPHEN 1000 MG/100 ML VIAL (NON FORMULARY) IVPB PRN ×2 (10:10→17:09)
[2020-04-19] MEDS: amLODIPine BESYLATE 5 MG TABLET (FP) PO SCH (11:35)
[2020-04-19] MEDS: INSULIN (LEVEMIR) 100 UNITS/ML UNITS SQ SCH ×2 (11:35→22:31)
[2020-04-19] MEDS ORDERED: CEFTRIAXONE 2 GM in DEXTROSE 5%-WATER 100 ML IVPB SCH (12:45)
[2020-04-19] MEDS ORDERED: PT OWN MED DRAWER 7, Y5N ONE (21:25)
[2020-04-20] MEDS ORDERED: ACETAMINOPHEN 325 MG TABLET (FP) PO ONE (01:30)
[2020-04-20] MEDS: SODIUM CHLORIDE 1,000 ML IV SCH ×3 (03:30→22:07)
[2020-04-20] MEDS ORDERED: PT OWN MED DRAWER 7, Y5N ONE ×5 (06:48→17:39)
[2020-04-20] MEDS: HEPARIN NA (PORCINE) 5,000 UNITS/ML 1ML VIAL SQ SCH ×3 (06:53→22:01)
[2020-04-20] MEDS: INSULIN SLIDING SCALE (NOVOLOG) 1 VIAL SQ SCH ×4 (06:53→22:06)
[2020-04-20] MEDS: LEVOTHYROXINE NA 88 MCG TABLET (FP) PO SCH (06:53)
[2020-04-20] MEDS: GEMFIBROZIL 600 MG TABLET (FP) PO SCH ×2 (06:53→17:38)
[2020-04-20 09:26] LABS: BASO % 0.6 % (0-2.0); EOS % 2.3 % (0-4.5); HEMATOCRIT 34.9 % (32.4-45.2); LYMPH % 9.7 % (8-40); MCH 31.5 pg (25.7-33.7); MCHC 34.4 g/dl (32.0-36.0); MEAN CELL VOLUME 91.7 fl (80-96); MEAN PLT VOLUME 8.5 fl (7.5-11.1); MONO % 9.7 % (3.8-10.2); NEUT % 77.7 % (42.8-82.8); PLATELET COUNT 179 K/MM3 (134-434); POTASSIUM 3.1 mmol/L (3.5-5.1); RBC 3.81 M/mm3 (3.60-5.2); RDW 12.4 % (11.6-15.6); WHITE BLOOD COUNT 5.9 K/mm3 (4.0-10.0)
[2020-04-20 09:27] LABS: CALCIUM 8.6 mg/dL (8.5-10.1)
[2020-04-20 09:28] LABS: MAGNESIUM 2.1 mg/dL (1.8-2.4)
[2020-04-20 09:31] LABS: CREATININE 0.5 mg/dL (0.55-1.3); PHOSPHOROUS 2.6 mg/dL (2.5-4.9)
[2020-04-20] MEDS ORDERED: PATIENT'S OWN MEDICATION (NON-FORMULARY) (Sertraline Hcl [Zoloft] 100 MG Tablet) PO SCH (11:00)
[2020-04-20] MEDS ORDERED: GABAPENTIN 100 MG CAPSULE PO SCH (11:00)
[2020-04-20] MEDS ORDERED: ZOLPIDEM TARTRATE 5 MG TABLET PO SCH (11:15)
[2020-04-20] MEDS ORDERED: ZOLPIDEM TARTRATE 5 MG TABLET PO PRN ×2 (11:15→13:03)
[2020-04-20] MEDS ORDERED: DEXTROSE 5%-WATER 100 ML IVPB ONE (11:20)
[2020-04-20] MEDS: CEFTRIAXONE 2 GM in DEXTROSE 5%-WATER 100 ML IVPB SCH (11:47)
[2020-04-20] MEDS: amLODIPine BESYLATE 5 MG TABLET (FP) PO SCH (11:47)
[2020-04-20] MEDS: CALCIUM (OYSTER SHELL) 500 MG TABLET (FP) PO SCH ×2 (11:47→22:01)
[2020-04-20] MEDS: SERTRALINE HCL 50 MG TABLET (FP) PO SCH (11:47)
[2020-04-20] MEDS ORDERED: ACETAMINOPHEN 325 MG TABLET (FP) PO PRN (11:48)
[2020-04-20] MEDS: HYDROXYCHLOROQUINE SO4 200 MG TABLET (FP) PO SCH ×2 (12:06→21:57)
[2020-04-20] MEDS: INSULIN (LEVEMIR) 100 UNITS/ML UNITS SQ SCH ×2 (12:16→22:01)
[2020-04-20] MEDS: oxyCODONE HCL 5 MG TABLET PO PRN ×2 (13:03→20:24)
[2020-04-20] MEDS: ACETAMINOPHEN 325 MG TABLET (FP) PO PRN ×2 (13:06→20:29)
[2020-04-20] MEDS: ARTIFICIAL TEARS (POLYVINYL ALCOHOL) OPTH DROPS OD SCH ×3 (14:19→22:48)
[2020-04-20] MEDS: GABAPENTIN 300 MG CAPSULE PO SCH ×2 (14:22→21:57)
[2020-04-20] MEDS ORDERED: POTASSIUM CHLORIDE TABS 20 MEQ TABLET.ER (FP) PO ONE (15:15)
[2020-04-20] MEDS: LIPASE/PROTEASE/AMYLASE 6,000 UNIT CAPSULE PO SCH (17:39)
[2020-04-20] MEDS: POLYETHYLENE GLYCOL 3350 119 GM BTL PO SCH (22:06)
[2020-04-20] MEDS: metoPROLOL SUCCINATE 25 MG TAB.SR.24H (FP) PO SCH (22:10)
[2020-04-21] MEDS: ACETAMINOPHEN 325 MG TABLET (FP) PO PRN ×4 (02:19→22:23)
[2020-04-21] MEDS: oxyCODONE HCL 5 MG TABLET PO PRN ×4 (02:19→22:23)
[2020-04-21] MEDS ORDERED: PT OWN MED DRAWER 7, Y5N ONE ×4 (02:43→21:21)
[2020-04-21] MEDS: LEVOTHYROXINE NA 88 MCG TABLET (FP) PO SCH (06:48)
[2020-04-21] MEDS: HEPARIN NA (PORCINE) 5,000 UNITS/ML 1ML VIAL SQ SCH ×3 (06:48→21:25)
[2020-04-21] MEDS: GABAPENTIN 300 MG CAPSULE PO SCH ×3 (06:48→21:27)
[2020-04-21] MEDS: GEMFIBROZIL 600 MG TABLET (FP) PO SCH ×2 (06:48→17:06)
[2020-04-21] MEDS: SODIUM CHLORIDE 1,000 ML IV SCH (06:50)
[2020-04-21] MEDS: INSULIN (LEVEMIR) 100 UNITS/ML UNITS SQ SCH ×2 (06:53→21:25)
[2020-04-21] MEDS: INSULIN SLIDING SCALE (NOVOLOG) 1 VIAL SQ SCH ×4 (06:53→21:28)
[2020-04-21] MEDS ORDERED: DEXTROSE 5%-WATER 100 ML IVPB ONE (08:44)
[2020-04-21] MEDS: DULoxetine HCL 30 MG CAPSULE.DR PO SCH (09:02)
[2020-04-21] MEDS: CALCIUM (OYSTER SHELL) 500 MG TABLET (FP) PO SCH ×2 (09:03→21:27)
[2020-04-21] MEDS: metoPROLOL SUCCINATE 25 MG TAB.SR.24H (FP) PO SCH ×2 (09:03→21:30)
[2020-04-21] MEDS: amLODIPine BESYLATE 5 MG TABLET (FP) PO SCH (09:03)
[2020-04-21] MEDS: clonazePAM 0.5 MG TABLET PO SCH (09:03)
[2020-04-21] MEDS: SERTRALINE HCL 50 MG TABLET (FP) PO SCH (09:03)
[2020-04-21] MEDS: ARTIFICIAL TEARS (POLYVINYL ALCOHOL) OPTH DROPS OD SCH ×4 (09:05→21:25)
[2020-04-21] MEDS: POLYETHYLENE GLYCOL 3350 119 GM BTL PO SCH ×2 (09:09→21:31)
[2020-04-21] MEDS: CEFTRIAXONE 2 GM in DEXTROSE 5%-WATER 100 ML IVPB SCH (09:10)
[2020-04-21 09:21] LABS: HEMATOCRIT 31.6 % (32.4-45.2); HEMOGLOBIN 10.7 GM/dL (10.7-15.3); MCH 31.3 pg (25.7-33.7); MCHC 33.7 g/dl (32.0-36.0); PLATELET COUNT 190 K/MM3 (134-434); RDW 12.5 % (11.6-15.6); WHITE BLOOD COUNT 5.8 K/mm3 (4.0-10.0)
[2020-04-21] MEDS: HYDROXYCHLOROQUINE SO4 200 MG TABLET (FP) PO SCH ×2 (09:34→21:29)
[2020-04-21] MEDS: LIPASE/PROTEASE/AMYLASE 6,000 UNIT CAPSULE PO SCH ×3 (09:34→17:07)
[2020-04-21 09:43] LABS: POTASSIUM 4.6 mmol/L (3.5-5.1)
[2020-04-21 09:48] LABS: BLOOD UREA NITROGEN 13.6 mg/dL (7-18)
[2020-04-21 09:51] LABS: CALCIUM 8.7 mg/dL (8.5-10.1)
[2020-04-21 09:54] LABS: CREATININE 0.5 mg/dL (0.55-1.3)
[2020-04-21] MEDS: LACTOBACILLUS ACIDOPHILUS 1 TABLET PO SCH (14:26)
[2020-04-21] MEDS ORDERED: INSULIN (NOVOLOG) ASPART 100 UNITS/ML 10ML VIAL ONE ×2 (18:32→21:21)
[2020-04-21] MEDS ORDERED: HYDROCORTISONE 0.5% TOPICAL CREAM 30 GM TUBE TP ONE (23:07)
[2020-04-22] MEDS: CYCLOBENZAPRINE HCL 5 MG TABLET PO PRN (00:59)
[2020-04-22] MEDS ORDERED: PT OWN MED DRAWER 7, Y5N ONE ×6 (06:29→18:08)
[2020-04-22] MEDS: LEVOTHYROXINE NA 88 MCG TABLET (FP) PO SCH (06:30)
[2020-04-22] MEDS: HEPARIN NA (PORCINE) 5,000 UNITS/ML 1ML VIAL SQ SCH ×3 (06:31→21:22)
[2020-04-22] MEDS: SODIUM CHLORIDE 1,000 ML IV SCH ×3 (06:31→20:29)
[2020-04-22] MEDS: GEMFIBROZIL 600 MG TABLET (FP) PO SCH ×2 (06:31→18:10)
[2020-04-22] MEDS: GABAPENTIN 300 MG CAPSULE PO SCH ×3 (06:31→21:22)
[2020-04-22] MEDS: INSULIN (LEVEMIR) 100 UNITS/ML UNITS SQ SCH ×2 (06:32→21:22)
[2020-04-22] MEDS ORDERED: INSULIN (NOVOLOG) ASPART 100 UNITS/ML 10ML VIAL ONE ×2 (06:32→21:11)
[2020-04-22] MEDS: INSULIN SLIDING SCALE (NOVOLOG) 1 VIAL SQ SCH ×5 (06:33→21:23)
[2020-04-22] MEDS: LIPASE/PROTEASE/AMYLASE 6,000 UNIT CAPSULE PO SCH ×3 (08:20→18:10)
[2020-04-22] MEDS: oxyCODONE HCL 5 MG TABLET PO PRN ×2 (08:23→20:28)
[2020-04-22] MEDS: ACETAMINOPHEN 325 MG TABLET (FP) PO PRN ×2 (08:25→20:29)
[2020-04-22] MEDS ORDERED: DEXTROSE 5%-WATER 100 ML IVPB ONE (09:25)
[2020-04-22] MEDS: CEFTRIAXONE 2 GM in DEXTROSE 5%-WATER 100 ML IVPB SCH (09:26)
[2020-04-22] MEDS: LACTOBACILLUS ACIDOPHILUS 1 TABLET PO SCH (09:26)
[2020-04-22] MEDS: SERTRALINE HCL 50 MG TABLET (FP) PO SCH (09:27)
[2020-04-22] MEDS: DULoxetine HCL 30 MG CAPSULE.DR PO SCH (09:27)
[2020-04-22] MEDS: CALCIUM (OYSTER SHELL) 500 MG TABLET (FP) PO SCH ×2 (09:27→21:22)
[2020-04-22] MEDS: amLODIPine BESYLATE 5 MG TABLET (FP) PO SCH (09:27)
[2020-04-22] MEDS: clonazePAM 0.5 MG TABLET PO SCH (09:28)
[2020-04-22] MEDS: metoPROLOL SUCCINATE 25 MG TAB.SR.24H (FP) PO SCH ×2 (09:28→21:24)
[2020-04-22] MEDS: POLYETHYLENE GLYCOL 3350 119 GM BTL PO SCH ×2 (09:29→21:22)
[2020-04-22] MEDS: HYDROXYCHLOROQUINE SO4 200 MG TABLET (FP) PO SCH (09:30)
[2020-04-22] MEDS: ARTIFICIAL TEARS (POLYVINYL ALCOHOL) OPTH DROPS OD SCH ×4 (09:31→21:23)
[2020-04-23] MEDS: ACETAMINOPHEN 325 MG TABLET (FP) PO PRN ×2 (03:06→14:01)
[2020-04-23] MEDS: oxyCODONE HCL 5 MG TABLET PO PRN ×4 (03:06→21:03)
[2020-04-23] MEDS ORDERED: PT OWN MED DRAWER 7, Y5N ONE ×4 (06:30→16:51)
[2020-04-23] MEDS: GABAPENTIN 300 MG CAPSULE PO SCH ×3 (06:53→21:04)
[2020-04-23] MEDS: GEMFIBROZIL 600 MG TABLET (FP) PO SCH ×2 (06:53→16:52)
[2020-04-23] MEDS: LEVOTHYROXINE NA 88 MCG TABLET (FP) PO SCH (06:54)
[2020-04-23] MEDS: INSULIN (LEVEMIR) 100 UNITS/ML UNITS SQ SCH ×2 (06:54→21:05)
[2020-04-23] MEDS: INSULIN SLIDING SCALE (NOVOLOG) 1 VIAL SQ SCH ×4 (06:54→21:06)
[2020-04-23] MEDS: HEPARIN NA (PORCINE) 5,000 UNITS/ML 1ML VIAL SQ SCH ×3 (06:54→21:05)
[2020-04-23 09:23] LABS: BASO % 0.8 % (0-2.0); EOS % 7.4 % (0-4.5); HEMATOCRIT 29.8 % (32.4-45.2); HEMOGLOBIN 10.2 GM/dL (10.7-15.3); LYMPH % 21.9 % (8-40); MCH 31.4 pg (25.7-33.7); MCHC 34.3 g/dl (32.0-36.0); MEAN CELL VOLUME 91.8 fl (80-96); MEAN PLT VOLUME 7.9 fl (7.5-11.1); MONO % 12.2 % (3.8-10.2); NEUT % 57.7 % (42.8-82.8); PLATELET COUNT 237 K/MM3 (134-434); RBC 3.25 M/mm3 (3.60-5.2); RDW 12.5 % (11.6-15.6); WHITE BLOOD COUNT 6.1 K/mm3 (4.0-10.0)
[2020-04-23] MEDS ORDERED: DEXTROSE 5%-WATER 100 ML IVPB ONE (09:28)
[2020-04-23] MEDS: CEFTRIAXONE 2 GM in DEXTROSE 5%-WATER 100 ML IVPB SCH (09:31)
[2020-04-23] MEDS: DULoxetine HCL 30 MG CAPSULE.DR PO SCH (09:34)
[2020-04-23] MEDS: LACTOBACILLUS ACIDOPHILUS 1 TABLET PO SCH (09:34)
[2020-04-23] MEDS: CALCIUM (OYSTER SHELL) 500 MG TABLET (FP) PO SCH ×2 (09:35→21:04)
[2020-04-23] MEDS: amLODIPine BESYLATE 5 MG TABLET (FP) PO SCH (09:35)
[2020-04-23] MEDS: metoPROLOL SUCCINATE 25 MG TAB.SR.24H (FP) PO SCH ×2 (09:35→21:07)
[2020-04-23] MEDS: clonazePAM 0.5 MG TABLET PO SCH (09:36)
[2020-04-23] MEDS: SERTRALINE HCL 50 MG TABLET (FP) PO SCH (09:36)
[2020-04-23] MEDS: LIPASE/PROTEASE/AMYLASE 6,000 UNIT CAPSULE PO SCH ×3 (09:37→16:52)
[2020-04-23] MEDS: POLYETHYLENE GLYCOL 3350 119 GM BTL PO SCH ×2 (09:38→21:05)
[2020-04-23] MEDS: ARTIFICIAL TEARS (POLYVINYL ALCOHOL) OPTH DROPS OD SCH ×4 (09:38→21:05)
[2020-04-23 10:07] LABS: POTASSIUM 5.2 mmol/L (3.5-5.1)
[2020-04-23 10:34] LABS: ALBUMIN 2.6 g/dl (3.4-5.0); CALCIUM 8.8 mg/dL (8.5-10.1)
[2020-04-23 10:37] LABS: CREATININE 0.6 mg/dL (0.55-1.3); PHOSPHOROUS 3.6 mg/dL (2.5-4.9)
[2020-04-23 10:39] LABS: BILIRUBIN,TOTAL 0.6 mg/dL (0.2-1); TOT PROT 5.8 g/dl (6.4-8.2)
[2020-04-23] MEDS: SODIUM CHLORIDE 1,000 ML IV SCH (21:05)
[2020-04-24] MEDS: CYCLOBENZAPRINE HCL 5 MG TABLET PO PRN
[2020-04-24] MEDS ORDERED: PT OWN MED DRAWER 7, Y5N ONE ×2 (05:43→09:42)
[2020-04-24] MEDS: GABAPENTIN 300 MG CAPSULE PO SCH ×3 (06:41→21:33)
[2020-04-24] MEDS: LEVOTHYROXINE NA 88 MCG TABLET (FP) PO SCH (06:41)
[2020-04-24] MEDS: HEPARIN NA (PORCINE) 5,000 UNITS/ML 1ML VIAL SQ SCH ×3 (06:42→21:44)
[2020-04-24] MEDS: INSULIN SLIDING SCALE (NOVOLOG) 1 VIAL SQ SCH ×4 (06:42→21:45)
[2020-04-24] MEDS: INSULIN (LEVEMIR) 100 UNITS/ML UNITS SQ SCH ×2 (06:42→21:44)
[2020-04-24] MEDS: ACETAMINOPHEN 325 MG TABLET (FP) PO PRN ×2 (06:49→21:39)
[2020-04-24] MEDS: oxyCODONE HCL 5 MG TABLET PO PRN ×3 (06:50→21:31)
[2020-04-24] MEDS: GEMFIBROZIL 600 MG TABLET (FP) PO SCH ×2 (06:51→16:43)
[2020-04-24 09:27] LABS: BASO % 0.8 % (0-2.0); EOS % 7.5 % (0-4.5); LYMPH % 17.2 % (8-40); MCH 31.3 pg (25.7-33.7); MCHC 34.3 g/dl (32.0-36.0); MEAN CELL VOLUME 91.1 fl (80-96); MEAN PLT VOLUME 8.1 fl (7.5-11.1); MONO % 10.6 % (3.8-10.2); NEUT % 63.9 % (42.8-82.8); PLATELET COUNT 273 K/MM3 (134-434); RBC 3.18 M/mm3 (3.60-5.2); RDW 12.5 % (11.6-15.6); WHITE BLOOD COUNT 7.2 K/mm3 (4.0-10.0)
[2020-04-24] MEDS ORDERED: DEXTROSE 5%-WATER 100 ML IVPB ONE (09:42)
[2020-04-24] MEDS: SERTRALINE HCL 50 MG TABLET (FP) PO SCH (09:47)
[2020-04-24] MEDS: amLODIPine BESYLATE 5 MG TABLET (FP) PO SCH (09:48)
[2020-04-24] MEDS: clonazePAM 0.5 MG TABLET PO SCH (09:48)
[2020-04-24] MEDS: POLYETHYLENE GLYCOL 3350 119 GM BTL PO SCH ×2 (09:48→21:33)
[2020-04-24] MEDS: metoPROLOL SUCCINATE 25 MG TAB.SR.24H (FP) PO SCH ×3 (09:48→21:44)
[2020-04-24] MEDS: LACTOBACILLUS ACIDOPHILUS 1 TABLET PO SCH (09:49)
[2020-04-24] MEDS: CEFTRIAXONE 2 GM in DEXTROSE 5%-WATER 100 ML IVPB SCH (09:49)
[2020-04-24] MEDS: CALCIUM (OYSTER SHELL) 500 MG TABLET (FP) PO SCH ×2 (09:49→21:33)
[2020-04-24] MEDS: DULoxetine HCL 30 MG CAPSULE.DR PO SCH (09:49)
[2020-04-24] MEDS: LIPASE/PROTEASE/AMYLASE 6,000 UNIT CAPSULE PO SCH ×3 (09:50→16:43)
[2020-04-24 09:57] LABS: POTASSIUM 3.8 mmol/L (3.5-5.1)
[2020-04-24 10:02] LABS: CALCIUM 8.9 mg/dL (8.5-10.1)
[2020-04-24] MEDS: ARTIFICIAL TEARS (POLYVINYL ALCOHOL) OPTH DROPS OD SCH ×4 (10:02→21:32)
[2020-04-24 10:03] LABS: ALBUMIN 2.6 g/dl (3.4-5.0); BLOOD UREA NITROGEN 11.4 mg/dL (7-18); MAGNESIUM 1.8 mg/dL (1.8-2.4)
[2020-04-24 10:06] LABS: CREATININE 0.5 mg/dL (0.55-1.3); PHOSPHOROUS 3.6 mg/dL (2.5-4.9)
[2020-04-24 10:07] LABS: BILIRUBIN,TOTAL 0.6 mg/dL (0.2-1); TOT PROT 5.9 g/dl (6.4-8.2)
[2020-04-24 10:32] LABS: ANISOCYTOSIS 1+; MACROCYTOSIS 0; PLATELET ESTIMATE NORMAL
[2020-04-24 19:04] VITALS: BMI 25.4
[2020-04-24] MEDS: SODIUM CHLORIDE 1,000 ML IV SCH (21:32)
[2020-04-25] MEDS: HEPARIN NA (PORCINE) 5,000 UNITS/ML 1ML VIAL SQ SCH ×3 (05:55→22:34)
[2020-04-25] MEDS: GABAPENTIN 300 MG CAPSULE PO SCH ×3 (05:56→22:35)
[2020-04-25] MEDS: LEVOTHYROXINE NA 88 MCG TABLET (FP) PO SCH (05:59)
[2020-04-25] MEDS: GEMFIBROZIL 600 MG TABLET (FP) PO SCH ×2 (06:15→17:30)
[2020-04-25] MEDS: INSULIN SLIDING SCALE (NOVOLOG) 1 VIAL SQ SCH ×4 (07:01→22:37)
[2020-04-25] MEDS: INSULIN (LEVEMIR) 100 UNITS/ML UNITS SQ SCH ×2 (07:02→22:36)
[2020-04-25 09:10] LABS: BASO % 0.8 % (0-2.0); EOS % 2.5 % (0-4.5); HEMATOCRIT 33.1 % (32.4-45.2); HEMOGLOBIN 11.4 GM/dL (10.7-15.3); MCH 31.6 pg (25.7-33.7); MCHC 34.5 g/dl (32.0-36.0); MEAN CELL VOLUME 91.4 fl (80-96); MEAN PLT VOLUME 7.6 fl (7.5-11.1); NEUT % 69.7 % (42.8-82.8); PLATELET COUNT 351 K/MM3 (134-434); RBC 3.62 M/mm3 (3.60-5.2); RDW 12.6 % (11.6-15.6)
[2020-04-25] MEDS ORDERED: PT OWN MED DRAWER 7, Y5N ONE ×4 (09:16→18:06)
[2020-04-25] MEDS ORDERED: DEXTROSE 5%-WATER 100 ML IVPB ONE (09:16)
[2020-04-25 09:22] LABS: POTASSIUM 4.2 mmol/L (3.5-5.1)
[2020-04-25 09:24] LABS: ALBUMIN 2.9 g/dl (3.4-5.0); BLOOD UREA NITROGEN 15.1 mg/dL (7-18); CALCIUM 9.5 mg/dL (8.5-10.1); MAGNESIUM 2.1 mg/dL (1.8-2.4)
[2020-04-25 09:28] LABS: CREATININE 0.5 mg/dL (0.55-1.3)
[2020-04-25 09:29] LABS: BILIRUBIN,TOTAL 0.2 mg/dL (0.2-1); TOT PROT 6.5 g/dl (6.4-8.2)
[2020-04-25] MEDS: LIPASE/PROTEASE/AMYLASE 6,000 UNIT CAPSULE PO SCH ×3 (09:29→17:30)
[2020-04-25] MEDS: metoPROLOL SUCCINATE 25 MG TAB.SR.24H (FP) PO SCH ×2 (09:29→22:37)
[2020-04-25] MEDS: LACTOBACILLUS ACIDOPHILUS 1 TABLET PO SCH (09:32)
[2020-04-25] MEDS: SERTRALINE HCL 50 MG TABLET (FP) PO SCH (09:32)
[2020-04-25] MEDS: DULoxetine HCL 30 MG CAPSULE.DR PO SCH (09:32)
[2020-04-25] MEDS: clonazePAM 0.5 MG TABLET PO SCH (09:32)
[2020-04-25] MEDS: amLODIPine BESYLATE 5 MG TABLET (FP) PO SCH (09:33)
[2020-04-25] MEDS: CALCIUM (OYSTER SHELL) 500 MG TABLET (FP) PO SCH ×2 (09:33→22:35)
[2020-04-25] MEDS: POLYETHYLENE GLYCOL 3350 119 GM BTL PO SCH ×2 (09:34→22:36)
[2020-04-25] MEDS: CEFTRIAXONE 2 GM in DEXTROSE 5%-WATER 100 ML IVPB SCH (09:36)
[2020-04-25] MEDS: ARTIFICIAL TEARS (POLYVINYL ALCOHOL) OPTH DROPS OD SCH ×4 (09:42→22:35)
[2020-04-25] MEDS: oxyCODONE HCL 5 MG TABLET PO PRN ×2 (09:46→15:06)
[2020-04-25] MEDS: ACETAMINOPHEN 325 MG TABLET (FP) PO PRN (09:48)
[2020-04-25 11:59] LABS: ANISOCYTOSIS 0; MACROCYTOSIS 0; PLATELET ESTIMATE NORMAL
[2020-04-25] MEDS: CYCLOBENZAPRINE HCL 5 MG TABLET PO PRN (22:35)
[2020-04-26] MEDS ORDERED: oxyCODONE HCL 5 MG TABLET PO PRN (05:17)
[2020-04-26] MEDS ORDERED: PT OWN MED DRAWER 7, Y5N ONE ×2 (06:53→19:14)
[2020-04-26] MEDS: LEVOTHYROXINE NA 88 MCG TABLET (FP) PO SCH (06:56)
[2020-04-26] MEDS: HEPARIN NA (PORCINE) 5,000 UNITS/ML 1ML VIAL SQ SCH ×3 (06:56→21:57)
[2020-04-26] MEDS: GABAPENTIN 300 MG CAPSULE PO SCH ×3 (06:56→21:55)
[2020-04-26] MEDS: INSULIN (LEVEMIR) 100 UNITS/ML UNITS SQ SCH ×2 (06:56→21:57)
[2020-04-26] MEDS: INSULIN SLIDING SCALE (NOVOLOG) 1 VIAL SQ SCH ×4 (06:57→22:02)
[2020-04-26] MEDS: GEMFIBROZIL 600 MG TABLET (FP) PO SCH ×2 (06:57→15:41)
[2020-04-26] MEDS: ACETAMINOPHEN 325 MG TABLET (FP) PO PRN ×3 (06:58→21:54)
[2020-04-26] MEDS ORDERED: DEXTROSE 5%-WATER 100 ML IVPB ONE (10:00)
[2020-04-26] MEDS: CEFTRIAXONE 2 GM in DEXTROSE 5%-WATER 100 ML IVPB SCH (10:48)
[2020-04-26] MEDS: metoPROLOL SUCCINATE 25 MG TAB.SR.24H (FP) PO SCH ×2 (10:48→21:56)
[2020-04-26] MEDS: LIPASE/PROTEASE/AMYLASE 6,000 UNIT CAPSULE PO SCH ×3 (10:49→17:26)
[2020-04-26] MEDS: clonazePAM 0.5 MG TABLET PO SCH (10:50)
[2020-04-26] MEDS: amLODIPine BESYLATE 5 MG TABLET (FP) PO SCH (10:50)
[2020-04-26] MEDS: LACTOBACILLUS ACIDOPHILUS 1 TABLET PO SCH (10:50)
[2020-04-26] MEDS: CALCIUM (OYSTER SHELL) 500 MG TABLET (FP) PO SCH ×2 (10:50→21:55)
[2020-04-26] MEDS: SERTRALINE HCL 50 MG TABLET (FP) PO SCH (10:50)
[2020-04-26] MEDS: DULoxetine HCL 30 MG CAPSULE.DR PO SCH (10:50)
[2020-04-26] MEDS: SODIUM CHLORIDE 1,000 ML IV SCH (10:51)
[2020-04-26] MEDS: ARTIFICIAL TEARS (POLYVINYL ALCOHOL) OPTH DROPS OD SCH ×4 (10:52→21:59)
[2020-04-26] MEDS: POLYETHYLENE GLYCOL 3350 119 GM BTL PO SCH ×2 (10:54→21:56)
[2020-04-26] MEDS ORDERED: BENZOCAINE 20 % GEL TUBE MM PRN (13:34)
[2020-04-26] MEDS: CYCLOBENZAPRINE HCL 5 MG TABLET PO PRN (15:43)
[2020-04-26] MEDS: oxyCODONE HCL 5 MG TABLET PO PRN (21:55)
[2020-04-27] MEDS: oxyCODONE HCL 5 MG TABLET PO PRN ×4 (03:09→21:26)
[2020-04-27] MEDS: ACETAMINOPHEN 325 MG TABLET (FP) PO PRN ×4 (03:10→21:26)
[2020-04-27] MEDS ORDERED: PT OWN MED DRAWER 7, Y5N ONE ×5 (07:28→16:32)
[2020-04-27] MEDS: HEPARIN NA (PORCINE) 5,000 UNITS/ML 1ML VIAL SQ SCH ×3 (07:28→21:25)
[2020-04-27] MEDS: GEMFIBROZIL 600 MG TABLET (FP) PO SCH ×2 (07:29→16:30)
[2020-04-27] MEDS: GABAPENTIN 300 MG CAPSULE PO SCH ×3 (07:29→21:26)
[2020-04-27] MEDS: LEVOTHYROXINE NA 88 MCG TABLET (FP) PO SCH (07:29)
[2020-04-27] MEDS: INSULIN (LEVEMIR) 100 UNITS/ML UNITS SQ SCH ×2 (07:29→21:32)
[2020-04-27] MEDS: INSULIN SLIDING SCALE (NOVOLOG) 1 VIAL SQ SCH ×4 (07:34→21:37)
[2020-04-27] MEDS: SERTRALINE HCL 50 MG TABLET (FP) PO SCH (09:41)
[2020-04-27] MEDS: CALCIUM (OYSTER SHELL) 500 MG TABLET (FP) PO SCH ×2 (09:41→21:27)
[2020-04-27] MEDS: DULoxetine HCL 30 MG CAPSULE.DR PO SCH (09:44)
[2020-04-27] MEDS: LIPASE/PROTEASE/AMYLASE 6,000 UNIT CAPSULE PO SCH ×3 (09:44→18:15)
[2020-04-27] MEDS: amLODIPine BESYLATE 5 MG TABLET (FP) PO SCH (09:44)
[2020-04-27] MEDS: clonazePAM 0.5 MG TABLET PO SCH (09:44)
[2020-04-27] MEDS: metoPROLOL SUCCINATE 25 MG TAB.SR.24H (FP) PO SCH ×2 (09:45→21:28)
[2020-04-27] MEDS: LACTOBACILLUS ACIDOPHILUS 1 TABLET PO SCH (09:45)
[2020-04-27] MEDS: ARTIFICIAL TEARS (POLYVINYL ALCOHOL) OPTH DROPS OD SCH ×4 (09:46→21:29)
[2020-04-27] MEDS: POLYETHYLENE GLYCOL 3350 119 GM BTL PO SCH ×2 (12:12→21:33)
[2020-04-27] MEDS: CYCLOBENZAPRINE HCL 5 MG TABLET PO PRN (12:16)
[2020-04-27] MEDS ORDERED: INSULIN (NOVOLOG) ASPART 100 UNITS/ML 10ML VIAL ONE (21:16)
[2020-04-28] MEDS: oxyCODONE HCL 5 MG TABLET PO PRN ×4 (04:09→21:55)
[2020-04-28] MEDS: ACETAMINOPHEN 325 MG TABLET (FP) PO PRN ×3 (04:09→17:45)
[2020-04-28] MEDS ORDERED: PT OWN MED DRAWER 7, Y5N ONE ×4 (06:15→17:44)
[2020-04-28] MEDS: GEMFIBROZIL 600 MG TABLET (FP) PO SCH ×2 (06:34→17:45)
[2020-04-28] MEDS: GABAPENTIN 300 MG CAPSULE PO SCH ×3 (06:34→21:56)
[2020-04-28] MEDS: INSULIN (LEVEMIR) 100 UNITS/ML UNITS SQ SCH ×2 (06:34→21:53)
[2020-04-28] MEDS: LEVOTHYROXINE NA 88 MCG TABLET (FP) PO SCH (06:34)
[2020-04-28] MEDS: HEPARIN NA (PORCINE) 5,000 UNITS/ML 1ML VIAL SQ SCH ×3 (06:34→21:53)
[2020-04-28] MEDS: INSULIN SLIDING SCALE (NOVOLOG) 1 VIAL SQ SCH ×4 (06:35→21:53)
[2020-04-28] MEDS: DULoxetine HCL 30 MG CAPSULE.DR PO SCH (09:36)
[2020-04-28] MEDS: SERTRALINE HCL 50 MG TABLET (FP) PO SCH (09:37)
[2020-04-28] MEDS: LACTOBACILLUS ACIDOPHILUS 1 TABLET PO SCH (09:37)
[2020-04-28] MEDS: clonazePAM 0.5 MG TABLET PO SCH ×2 (09:37→13:33)
[2020-04-28] MEDS: LIPASE/PROTEASE/AMYLASE 6,000 UNIT CAPSULE PO SCH ×3 (09:37→17:45)
[2020-04-28] MEDS: metoPROLOL SUCCINATE 25 MG TAB.SR.24H (FP) PO SCH ×2 (09:37→21:56)
[2020-04-28] MEDS: CALCIUM (OYSTER SHELL) 500 MG TABLET (FP) PO SCH ×2 (09:37→21:56)
[2020-04-28] MEDS ORDERED: NEOMYCIN/POLYMYXIN/BACITRACIN (TRIPLE ANTIBIOTIC) 28 GM OINTMENT TP PRN (09:39)
[2020-04-28] MEDS: CYCLOBENZAPRINE HCL 5 MG TABLET PO PRN (09:40)
[2020-04-28] MEDS: amLODIPine BESYLATE 5 MG TABLET (FP) PO SCH (09:40)
[2020-04-28] MEDS: POLYETHYLENE GLYCOL 3350 119 GM BTL PO SCH ×2 (09:41→21:53)
[2020-04-28] MEDS: ARTIFICIAL TEARS (POLYVINYL ALCOHOL) OPTH DROPS OD SCH ×3 (09:41→19:21)
[2020-04-28 14:28] VITALS: BP 124/70; PULSE 65; TEMP 97.7
[2020-04-28] MEDS ORDERED: INSULIN (NOVOLOG) ASPART 100 UNITS/ML 10ML VIAL ONE (19:11)
== END 2020-04-28 22:00 | DRG 871 ==
LOC: JER 08:00 → JERBED 09:56 → J5WEST-2 21:17 → J6S 04-19 19:39
DX: A41.59 Other Gram-negative sepsis (principal); G93.41 Metabolic encephalopathy; N39.0 Urinary tract infection, site not specified; E03.9 Hypothyroidism, unspecified; E78.5 Hyperlipidemia, unspecified; F41.8 Other specified anxiety disorders; M32.9 Systemic lupus erythematosus, unspecified; K57.90 Diverticulosis of intestine, part unspecified, without perforation or abscess without bleeding; F60.9 Personality disorder, unspecified; R50.9 Fever, unspecified; M79.7 Fibromyalgia; K59.09 Other constipation; E11.65 Type 2 diabetes mellitus with hyperglycemia; R65.20 Severe sepsis without septic shock; R00.0 Tachycardia, unspecified; I10 Essential (primary) hypertension
CPT/HCPCS: 36415; 71045-TC-FY; 80048; 80053; 80061; 81003; 82010; 82248; 82272; 82550; 82607; 82728; 82962; 83036; 83605; 83615; 83721; 83735; 84100; 84443; 84484; 85025; 85027; 85379; 85610; 85730; 86140; 86780; 87040; 87086; 87186; 87804; 93005; 93010; 97116-GP; 97162-GP; 99285-25; C9803; J0131; J1644; U0003

== ENCOUNTER 2020-08-07 21:10 | Inpatient (IN) | payer OTHER ==
[2020-08-07 21:47] VITALS: BMI 25.4
[2020-08-07 22:45] LABS: BASO % 0.6 % (0-2.0); EOS % 6.8 % (0-4.5); HEMATOCRIT 30.8 % (32.4-45.2); HEMOGLOBIN 10.2 GM/dL (10.7-15.3); LYMPH % 14.3 % (8-40); MCH 31.1 pg (25.7-33.7); MCHC 33.1 g/dl (32.0-36.0); MEAN CELL VOLUME 93.9 fl (80-96); MONO % 9.8 % (3.8-10.2); NEUT % 68.5 % (42.8-82.8); PLATELET COUNT 262 K/MM3 (134-434); RBC 3.28 M/mm3 (3.60-5.2); RDW 12.9 % (11.6-15.6); WHITE BLOOD COUNT 11.8 K/mm3 (4.0-10.0)
[2020-08-07 22:54] LABS: INR 1.03 (0.83-1.09); PROTHROMBIN TIME (PATIENT) 12.7 SEC (9.7-13.0)
[2020-08-07 22:57] LABS: ACTIVATED PTT 29.9 SECONDS (25.2-36.5)
[2020-08-07 23:10] LABS: CALCIUM 9.7 mg/dL (8.5-10.1)
[2020-08-07 23:11] LABS: ALBUMIN 3.6 g/dl (3.4-5.0); BLOOD UREA NITROGEN 31.3 mg/dL (7-18)
[2020-08-07 23:15] LABS: CREATININE 0.8 mg/dL (0.55-1.3)
[2020-08-07 23:16] LABS: BILIRUBIN,TOTAL 0.2 mg/dL (0.2-1); TOT PROT 6.5 g/dl (6.4-8.2)
[2020-08-07] MEDS ORDERED: ACETAMINOPHEN INJECTION 100 ML IVPB ONE (23:44)
[2020-08-07] MEDS ORDERED: ACETAMINOPHEN 1000 MG/100 ML VIAL (NON FORMULARY) IVPB ONE (23:44)
[2020-08-08] MEDS ORDERED: CEFTRIAXONE 1 GM in DEXTROSE 5%-WATER - 100 ML IVPB ONE (00:39)
[2020-08-08] MEDS ORDERED: AZITHROMYCIN IVPB 500 MG in DEXTROSE 5%-WATER - 250 ML IVPB ONE (00:39)
[2020-08-08] MEDS ORDERED: DIPHTH,PERTUSS(ACELL),TET 0.5 ML DISP.SYRIN IM ONE ×2 (00:41→01:07)
[2020-08-08] MEDS ORDERED: CEFTRIAXONE 1 GM/50 ML BAG ONE (01:07)
[2020-08-08 01:09] LABS: EPI CELLS 10 /uL (0-25.1); HYALINE CASTS 4 /uL (0-3.1); URINE APPEARANCE CLEAR; URINE BACTERIA 186 /uL (0-1359); URINE BILIRUBIN NEGATIVE (NEGATIVE); URINE COLOR YELLOW; URINE GLUCOSE (UA) NEGATIVE (NEGATIVE); URINE KETONE NEGATIVE (NEGATIVE); URINE LEUK ESTERASE 2+ (NEGATIVE); URINE NITRITE NEGATIVE (NEGATIVE); URINE PROTEIN TRACE (NEGATIVE); URINE RBC 19 /uL (0-23.9); URINE UROBILINOGEN 0.2 mg/dL (0.2-1.0); URINE WBC 255 /uL (0-25.8)
[2020-08-08] MEDS ORDERED: AZITHROMYCIN IVPB 500 MG/250 ML BAG IVPB ONE (01:38)
[2020-08-08] MEDS ORDERED: CEFTRIAXONE 1 GM in DEXTROSE 5%-WATER - 50 ML IVPB ONE (01:51)
[2020-08-08] MEDS: SODIUM CHLORIDE 1,000 ML IV SCH (03:19)
[2020-08-08] MEDS ORDERED: oxyCODONE HCL 5 MG TABLET PO PRN ×2 (04:30→05:00)
[2020-08-08] MEDS: ACETAMINOPHEN 325 MG TABLET (FP) PO PRN ×4 (04:56→23:12)
[2020-08-08] MEDS: oxyCODONE HCL 5 MG TABLET PO PRN ×4 (04:57→23:12)
[2020-08-08] MEDS ORDERED: oxyCODONE HCL 5 MG TABLET PO ONE (05:00)
[2020-08-08] MEDS ORDERED: ACETAMINOPHEN 325 MG TABLET (FP) PO PRN ×2 (05:00)
[2020-08-08] MEDS: LEVOTHYROXINE NA 88 MCG TABLET (FP) PO SCH (06:29)
[2020-08-08 07:14] LABS: BASO % 0.4 % (0-2.0); EOS % 9.3 % (0-4.5); HEMATOCRIT 31.5 % (32.4-45.2); HEMOGLOBIN 10.6 GM/dL (10.7-15.3); LYMPH % 12.7 % (8-40); MCH 31.7 pg (25.7-33.7); MCHC 33.8 g/dl (32.0-36.0); MEAN CELL VOLUME 93.8 fl (80-96); MEAN PLT VOLUME 8.1 fl (7.5-11.1); MONO % 7.9 % (3.8-10.2); NEUT % 69.7 % (42.8-82.8); PLATELET COUNT 237 K/MM3 (134-434); RBC 3.36 M/mm3 (3.60-5.2); WHITE BLOOD COUNT 10.4 K/mm3 (4.0-10.0)
[2020-08-08 07:34] LABS: CALCIUM 9.2 mg/dL (8.5-10.1)
[2020-08-08 07:35] LABS: BLOOD UREA NITROGEN 22.2 mg/dL (7-18); MAGNESIUM 1.9 mg/dL (1.8-2.4)
[2020-08-08 07:36] LABS: ALBUMIN 3.4 g/dl (3.4-5.0)
[2020-08-08 07:38] LABS: CREATININE 0.7 mg/dL (0.55-1.3); PHOSPHOROUS 3.2 mg/dL (2.5-4.9)
[2020-08-08 07:39] LABS: BILIRUBIN,TOTAL 0.3 mg/dL (0.2-1); TOT PROT 6.2 g/dl (6.4-8.2)
[2020-08-08] MEDS ORDERED: DEXTROSE 5%-WATER - 50 ML IVPB ONE (10:16)
[2020-08-08] MEDS ORDERED: cefTRIAXone SODIUM 1 GM VIAL ONE (10:16)
[2020-08-08] MEDS ORDERED: PT OWN MED DRAWER 7, Y5N ONE ×2 (10:16→23:00)
[2020-08-08] MEDS: CEFTRIAXONE 1 GM in DEXTROSE 5%-WATER - 50 ML IVPB SCH (10:39)
[2020-08-08] MEDS: amLODIPine BESYLATE 5 MG TABLET (FP) PO SCH (10:40)
[2020-08-08] MEDS: predniSONE 10 MG TABLET (UD) PO SCH (10:40)
[2020-08-08] MEDS: ENOXAPARIN NA (PORCINE) 40 MG/0.4 ML DISP.SYRIN SQ SCH (10:40)
[2020-08-08] MEDS: metoPROLOL SUCCINATE 25 MG TAB.SR.24H (FP) PO SCH ×2 (10:40→23:11)
[2020-08-08] MEDS: HYDROXYCHLOROQUINE SO4 200 MG TABLET (FP) PO SCH ×2 (10:42→23:11)
[2020-08-08] MEDS: LIDOCAINE 5% TOPICAL PATCH TP SCH (15:00)
[2020-08-08] MEDS ORDERED: POTASSIUM CHLORIDE TABS 20 MEQ TABLET.ER (FP) PO ONE (16:16)
[2020-08-08] MEDS: BACITRACIN 15 GM TUBE TOPICAL OINTMENT TP SCH (23:09)
[2020-08-08] MEDS: LIDOCAINE PATCH REMOVAL MC SCH (23:10)
[2020-08-08] MEDS: INSULIN SLIDING SCALE (NOVOLOG) 1 VIAL SQ SCH (23:10)
[2020-08-09] MEDS: SODIUM CHLORIDE 1,000 ML IV SCH (04:58)
[2020-08-09] MEDS: INSULIN SLIDING SCALE (NOVOLOG) 1 VIAL SQ SCH ×4 (06:28→22:16)
[2020-08-09] MEDS: LEVOTHYROXINE NA 88 MCG TABLET (FP) PO SCH (06:28)
[2020-08-09] MEDS: oxyCODONE HCL 5 MG TABLET PO PRN ×3 (07:53→20:06)
[2020-08-09] MEDS: ACETAMINOPHEN 325 MG TABLET (FP) PO PRN ×2 (08:09→14:26)
[2020-08-09] MEDS ORDERED: cefTRIAXone SODIUM 1 GM VIAL ONE (08:42)
[2020-08-09] MEDS ORDERED: DEXTROSE 5%-WATER - 50 ML IVPB ONE (08:43)
[2020-08-09] MEDS: ENOXAPARIN NA (PORCINE) 40 MG/0.4 ML DISP.SYRIN SQ SCH (09:50)
[2020-08-09] MEDS: metoPROLOL SUCCINATE 25 MG TAB.SR.24H (FP) PO SCH ×2 (09:50→22:16)
[2020-08-09] MEDS: CEFTRIAXONE 1 GM in DEXTROSE 5%-WATER - 50 ML IVPB SCH (09:50)
[2020-08-09] MEDS: BACITRACIN 15 GM TUBE TOPICAL OINTMENT TP SCH ×2 (09:51→22:15)
[2020-08-09] MEDS: amLODIPine BESYLATE 5 MG TABLET (FP) PO SCH (09:51)
[2020-08-09] MEDS: predniSONE 10 MG TABLET (UD) PO SCH (09:51)
[2020-08-09] MEDS: LIDOCAINE 5% TOPICAL PATCH TP SCH (09:51)
[2020-08-09] MEDS ORDERED: PT OWN MED DRAWER 7, Y5N ONE ×2 (10:05→19:59)
[2020-08-09] MEDS: HYDROXYCHLOROQUINE SO4 200 MG TABLET (FP) PO SCH ×2 (10:06→22:16)
[2020-08-09] MEDS ORDERED: amLODIPine BESYLATE 5 MG TABLET (FP) PO SCH ×2 (12:10→12:15)
[2020-08-09 15:16] LABS: BASO % 0.3 % (0-2.0); EOS % 6.6 % (0-4.5); HEMATOCRIT 36.2 % (32.4-45.2); HEMOGLOBIN 12.3 GM/dL (10.7-15.3); LYMPH % 8.2 % (8-40); MCH 31.7 pg (25.7-33.7); MCHC 34.1 g/dl (32.0-36.0); MEAN CELL VOLUME 92.9 fl (80-96); MONO % 3.8 % (3.8-10.2); NEUT % 81.1 % (42.8-82.8); PLATELET COUNT 290 K/MM3 (134-434); RBC 3.89 M/mm3 (3.60-5.2); RDW 13.1 % (11.6-15.6); WHITE BLOOD COUNT 12.2 K/mm3 (4.0-10.0)
[2020-08-09 15:36] LABS: CALCIUM 9.8 mg/dL (8.5-10.1)
[2020-08-09 15:37] LABS: ALBUMIN 3.4 g/dl (3.4-5.0); BLOOD UREA NITROGEN 15.9 mg/dL (7-18)
[2020-08-09 15:39] LABS: CREATININE 0.7 mg/dL (0.55-1.3)
[2020-08-09 15:41] LABS: BILIRUBIN,TOTAL 0.3 mg/dL (0.2-1); TOT PROT 6.9 g/dl (6.4-8.2)
[2020-08-09] MEDS: LIDOCAINE PATCH REMOVAL MC SCH (22:16)
[2020-08-10] MEDS: oxyCODONE HCL 5 MG TABLET PO PRN ×4 (01:09→22:50)
[2020-08-10] MEDS: ACETAMINOPHEN 325 MG TABLET (FP) PO PRN ×3 (01:11→13:07)
[2020-08-10] MEDS: LEVOTHYROXINE NA 88 MCG TABLET (FP) PO SCH (06:55)
[2020-08-10] MEDS: INSULIN SLIDING SCALE (NOVOLOG) 1 VIAL SQ SCH ×4 (07:01→22:51)
[2020-08-10 07:10] LABS: BASO % 0.7 % (0-2.0); EOS % 9.9 % (0-4.5); HEMATOCRIT 34.7 % (32.4-45.2); HEMOGLOBIN 12.2 GM/dL (10.7-15.3); MCHC 35.2 g/dl (32.0-36.0); MEAN CELL VOLUME 90.7 fl (80-96); MEAN PLT VOLUME 7.5 fl (7.5-11.1); MONO % 7.7 % (3.8-10.2); NEUT % 62.7 % (42.8-82.8); PLATELET COUNT 282 K/MM3 (134-434); RBC 3.83 M/mm3 (3.60-5.2)
[2020-08-10 07:24] LABS: CALCIUM 9.4 mg/dL (8.5-10.1)
[2020-08-10 07:25] LABS: ALBUMIN 3.4 g/dl (3.4-5.0); BLOOD UREA NITROGEN 16.8 mg/dL (7-18); MAGNESIUM 1.7 mg/dL (1.8-2.4)
[2020-08-10 07:28] LABS: CREATININE 0.6 mg/dL (0.55-1.3)
[2020-08-10 07:30] LABS: BILIRUBIN,TOTAL 0.4 mg/dL (0.2-1); TOT PROT 6.5 g/dl (6.4-8.2)
[2020-08-10] MEDS ORDERED: POTASSIUM CHLORIDE TABS 20 MEQ TABLET.ER (FP) PO ONE (08:40)
[2020-08-10] MEDS ORDERED: PT OWN MED DRAWER 7, Y5N ONE ×2 (09:16→21:35)
[2020-08-10] MEDS ORDERED: DEXTROSE 5%-WATER - 50 ML IVPB ONE (09:46)
[2020-08-10] MEDS ORDERED: cefTRIAXone SODIUM 1 GM VIAL ONE (09:46)
[2020-08-10] MEDS: LIDOCAINE 5% TOPICAL PATCH TP SCH (09:53)
[2020-08-10] MEDS: amLODIPine BESYLATE 5 MG TABLET (FP) PO SCH (09:53)
[2020-08-10] MEDS: CEFTRIAXONE 1 GM in DEXTROSE 5%-WATER - 50 ML IVPB SCH (09:53)
[2020-08-10] MEDS: metoPROLOL SUCCINATE 25 MG TAB.SR.24H (FP) PO SCH ×2 (09:53→22:50)
[2020-08-10] MEDS: predniSONE 10 MG TABLET (UD) PO SCH (09:53)
[2020-08-10] MEDS: BACITRACIN 15 GM TUBE TOPICAL OINTMENT TP SCH ×2 (09:54→22:52)
[2020-08-10] MEDS: HYDROXYCHLOROQUINE SO4 200 MG TABLET (FP) PO SCH ×2 (09:56→22:51)
[2020-08-10] MEDS: GABAPENTIN 100 MG CAPSULE PO SCH ×2 (13:08→22:50)
[2020-08-10] MEDS: DOCUSATE SODIUM 100 MG CAPSULE (FP) PO SCH ×2 (13:08→22:50)
[2020-08-10] MEDS: ENOXAPARIN NA (PORCINE) 40 MG/0.4 ML DISP.SYRIN SQ SCH (13:12)
[2020-08-10] MEDS: LIDOCAINE PATCH REMOVAL MC SCH (22:52)
[2020-08-11] MEDS: oxyCODONE HCL 5 MG TABLET PO PRN ×3 (04:49→21:02)
[2020-08-11] MEDS: ACETAMINOPHEN 325 MG TABLET (FP) PO PRN ×3 (04:50→21:01)
[2020-08-11] MEDS: INSULIN SLIDING SCALE (NOVOLOG) 1 VIAL SQ SCH ×4 (06:36→21:58)
[2020-08-11] MEDS: LEVOTHYROXINE NA 88 MCG TABLET (FP) PO SCH (06:36)
[2020-08-11] MEDS: GABAPENTIN 100 MG CAPSULE PO SCH ×3 (06:36→21:03)
[2020-08-11 07:10] LABS: BASO % 0.9 % (0-2.0); HEMATOCRIT 37.5 % (32.4-45.2); HEMOGLOBIN 13.1 GM/dL (10.7-15.3); LYMPH % 16.3 % (8-40); MCHC 34.8 g/dl (32.0-36.0); MEAN PLT VOLUME 7.9 fl (7.5-11.1); MONO % 8.3 % (3.8-10.2); NEUT % 65.5 % (42.8-82.8); PLATELET COUNT 266 K/MM3 (134-434); RBC 4.08 M/mm3 (3.60-5.2); RDW 12.9 % (11.6-15.6); WHITE BLOOD COUNT 12.7 K/mm3 (4.0-10.0)
[2020-08-11 07:36] LABS: CALCIUM 9.9 mg/dL (8.5-10.1)
[2020-08-11 07:37] LABS: ALBUMIN 3.3 g/dl (3.4-5.0); BLOOD UREA NITROGEN 24.6 mg/dL (7-18); MAGNESIUM 1.8 mg/dL (1.8-2.4)
[2020-08-11 07:40] LABS: CREATININE 0.6 mg/dL (0.55-1.3)
[2020-08-11 07:41] LABS: BILIRUBIN,TOTAL 0.4 mg/dL (0.2-1); TOT PROT 6.3 g/dl (6.4-8.2)
[2020-08-11] MEDS ORDERED: PT OWN MED DRAWER 7, Y5N ONE ×2 (09:01→20:48)
[2020-08-11] MEDS ORDERED: cefTRIAXone SODIUM 1 GM VIAL ONE (09:38)
[2020-08-11] MEDS ORDERED: DEXTROSE 5%-WATER - 50 ML IVPB ONE (09:38)
[2020-08-11] MEDS: BACITRACIN 15 GM TUBE TOPICAL OINTMENT TP SCH ×2 (09:43→21:04)
[2020-08-11] MEDS: metoPROLOL SUCCINATE 25 MG TAB.SR.24H (FP) PO SCH ×2 (09:44→21:02)
[2020-08-11] MEDS: DOCUSATE SODIUM 100 MG CAPSULE (FP) PO SCH ×2 (09:44→21:03)
[2020-08-11] MEDS: amLODIPine BESYLATE 5 MG TABLET (FP) PO SCH (09:44)
[2020-08-11] MEDS: HYDROXYCHLOROQUINE SO4 200 MG TABLET (FP) PO SCH ×2 (09:44→21:03)
[2020-08-11] MEDS: CEFTRIAXONE 1 GM in DEXTROSE 5%-WATER - 50 ML IVPB SCH (09:45)
[2020-08-11] MEDS: LIDOCAINE 5% TOPICAL PATCH TP SCH (09:45)
[2020-08-11] MEDS: predniSONE 10 MG TABLET (UD) PO SCH (09:45)
[2020-08-11] MEDS: LIDOCAINE PATCH REMOVAL MC SCH (21:04)
[2020-08-12] MEDS: ACETAMINOPHEN 325 MG TABLET (FP) PO PRN ×2 (05:09→12:45)
[2020-08-12] MEDS: oxyCODONE HCL 5 MG TABLET PO PRN ×2 (05:10→12:45)
[2020-08-12] MEDS: GABAPENTIN 100 MG CAPSULE PO SCH (06:29)
[2020-08-12] MEDS: LEVOTHYROXINE NA 88 MCG TABLET (FP) PO SCH (06:30)
[2020-08-12] MEDS: INSULIN SLIDING SCALE (NOVOLOG) 1 VIAL SQ SCH ×2 (06:51→12:18)
[2020-08-12 06:57] LABS: BASO % 0.8 % (0-2.0); EOS % 9.1 % (0-4.5); HEMATOCRIT 34.6 % (32.4-45.2); LYMPH % 20.8 % (8-40); MCH 31.8 pg (25.7-33.7); MCHC 34.6 g/dl (32.0-36.0); MONO % 7.1 % (3.8-10.2); NEUT % 62.2 % (42.8-82.8); PLATELET COUNT 272 K/MM3 (134-434); RBC 3.76 M/mm3 (3.60-5.2); RDW 12.7 % (11.6-15.6)
[2020-08-12 07:20] LABS: ALBUMIN 3.3 g/dl (3.4-5.0); BLOOD UREA NITROGEN 25.9 mg/dL (7-18); CALCIUM 9.8 mg/dL (8.5-10.1); MAGNESIUM 1.7 mg/dL (1.8-2.4)
[2020-08-12 07:21] LABS: BILIRUBIN,TOTAL 0.3 mg/dL (0.2-1); TOT PROT 6.2 g/dl (6.4-8.2)
[2020-08-12 07:23] LABS: CREATININE 0.7 mg/dL (0.55-1.3)
[2020-08-12] MEDS ORDERED: DEXTROSE 5%-WATER - 50 ML IVPB ONE (08:42)
[2020-08-12] MEDS ORDERED: cefTRIAXone SODIUM 1 GM VIAL ONE (08:42)
[2020-08-12] MEDS: metoPROLOL SUCCINATE 25 MG TAB.SR.24H (FP) PO SCH (09:24)
[2020-08-12] MEDS: predniSONE 10 MG TABLET (UD) PO SCH (09:25)
[2020-08-12] MEDS: BACITRACIN 15 GM TUBE TOPICAL OINTMENT TP SCH (09:28)
[2020-08-12] MEDS: DOCUSATE SODIUM 100 MG CAPSULE (FP) PO SCH (09:28)
[2020-08-12] MEDS: LIDOCAINE 5% TOPICAL PATCH TP SCH (09:28)
[2020-08-12] MEDS: HYDROXYCHLOROQUINE SO4 200 MG TABLET (FP) PO SCH (09:29)
[2020-08-12] MEDS: CEFTRIAXONE 1 GM in DEXTROSE 5%-WATER - 50 ML IVPB SCH (09:29)
[2020-08-12] MEDS: amLODIPine BESYLATE 5 MG TABLET (FP) PO SCH (09:29)
[2020-08-12] MEDS ORDERED: CYCLOBENZAPRINE HCL 5 MG TABLET PO PRN (12:03)
[2020-08-12] MEDS ORDERED: DULoxetine HCL 30 MG CAPSULE.DR PO SCH (12:15)
[2020-08-12 14:07] VITALS: BP 148/77; PULSE 72; TEMP 97.8
== END 2020-08-12 14:55 | DRG 312 ==
LOC: JER 21:10 → JERBED 08-08 00:43 → J4W 08-08 04:24
PROVIDERS: ADMIT Internal Medicine; ATTEND Nurse Practitioner Family
DX: I95.1 Orthostatic hypotension (principal); N39.0 Urinary tract infection, site not specified; M32.9 Systemic lupus erythematosus, unspecified; R29.6 Repeated falls; S51.011A Laceration without foreign body of right elbow, initial encounter; S09.90XA Unspecified injury of head, initial encounter; E11.9 Type 2 diabetes mellitus without complications; E86.0 Dehydration; I10 Essential (primary) hypertension; E78.5 Hyperlipidemia, unspecified; E03.9 Hypothyroidism, unspecified; W19.XXXA Unspecified fall, initial encounter; Y93.9 Activity, unspecified; Y92.89 Other specified places as the place of occurrence of the external cause; Y99.9 Unspecified external cause status
CPT/HCPCS: 36415; 70450-TC; 71045-TC-FY; 72125-TC; 72170-TC-FY; 73030-TC-RT-FY; 73070-TC-RT-FY; 80053; 81003; 82550; 82553; 82962; 83036; 83735; 83880; 84100; 84443; 84484; 85025; 85610; 85730; 86850; 86900; 86901; 87040; 90715; 93005; 93010; 93306-TC; 93880-TC; 94010; 97116-GP; 97162-GP; 99285-25; C9803; J0131; U0003; U0005

== ENCOUNTER 2020-09-27 13:40 | Emergency (ER) | payer OTHER ==
[2020-09-27 14:16] VITALS: TEMP 98.3; BMI 25.0
[2020-09-27 18:53] VITALS: BP 129/71; PULSE 60
== END 2020-09-27 18:53 | disposition home or self-care (01) ==
LOC: JERFT 13:40
DX: H10.9 Unspecified conjunctivitis (principal)
CPT/HCPCS: 99283-25

== ENCOUNTER 2020-10-25 11:23 | Emergency (ER) | payer OTHER ==
[2020-10-25 11:42] VITALS: TEMP 98.9; BMI 29.1
[2020-10-25] MEDS ORDERED: SODIUM CHLORIDE 0.9% 500 ML INFUS.BAG IV ONE (13:12)
[2020-10-25] MEDS ORDERED: ACETAMINOPHEN 1000 MG/100 ML VIAL (NON FORMULARY) IVPB ONE (13:20)
[2020-10-25 13:45] LABS: EOS % 2.5 % (0-4.5); HEMATOCRIT 33.1 % (32.4-45.2); HEMOGLOBIN 11.4 GM/dL (10.7-15.3); LYMPH % 7.6 % (8-40); MCH 31.8 pg (25.7-33.7); MCHC 34.3 g/dl (32.0-36.0); MEAN CELL VOLUME 92.8 fl (80-96); MONO % 3.4 % (3.8-10.2); NEUT % 85.5 % (42.8-82.8); PLATELET COUNT 273 10^3/uL (134-434); RBC 3.57 M/mm3 (3.60-5.2); RDW 13.5 % (11.6-15.6); WHITE BLOOD COUNT 7.3 K/mm3 (4.0-10.0)
[2020-10-25 13:48] LABS: EPI CELLS 22 /uL (0-25.1); HYALINE CASTS 3 /uL (0-3.1); PH,URINE 6.5 (5.0-8.0); URINE APPEARANCE CLEAR; URINE BACTERIA 90 /uL (0-1359); URINE BILIRUBIN NEGATIVE (NEGATIVE); URINE COLOR YELLOW; URINE GLUCOSE (UA) NEGATIVE (NEGATIVE); URINE KETONE NEGATIVE (NEGATIVE); URINE LEUK ESTERASE 2+ (NEGATIVE); URINE NITRITE NEGATIVE (NEGATIVE); URINE PROTEIN 1+ (NEGATIVE); URINE RBC 67 /uL (0-23.9); URINE UROBILINOGEN 0.2 mg/dL (0.2-1.0); URINE WBC 84 /uL (0-25.8)
[2020-10-25 14:08] LABS: SODIUM 142 mmol/L (136-145)
[2020-10-25 14:10] LABS: CALCIUM 8.8 mg/dL (8.5-10.1)
[2020-10-25 14:11] LABS: ALBUMIN 3.5 g/dl (3.4-5.0); BLOOD UREA NITROGEN 18.8 mg/dL (7-18); CO2 22 mmol/L (21-32); GLUCOSE,RANDOM 162 mg/dL (74-106)
[2020-10-25 14:14] LABS: CREATININE 0.8 mg/dL (0.55-1.3); SGOT/AST 13 U/L (15-37)
[2020-10-25 14:16] LABS: BILIRUBIN,TOTAL 0.3 mg/dL (0.2-1); TOT PROT 6.6 g/dl (6.4-8.2)
[2020-10-25 14:17] LABS: ALK PHOS 181 U/L (45-117)
[2020-10-25 14:29] LABS: ANION GAP 7 MMOL/L (8-16); CHLORIDE 113 mmol/L (98-107); SGPT/ALT 13 U/L (13-61)
[2020-10-25] MEDS ORDERED: ACETAMINOPHEN INJECTION 100 ML IVPB ONE (14:35)
[2020-10-25 23:16] VITALS: BP 159/88; PULSE 81
[2020-10-25] MEDS ORDERED: GABAPENTIN 100 MG CAPSULE PO ONE (23:20)
[2020-10-25] MEDS ORDERED: metoPROLOL SUCCINATE 25 MG TAB.SR.24H (FP) PO ONE (23:20)
[2020-10-25] MEDS ORDERED: amLODIPine BESYLATE 5 MG TABLET (FP) PO ONE (23:20)
[2020-10-25] MEDS ORDERED: SERTRALINE HCL 50 MG TABLET (FP) PO ONE (23:20)
[2020-10-25] MEDS ORDERED: clonazePAM 0.5 MG TABLET PO ONE (23:20)
[2020-10-25] MEDS ORDERED: LEVOTHYROXINE NA 88 MCG TABLET (FP) PO ONE (23:20)
[2020-10-25] MEDS ORDERED: amLODIPine BESYLATE 5 MG TABLET (FP) ONE (23:28)
[2020-10-25] MEDS ORDERED: LEVOTHYROXINE NA 25 MCG TABLET (FP) ONE (23:28)
[2020-10-25] MEDS ORDERED: metoPROLOL SUCCINATE 25 MG TAB.SR.24H (FP) ONE (23:28)
[2020-10-25] MEDS ORDERED: SERTRALINE HCL 50 MG TABLET (FP) ONE (23:28)
[2020-10-25] MEDS ORDERED: clonazePAM 0.5 MG TABLET ONE (23:28)
[2020-10-25] MEDS ORDERED: GABAPENTIN 100 MG CAPSULE ONE (23:29)
[2020-10-25] MEDS ORDERED: HYDROXYCHLOROQUINE SO4 200 MG TABLET (FP) PO SCH (23:30)
== END 2020-10-25 23:35 | disposition home or self-care (01) ==
LOC: JER 11:23
PROC: 3E0333Z Introduction of Anti-inflammatory into Peripheral Vein, Percutaneous Approach (ICD-10-PCS; principal; 2020-10-25)
DX: N30.00 Acute cystitis without hematuria (principal); S22.42XA Multiple fractures of ribs, left side, initial encounter for closed fracture; W01.0XXA Fall on same level from slipping, tripping and stumbling without subsequent striking against object, initial encounter; Y92.129 Unspecified place in nursing home as the place of occurrence of the external cause; Y93.01 Activity, walking, marching and hiking
CPT/HCPCS: 36415; 70450-TC; 71046-TC-FY; 72125-TC; 73523-TC-FY; 73552-TC-LT-FY; 80053; 81003; 82550; 84443; 84484; 85025; 87086; 87186; 93005; 93010; 99285-25; C9803; J0131; U0003; U0005

== ENCOUNTER 2020-12-22 03:28 | Emergency (ER) | payer OTHER ==
[2020-12-22 04:15] VITALS: TEMP 98.7; BMI 26.6
[2020-12-22] MEDS ORDERED: ACETAMINOPHEN 1000 MG/100 ML VIAL (NON FORMULARY) IVPB ONE (04:19)
[2020-12-22] MEDS ORDERED: ACETAMINOPHEN INJECTION 100 ML IVPB ONE (04:26)
[2020-12-22 05:43] LABS: BASO % 0.7 % (0-2.0); EOS % 4.4 % (0-4.5); HEMOGLOBIN 10.8 GM/dL (10.7-15.3); LYMPH % 22.8 % (8-40); MCH 32.6 pg (25.7-33.7); MCHC 34.9 g/dl (32.0-36.0); MEAN CELL VOLUME 93.5 fl (80-96); MEAN PLT VOLUME 8.3 fl (7.5-11.1); MONO % 11.7 % (3.8-10.2); NEUT % 60.4 % (42.8-82.8); PLATELET COUNT 291 10^3/uL (134-434); RBC 3.31 M/mm3 (3.60-5.2); WHITE BLOOD COUNT 8.1 K/mm3 (4.0-10.0)
[2020-12-22 06:04] LABS: CALCIUM 9.1 mg/dL (8.5-10.1)
[2020-12-22 06:05] LABS: ALBUMIN 3.1 g/dl (3.4-5.0); BLOOD UREA NITROGEN 28.9 mg/dL (7-18)
[2020-12-22 06:08] LABS: CREATININE 0.7 mg/dL (0.55-1.3)
[2020-12-22 06:09] LABS: BILIRUBIN,TOTAL 0.4 mg/dL (0.2-1); TOT PROT 6.5 g/dl (6.4-8.2)
[2020-12-22] MEDS ORDERED: LIDOCAINE 5% TOPICAL PATCH TP ONE (06:19)
[2020-12-22] MEDS ORDERED: LIDOCAINE 5% TOPICAL PATCH ONE (06:22)
[2020-12-22 06:35] LABS: EPI CELLS 12 /uL (0-25.1); HYALINE CASTS 1 /uL (0-3.1); PH,URINE 6.5 (5.0-8.0); URINE APPEARANCE CLEAR; URINE BACTERIA 40 /uL (0-1359); URINE BILIRUBIN NEGATIVE (NEGATIVE); URINE COLOR YELLOW; URINE GLUCOSE (UA) NEGATIVE (NEGATIVE); URINE KETONE NEGATIVE (NEGATIVE); URINE LEUK ESTERASE 1+ (NEGATIVE); URINE NITRITE NEGATIVE (NEGATIVE); URINE PROTEIN NEGATIVE (NEGATIVE); URINE RBC 11 /uL (0-23.9); URINE UROBILINOGEN 0.2 mg/dL (0.2-1.0); URINE WBC 90 /uL (0-25.8)
[2020-12-22 07:11] VITALS: BP 176/83; PULSE 84
[2020-12-22] MEDS ORDERED: oxyCODONE HCL 5 MG TABLET PO ONE (09:23)
[2020-12-22] MEDS ORDERED: LIDOCAINE PATCH REMOVAL MC ONE (19:00)
== END 2020-12-22 11:30 ==
LOC: JER 03:28
PROC: 3E033GC Introduction of Other Therapeutic Substance into Peripheral Vein, Percutaneous Approach (ICD-10-PCS; principal; 2020-12-22)
DX: M79.10 Myalgia, unspecified site (principal); G89.29 Other chronic pain
CPT/HCPCS: 36415; 71045-TC-FY; 80053; 81003; 82550; 83605; 84484; 85025; 87086; 87186; 93005; 93010; 96374; 99285-25; J0131

== ENCOUNTER 2021-03-22 13:22 | Inpatient (IN) | payer OTHER ==
[2021-03-22 14:55] LABS: BASO % 0.7 % (0-2.0); EOS % 1.1 % (0-4.5); HEMATOCRIT 31.2 % (32.4-45.2); HEMOGLOBIN 10.6 GM/dL (10.7-15.3); LYMPH % 10.7 % (8-40); MCH 31.4 pg (25.7-33.7); MCHC 33.8 g/dl (32.0-36.0); MEAN CELL VOLUME 92.8 fl (80-96); MEAN PLT VOLUME 7.2 fl (7.5-11.1); MONO % 7.9 % (3.8-10.2); NEUT % 79.6 % (42.8-82.8); PLATELET COUNT 254 10^3/uL (134-434); RBC 3.36 M/mm3 (3.60-5.2); WHITE BLOOD COUNT 4.2 K/mm3 (4.0-10.0)
[2021-03-22 15:20] LABS: CALCIUM 8.9 mg/dL (8.5-10.1)
[2021-03-22 15:21] LABS: ALBUMIN 3.2 g/dl (3.4-5.0); BLOOD UREA NITROGEN 17.3 mg/dL (7-18)
[2021-03-22 15:24] LABS: CREATININE 0.8 mg/dL (0.55-1.3)
[2021-03-22 15:25] LABS: BILIRUBIN,TOTAL 0.2 mg/dL (0.2-1)
[2021-03-22 15:26] LABS: TOT PROT 6.2 g/dl (6.4-8.2)
[2021-03-22] MEDS ORDERED: ACETAMINOPHEN 1000 MG/100 ML BAG IVPB ONE (15:46)
[2021-03-22] MEDS ORDERED: ACETAMINOPHEN INJECTION 100 ML IVPB ONE (15:52)
[2021-03-22 20:38] LABS: PH,URINE 6.5 (5.0-8.0); URINE APPEARANCE CLEAR; URINE BILIRUBIN NEGATIVE (NEGATIVE); URINE COLOR YELLOW; URINE GLUCOSE (UA) NEGATIVE (NEGATIVE); URINE KETONE NEGATIVE (NEGATIVE); URINE LEUK ESTERASE NEGATIVE (NEGATIVE); URINE NITRITE NEGATIVE (NEGATIVE); URINE PROTEIN TRACE (NEGATIVE); URINE UROBILINOGEN 0.2 mg/dL (0.2-1.0)
[2021-03-22] MEDS ORDERED: clonazePAM 0.5 MG ODT TABLETS SL ONE (23:30)
[2021-03-22] MEDS: ASCORBIC ACID 500 MG TABLET (FP) PO SCH (23:37)
[2021-03-22] MEDS: oxyCODONE HCL 5 MG TABLET PO PRN (23:38)
[2021-03-22] MEDS: ZINC SULFATE 220 MG CAPSULE (FP) PO SCH (23:40)
[2021-03-22] MEDS: HEPARIN NA (PORCINE) 5,000 UNITS/ML 1ML VIAL SQ SCH (23:41)
[2021-03-22] MEDS: metoPROLOL SUCCINATE 25 MG TAB.SR.24H (FP) PO SCH (23:41)
[2021-03-22] MEDS: HYDROXYCHLOROQUINE SO4 200 MG TABLET (FP) PO SCH (23:43)
[2021-03-22] MEDS: TOBRA 0.3%/DEXAMETH 0.1% OPHTHALMIC SUSP 2.5 ML BTL OP SCH (23:44)
[2021-03-22] MEDS ORDERED: clonazePAM 0.5 MG TABLET PO ONE (23:58)
[2021-03-23] MEDS: oxyCODONE HCL 5 MG TABLET PO PRN ×3 (05:45→20:43)
[2021-03-23 06:14] VITALS: BMI 26.1
[2021-03-23] MEDS: HEPARIN NA (PORCINE) 5,000 UNITS/ML 1ML VIAL SQ SCH ×3 (06:17→21:07)
[2021-03-23] MEDS: LEVOTHYROXINE NA 88 MCG TABLET (FP) PO SCH (06:17)
[2021-03-23] MEDS ORDERED: PT OWN MED DRAWER 7, Y5N ONE (08:58)
[2021-03-23 09:09] LABS: BASO % 0.6 % (0-2.0); EOS % 5.4 % (0-4.5); HEMATOCRIT 29.9 % (32.4-45.2); HEMOGLOBIN 10.2 GM/dL (10.7-15.3); LYMPH % 18.4 % (8-40); MCH 31.7 pg (25.7-33.7); MCHC 34.1 g/dl (32.0-36.0); MEAN CELL VOLUME 92.9 fl (80-96); MEAN PLT VOLUME 7.8 fl (7.5-11.1); MONO % 9.6 % (3.8-10.2); PLATELET COUNT 260 10^3/uL (134-434); RBC 3.22 M/mm3 (3.60-5.2); RDW 13.9 % (11.6-15.6); WHITE BLOOD COUNT 5.8 K/mm3 (4.0-10.0)
[2021-03-23] MEDS: ZINC SULFATE 220 MG CAPSULE (FP) PO SCH ×2 (09:18→21:07)
[2021-03-23] MEDS: ASCORBIC ACID 500 MG TABLET (FP) PO SCH ×2 (09:18→21:07)
[2021-03-23] MEDS: HYDROXYCHLOROQUINE SO4 200 MG TABLET (FP) PO SCH ×2 (09:18→21:08)
[2021-03-23] MEDS: predniSONE 5 MG TABLET (UD) PO SCH (09:18)
[2021-03-23] MEDS: amLODIPine BESYLATE 5 MG TABLET (FP) PO SCH (09:18)
[2021-03-23] MEDS: POLYETHYLENE GLYCOL (HEALTHYLAX) 3350 17 GM PACKET PO SCH ×2 (09:18→09:33)
[2021-03-23 09:19] LABS: ACTIVATED PTT 34.5 SECONDS (25.2-36.5)
[2021-03-23] MEDS: metoPROLOL SUCCINATE 25 MG TAB.SR.24H (FP) PO SCH ×2 (09:20→21:07)
[2021-03-23] MEDS: TOBRA 0.3%/DEXAMETH 0.1% OPHTHALMIC SUSP 2.5 ML BTL OP SCH ×2 (09:22→21:10)
[2021-03-23 09:23] LABS: INR 1.01 (0.83-1.09); PROTHROMBIN TIME (PATIENT) 11.6 SEC (9.7-13.0)
[2021-03-23 09:30] LABS: CHLORIDE 113 mmol/L (98-107); SODIUM 145 mmol/L (136-145)
[2021-03-23 09:39] LABS: BLOOD UREA NITROGEN 14.9 mg/dL (7-18); CALCIUM 8.8 mg/dL (8.5-10.1); CO2 23 mmol/L (21-32); MAGNESIUM 1.9 mg/dL (1.8-2.4)
[2021-03-23 09:41] LABS: BILIRUBIN,TOTAL 1.2 mg/dL (0.2-1)
[2021-03-23 09:42] LABS: CREATININE 0.7 mg/dL (0.55-1.3); PHOSPHOROUS 3.3 mg/dL (2.5-4.9); SGPT/ALT 19 U/L (13-61)
[2021-03-23 09:43] LABS: SGOT/AST 15 U/L (15-37)
[2021-03-23 09:44] LABS: TOT PROT 5.7 g/dl (6.4-8.2)
[2021-03-23 09:45] LABS: ALK PHOS 217 U/L (45-117)
[2021-03-23 09:47] LABS: ANION GAP 10 MMOL/L (8-16); GLUCOSE,RANDOM 128 mg/dL (74-106)
[2021-03-23] MEDS ORDERED: clonazePAM 0.5 MG TABLET PO SCH (10:00)
[2021-03-23] MEDS ORDERED: PATIENT'S OWN MEDICATION (NON-FORMULARY) (Sertraline Hcl [Zoloft] 100 MG Tablet) PO SCH (10:00)
[2021-03-23] MEDS: SERTRALINE HCL 50 MG TABLET (FP) PO SCH (10:58)
[2021-03-23] MEDS: DULoxetine HCL 30 MG CAPSULE.DR PO SCH (10:58)
[2021-03-23] MEDS ORDERED: POTASSIUM CHLORIDE ORAL LIQUID 20 MEQ/15 ML PO ONE ×2 (13:15→15:00)
[2021-03-23] MEDS ORDERED: POTASSIUM CHLORIDE ORAL LIQUID 20 MEQ/15 ML PO SCH (14:00)
[2021-03-24] MEDS: oxyCODONE HCL 5 MG TABLET PO PRN ×3 (03:11→21:15)
[2021-03-24] MEDS ORDERED: clonazePAM 0.5 MG TABLET PO ONE (03:17)
[2021-03-24] MEDS: HEPARIN NA (PORCINE) 5,000 UNITS/ML 1ML VIAL SQ SCH ×3 (05:33→21:29)
[2021-03-24] MEDS: ACETAMINOPHEN 325 MG TABLET (FP) PO PRN (05:33)
[2021-03-24] MEDS: LEVOTHYROXINE NA 88 MCG TABLET (FP) PO SCH (06:13)
[2021-03-24 10:41] LABS: BASO % 0.5 % (0-2.0); EOS % 5.4 % (0-4.5); HEMATOCRIT 31.3 % (32.4-45.2); LYMPH % 12.6 % (8-40); MCH 32.5 pg (25.7-33.7); MCHC 35.1 g/dl (32.0-36.0); MEAN CELL VOLUME 92.7 fl (80-96); MEAN PLT VOLUME 7.3 fl (7.5-11.1); MONO % 9.5 % (3.8-10.2); PLATELET COUNT 250 10^3/uL (134-434); RBC 3.38 M/mm3 (3.60-5.2); RDW 13.8 % (11.6-15.6); WHITE BLOOD COUNT 6.3 K/mm3 (4.0-10.0)
[2021-03-24] MEDS ORDERED: PT OWN MED DRAWER 7, Y5N ONE (10:54)
[2021-03-24] MEDS: metoPROLOL SUCCINATE 25 MG TAB.SR.24H (FP) PO SCH ×2 (10:59→21:29)
[2021-03-24] MEDS: ASCORBIC ACID 500 MG TABLET (FP) PO SCH ×2 (10:59→21:29)
[2021-03-24] MEDS: SERTRALINE HCL 50 MG TABLET (FP) PO SCH (10:59)
[2021-03-24] MEDS: DULoxetine HCL 30 MG CAPSULE.DR PO SCH (11:01)
[2021-03-24] MEDS: HYDROXYCHLOROQUINE SO4 200 MG TABLET (FP) PO SCH ×2 (11:02→21:49)
[2021-03-24 11:03] LABS: ALBUMIN 2.9 g/dl (3.4-5.0); BLOOD UREA NITROGEN 13.6 mg/dL (7-18); CALCIUM 9.1 mg/dL (8.5-10.1)
[2021-03-24] MEDS: TOBRA 0.3%/DEXAMETH 0.1% OPHTHALMIC SUSP 2.5 ML BTL OP SCH ×2 (11:03→21:32)
[2021-03-24] MEDS: amLODIPine BESYLATE 5 MG TABLET (FP) PO SCH (11:03)
[2021-03-24] MEDS: POLYETHYLENE GLYCOL (HEALTHYLAX) 3350 17 GM PACKET PO SCH (11:03)
[2021-03-24] MEDS: predniSONE 5 MG TABLET (UD) PO SCH (11:03)
[2021-03-24] MEDS: ZINC SULFATE 220 MG CAPSULE (FP) PO SCH ×2 (11:03→21:29)
[2021-03-24 11:04] LABS: MAGNESIUM 1.6 mg/dL (1.8-2.4)
[2021-03-24 11:06] LABS: CREATININE 0.7 mg/dL (0.55-1.3); PHOSPHOROUS 3.2 mg/dL (2.5-4.9)
[2021-03-24 11:08] LABS: BILIRUBIN,TOTAL 0.2 mg/dL (0.2-1); TOT PROT 5.9 g/dl (6.4-8.2)
[2021-03-24] MEDS ORDERED: MAGNESIUM OXIDE 400 MG TABLET (FP) PO ONE (15:13)
[2021-03-24] MEDS ORDERED: POTASSIUM CHLORIDE TABS 20 MEQ TABLET.ER (FP) PO ONE ×2 (15:14→20:00)
[2021-03-24] MEDS: clonazePAM 0.5 MG TABLET PO SCH (21:28)
[2021-03-25] MEDS: oxyCODONE HCL 5 MG TABLET PO PRN ×3 (03:45→23:29)
[2021-03-25] MEDS: LEVOTHYROXINE NA 88 MCG TABLET (FP) PO SCH (06:03)
[2021-03-25] MEDS: HEPARIN NA (PORCINE) 5,000 UNITS/ML 1ML VIAL SQ SCH ×3 (06:03→21:17)
[2021-03-25 09:14] LABS: HEMATOCRIT 31.6 % (32.4-45.2); HEMOGLOBIN 10.8 GM/dL (10.7-15.3); MCH 32.1 pg (25.7-33.7); MCHC 34.3 g/dl (32.0-36.0); MEAN CELL VOLUME 93.6 fl (80-96); MEAN PLT VOLUME 7.2 fl (7.5-11.1); PLATELET COUNT 245 10^3/uL (134-434); RBC 3.38 M/mm3 (3.60-5.2); RDW 13.6 % (11.6-15.6); WHITE BLOOD COUNT 5.9 K/mm3 (4.0-10.0)
[2021-03-25 09:50] LABS: CALCIUM 9.1 mg/dL (8.5-10.1)
[2021-03-25 09:51] LABS: BLOOD UREA NITROGEN 17.1 mg/dL (7-18)
[2021-03-25 09:54] LABS: CREATININE 0.7 mg/dL (0.55-1.3); PHOSPHOROUS 3.4 mg/dL (2.5-4.9)
[2021-03-25] MEDS: predniSONE 10 MG TABLET (UD) PO SCH (10:04)
[2021-03-25] MEDS: DULoxetine HCL 30 MG CAPSULE.DR PO SCH (10:04)
[2021-03-25] MEDS: POLYETHYLENE GLYCOL (HEALTHYLAX) 3350 17 GM PACKET PO SCH (10:05)
[2021-03-25] MEDS: SERTRALINE HCL 50 MG TABLET (FP) PO SCH (10:06)
[2021-03-25] MEDS: HYDROXYCHLOROQUINE SO4 200 MG TABLET (FP) PO SCH ×2 (10:06→21:19)
[2021-03-25] MEDS: ZINC SULFATE 220 MG CAPSULE (FP) PO SCH ×2 (10:06→21:18)
[2021-03-25] MEDS: amLODIPine BESYLATE 5 MG TABLET (FP) PO SCH (10:06)
[2021-03-25] MEDS: metoPROLOL SUCCINATE 25 MG TAB.SR.24H (FP) PO SCH ×2 (10:06→21:19)
[2021-03-25] MEDS: TOBRA 0.3%/DEXAMETH 0.1% OPHTHALMIC SUSP 2.5 ML BTL OP SCH ×2 (10:06→21:28)
[2021-03-25] MEDS: ASCORBIC ACID 500 MG TABLET (FP) PO SCH ×2 (10:06→21:20)
[2021-03-25] MEDS ORDERED: PT OWN MED DRAWER 7, Y5N ONE (21:14)
[2021-03-25] MEDS: clonazePAM 0.5 MG TABLET PO SCH (21:18)
[2021-03-25] MEDS: ACETAMINOPHEN 325 MG TABLET (FP) PO PRN (21:23)
[2021-03-26] MEDS: ZINC SULFATE 220 MG CAPSULE (FP) PO SCH ×3 (03:12→21:04)
[2021-03-26] MEDS: oxyCODONE HCL 5 MG TABLET PO PRN ×2 (05:50→12:26)
[2021-03-26] MEDS: LEVOTHYROXINE NA 88 MCG TABLET (FP) PO SCH (06:31)
[2021-03-26] MEDS: HEPARIN NA (PORCINE) 5,000 UNITS/ML 1ML VIAL SQ SCH ×3 (06:34→21:05)
[2021-03-26 10:31] LABS: BASO % 0.5 % (0-2.0); EOS % 3.1 % (0-4.5); HEMATOCRIT 36.1 % (32.4-45.2); HEMOGLOBIN 11.7 GM/dL (10.7-15.3); LYMPH % 16.1 % (8-40); MCH 30.4 pg (25.7-33.7); MCHC 32.4 g/dl (32.0-36.0); MEAN CELL VOLUME 94.1 fl (80-96); MEAN PLT VOLUME 7.9 fl (7.5-11.1); MONO % 9.8 % (3.8-10.2); NEUT % 70.5 % (42.8-82.8); PLATELET COUNT 284 10^3/uL (134-434); RBC 3.83 M/mm3 (3.60-5.2); RDW 13.7 % (11.6-15.6); WHITE BLOOD COUNT 6.9 K/mm3 (4.0-10.0)
[2021-03-26] MEDS: SERTRALINE HCL 50 MG TABLET (FP) PO SCH (10:49)
[2021-03-26] MEDS: predniSONE 10 MG TABLET (UD) PO SCH (10:49)
[2021-03-26] MEDS: metoPROLOL SUCCINATE 25 MG TAB.SR.24H (FP) PO SCH ×2 (10:49→21:04)
[2021-03-26] MEDS: amLODIPine BESYLATE 5 MG TABLET (FP) PO SCH (10:49)
[2021-03-26] MEDS: ASCORBIC ACID 500 MG TABLET (FP) PO SCH ×2 (10:49→21:04)
[2021-03-26] MEDS: POLYETHYLENE GLYCOL (HEALTHYLAX) 3350 17 GM PACKET PO SCH (10:51)
[2021-03-26] MEDS: DULoxetine HCL 30 MG CAPSULE.DR PO SCH (10:51)
[2021-03-26] MEDS: HYDROXYCHLOROQUINE SO4 200 MG TABLET (FP) PO SCH ×2 (10:51→21:04)
[2021-03-26 10:59] LABS: BLOOD UREA NITROGEN 19.8 mg/dL (7-18); CALCIUM 9.7 mg/dL (8.5-10.1); MAGNESIUM 2.1 mg/dL (1.8-2.4)
[2021-03-26 11:00] LABS: ALBUMIN 3.3 g/dl (3.4-5.0)
[2021-03-26 11:02] LABS: CREATININE 0.6 mg/dL (0.55-1.3)
[2021-03-26 11:04] LABS: BILIRUBIN,TOTAL 0.4 mg/dL (0.2-1); TOT PROT 6.5 g/dl (6.4-8.2)
[2021-03-26] MEDS: TOBRA 0.3%/DEXAMETH 0.1% OPHTHALMIC SUSP 2.5 ML BTL OP SCH ×2 (11:05→21:04)
[2021-03-26] MEDS: DEXAMETHASONE SOD PHOSPHATE 4 MG/1 ML VIAL IVPUSH SCH (12:10)
[2021-03-26] MEDS: ACETAMINOPHEN 325 MG TABLET (FP) PO PRN (16:49)
[2021-03-26] MEDS: clonazePAM 0.5 MG TABLET PO SCH (21:03)
[2021-03-26] MEDS: ACETAMINOPHEN 1000 MG/100 ML BAG IVPB PRN (21:18)
[2021-03-27] MEDS: ACETAMINOPHEN 1000 MG/100 ML BAG IVPB PRN (04:30)
[2021-03-27] MEDS: HEPARIN NA (PORCINE) 5,000 UNITS/ML 1ML VIAL SQ SCH ×2 (06:34→16:07)
[2021-03-27] MEDS: LEVOTHYROXINE NA 88 MCG TABLET (FP) PO SCH (06:34)
[2021-03-27] MEDS ORDERED: LIDOCAINE 5% TOPICAL PATCH TP SCH (10:00)
[2021-03-27] MEDS ORDERED: oxyCODONE HCL 5 MG TABLET PO ONE (10:32)
[2021-03-27 10:41] LABS: BASO % 0.3 % (0-2.0); EOS % 1.2 % (0-4.5); HEMATOCRIT 29.7 % (32.4-45.2); HEMOGLOBIN 9.9 GM/dL (10.7-15.3); LYMPH % 14.7 % (8-40); MCHC 33.3 g/dl (32.0-36.0); MEAN PLT VOLUME 7.9 fl (7.5-11.1); MONO % 8.3 % (3.8-10.2); NEUT % 75.5 % (42.8-82.8); PLATELET COUNT 252 10^3/uL (134-434); RDW 13.2 % (11.6-15.6); WHITE BLOOD COUNT 7.1 K/mm3 (4.0-10.0)
[2021-03-27] MEDS: amLODIPine BESYLATE 5 MG TABLET (FP) PO SCH ×2 (10:50→16:05)
[2021-03-27] MEDS: POLYETHYLENE GLYCOL (HEALTHYLAX) 3350 17 GM PACKET PO SCH (10:52)
[2021-03-27] MEDS: DULoxetine HCL 30 MG CAPSULE.DR PO SCH (10:53)
[2021-03-27] MEDS: DEXAMETHASONE SOD PHOSPHATE 4 MG/1 ML VIAL IVPUSH SCH (10:54)
[2021-03-27] MEDS: HYDROXYCHLOROQUINE SO4 200 MG TABLET (FP) PO SCH (10:55)
[2021-03-27] MEDS: SERTRALINE HCL 50 MG TABLET (FP) PO SCH (10:56)
[2021-03-27] MEDS: ZINC SULFATE 220 MG CAPSULE (FP) PO SCH ×3 (10:56→20:21)
[2021-03-27 11:07] LABS: CALCIUM 9.4 mg/dL (8.5-10.1)
[2021-03-27 11:08] LABS: BLOOD UREA NITROGEN 21.3 mg/dL (7-18)
[2021-03-27 11:11] LABS: CREATININE 0.7 mg/dL (0.55-1.3); PHOSPHOROUS 4.3 mg/dL (2.5-4.9)
[2021-03-27] MEDS: metoPROLOL SUCCINATE 25 MG TAB.SR.24H (FP) PO SCH ×2 (11:34→16:05)
[2021-03-27] MEDS ORDERED: oxyCODONE HCL 5 MG TABLET PO PRN (12:00)
[2021-03-27 15:24] VITALS: TEMP 98.6
[2021-03-27 18:38] VITALS: BP 153/80; PULSE 69
[2021-03-27] MEDS: TOBRA 0.3%/DEXAMETH 0.1% OPHTHALMIC SUSP 2.5 ML BTL OP SCH (20:20)
[2021-03-27] MEDS: ASCORBIC ACID 500 MG TABLET (FP) PO SCH (20:20)
[2021-03-27] MEDS ORDERED: LIDOCAINE PATCH REMOVAL MC SCH (22:00)
== END 2021-03-27 22:10 | DRG 179 ==
LOC: JER 13:22 → JERBED 16:46 → J8W 22:01 → J5S 03-24 19:57
PROVIDERS: ADMIT Internal Medicine; ATTEND Internal Medicine
DX: U07.1 COVID-19 (principal); M32.9 Systemic lupus erythematosus, unspecified; E03.9 Hypothyroidism, unspecified; E78.5 Hyperlipidemia, unspecified; E87.6 Hypokalemia; F41.8 Other specified anxiety disorders; K57.90 Diverticulosis of intestine, part unspecified, without perforation or abscess without bleeding; E11.9 Type 2 diabetes mellitus without complications; K64.9 Unspecified hemorrhoids; M81.0 Age-related osteoporosis without current pathological fracture; E07.9 Disorder of thyroid, unspecified
CPT/HCPCS: 36415; 71045-TC-FY; 71250-TC; 72146-TC; 80048; 80053; 81003; 82550; 82962; 83735; 84100; 84484; 85025; 85027; 85379; 85610; 85730; 86140; 87086; 87804; 93005; 93010; 93225; 93226; 94761; 97116-GP; 97161-GP; 99285-25; C9803-CS; J1644; U0003; U0005

== ENCOUNTER 2021-04-02 13:33 | Inpatient (IN) | payer OTHER ==
[2021-04-02] MEDS ORDERED: SODIUM CHLORIDE 0.9% 500 ML INFUS.BAG IV ONE (13:55)
[2021-04-02 14:18] LABS: HEMATOCRIT 29.2 % (32.4-45.2); HEMOGLOBIN 9.2 GM/dL (10.7-15.3); MCHC 31.7 g/dl (32.0-36.0); MEAN CELL VOLUME 94.7 fl (80-96); MEAN PLT VOLUME 8.4 fl (7.5-11.1); PLATELET COUNT 252 10^3/uL (134-434); RBC 3.08 M/mm3 (3.60-5.2); RDW 13.2 % (11.6-15.6); WHITE BLOOD COUNT 15.8 K/mm3 (4.0-10.0)
[2021-04-02] MEDS: NOREPINEPHRINE BITARTRATE 16,000 MCG in SODIUM CHLORIDE 484 ML IV SCH ×2 (14:26→22:12)
[2021-04-02 14:28] LABS: ACTIVATED PTT 37.6 SECONDS (25.2-36.5); VENOUS BASE EXCESS -15.8 mmol/L (-2-2); VENOUS O2 SATURATION 77.1 % (70-80)
[2021-04-02 14:29] LABS: ARTERIAL BLD GAS O2 SATURATION 79.3 % (95-98); ARTERIAL BLOOD GAS BASE EXCESS -16.7 mmol/L (-2-2)
[2021-04-02 14:38] LABS: ARTERIAL BLOOD GAS pH 7.046 (7.350-7.450)
[2021-04-02] MEDS ORDERED: PROPOFOL 20 ML ONE (14:41)
[2021-04-02 14:42] LABS: VENOUS PCO2 71.1 mmHg (38-52); VENOUS PH 6.97 (7.310-7.410)
[2021-04-02 14:43] LABS: INR 1.49 (0.83-1.09); PROTHROMBIN TIME (PATIENT) 17.2 SEC (9.7-13.0)
[2021-04-02] MEDS ORDERED: PROPOFOL 1,000,000 MCG/100 ML VIAL ONE (14:43)
[2021-04-02 14:48] LABS: ANISOCYTOSIS 0; HELMET CELLS 0; HOWELL-JOLLY BODIES 0; MACROCYTOSIS 0; OVALOCYTE 0; PLATELET ESTIMATE NORMAL; ROULEAU 0; SICKELED CELLS 0; TARGET CELLS 0; TEAR DROP CELLS 0; TOXIC GRANULATION 0
[2021-04-02] MEDS ORDERED: SODIUM BICARBONATE 8.4% 50 MEQ/50 ML VIAL IV ONE (14:51)
[2021-04-02 15:01] LABS: CALCIUM 8.8 mg/dL (8.5-10.1)
[2021-04-02 15:06] LABS: BILIRUBIN,TOTAL 0.6 mg/dL (0.2-1); TOT PROT 5.6 g/dl (6.4-8.2)
[2021-04-02 15:07] LABS: LACTIC ACID 10.4 mmol/L (0.4-2.0)
[2021-04-02] MEDS: PROPOFOL 1,000,000 MCG/100 ML VIAL IVPB SCH ×2 (15:10→22:12)
[2021-04-02 15:14] LABS: ALBUMIN 2.2 g/dl (3.4-5.0)
[2021-04-02] MEDS ORDERED: DEXAMETHASONE SOD PHOSPHATE 20 MG/5 ML VIAL IVPB ONE (15:17)
[2021-04-02] MEDS ORDERED: VANCOMYCIN/WATER 1,250 MG/250 ML BAG IVPB ONE (15:31)
[2021-04-02] MEDS ORDERED: PIPERACILLIN/TAZOB 3.375 GM 3.375 GM in DEXTROSE 5%-WATER - 50 ML IVPB ONE (15:32)
[2021-04-02] MEDS ORDERED: DEXAMETHASONE SOD PHOSPHATE 10 MG/1 ML VIAL ONE (15:34)
[2021-04-02] MEDS ORDERED: PIPERACILLIN/TAZOB 3.375 GM 3.375 GM/50 ML BAG IVPB ONE (15:35)
[2021-04-02] MEDS ORDERED: SODIUM BICARBONATE 8.4% 50 MEQ/50 ML VIAL ONE (15:35)
[2021-04-02] MEDS ORDERED: VANCOMYCIN 1 GRAM (PRE-DOCKED) 1,000 MG/250 ML BAG IVPB ONE (15:35)
[2021-04-02] MEDS ORDERED: VANCOMYCIN/WATER BAGS 1,250 MG/250 ML BAG IVPB ONE (15:45)
[2021-04-02] MEDS ORDERED: ROCURONIUM BROMIDE 50 MG/5 ML VIAL IV ONE (15:53)
[2021-04-02] MEDS ORDERED: FLUDROCORTISONE ACETATE 0.1 MG TABLET (FP) PO SCH (16:00)
[2021-04-02] MEDS ORDERED: RAPID SEQUENCE INTUBATION KIT NR ONE (16:02)
[2021-04-02] MEDS ORDERED: HYDROCORTISONE SOD SUCCINATE 100 MG/2 ML VIAL ONE (16:02)
[2021-04-02] MEDS: HYDROCORTISONE SOD SUCCINATE 100 MG/2 ML VIAL IVPB SCH (16:20)
[2021-04-02] MEDS: VASOPRESSIN 40 UNITS/100 ML BAG IV SCH (16:50)
[2021-04-02] MEDS: INSULIN SLIDING SCALE (NOVOLOG) 1 VIAL SQ SCH ×2 (16:51→22:11)
[2021-04-02] MEDS ORDERED: PANTOPRAZOLE SODIUM 40 MG VIAL ONE (17:12)
[2021-04-02] MEDS: PANTOPRAZOLE SODIUM 40 MG VIAL IVPUSH SCH (17:13)
[2021-04-02 17:26] LABS: ARTERIAL BLD GAS O2 SATURATION 60.6 % (95-98); ARTERIAL BLOOD GAS BASE EXCESS -14.4 mmol/L (-2-2); ARTERIAL BLOOD GAS PO2 43.2 mmHg (80-100)
[2021-04-02 17:28] LABS: ARTERIAL BLOOD GAS pH 7.078 (7.350-7.450)
[2021-04-02] MEDS ORDERED: PIPERACILLIN/TAZOB 3.375 GM 3.375 GM in DEXTROSE 5%-WATER - 50 ML IVPB SCH (18:00)
[2021-04-02 19:41] VITALS: BMI 22.9
[2021-04-02 21:46] LABS: HEMOGLOBIN 9.3 GM/dL (10.7-15.3); MCH 29.6 pg (25.7-33.7); MEAN CELL VOLUME 92.7 fl (80-96); MEAN PLT VOLUME 7.2 fl (7.5-11.1); PLATELET COUNT 378 10^3/uL (134-434); RBC 3.13 M/mm3 (3.60-5.2); RDW 13.4 % (11.6-15.6); WHITE BLOOD COUNT 26.2 K/mm3 (4.0-10.0)
[2021-04-02] MEDS: CHLORHEXIDINE GLUCONATE 4% CLEANSER FOR DECOLONIZATION TP SCH (21:59)
[2021-04-02] MEDS: MUPIROCIN 2% TOPICAL OINTMENT FOR DECOLONIZATION NS SCH (21:59)
[2021-04-02] MEDS ORDERED: ENOXAPARIN NA (PORCINE) 40 MG/0.4 ML DISP.SYRIN SQ SCH (22:00)
[2021-04-02 22:21] LABS: LACTIC ACID 3.6 mmol/L (0.4-2.0)
[2021-04-03] MEDS ORDERED: DEXTROSE 5%-WATER - 50 ML IVPB ONE ×4 (00:50→20:52)
[2021-04-03] MEDS ORDERED: PIPERACILLIN/TAZOBACTAM 3.375 GM VIAL IVPB ONE ×2 (00:50→09:49)
[2021-04-03] MEDS: PIPERACILLIN/TAZOB 3.375 GM 3.375 GM in DEXTROSE 5%-WATER - 50 ML IVPB SCH ×2 (01:16→09:56)
[2021-04-03] MEDS: HYDROCORTISONE SOD SUCCINATE 100 MG/2 ML VIAL IVPB SCH (01:16)
[2021-04-03] MEDS: INSULIN SLIDING SCALE (NOVOLOG) 1 VIAL SQ SCH ×4 (06:13→23:10)
[2021-04-03] MEDS ORDERED: LEVOTHYROXINE SODIUM 100 MCG VIAL IVPUSH SCH (07:00)
[2021-04-03 08:37] LABS: HEMATOCRIT 30.4 % (32.4-45.2); HEMOGLOBIN 9.5 GM/dL (10.7-15.3); MCHC 31.4 g/dl (32.0-36.0); MEAN CELL VOLUME 95.6 fl (80-96); MEAN PLT VOLUME 7.9 fl (7.5-11.1); PLATELET COUNT 401 10^3/uL (134-434); RBC 3.17 M/mm3 (3.60-5.2); RDW 14.1 % (11.6-15.6); WHITE BLOOD COUNT 27.6 K/mm3 (4.0-10.0)
[2021-04-03 08:40] LABS: CHLORIDE 104 mmol/L (98-107); SODIUM 139 mmol/L (136-145)
[2021-04-03 08:45] LABS: ALBUMIN 2.1 g/dl (3.4-5.0); BLOOD UREA NITROGEN 46.4 mg/dL (7-18); CALCIUM 8.4 mg/dL (8.5-10.1); CO2 16 mmol/L (21-32); GLUCOSE,RANDOM 188 mg/dL (74-106); MAGNESIUM 2.4 mg/dL (1.8-2.4)
[2021-04-03 08:48] LABS: SGPT/ALT 810 U/L (13-61)
[2021-04-03 08:49] LABS: CREATININE 1.9 mg/dL (0.55-1.3); TOT PROT 5.6 g/dl (6.4-8.2)
[2021-04-03 09:17] LABS: ANISOCYTOSIS 0; HELMET CELLS 0; HOWELL-JOLLY BODIES 0; MACROCYTOSIS 0; OVALOCYTE 0; PLATELET ESTIMATE NORMAL; ROULEAU 0; SICKELED CELLS 0; TARGET CELLS 0; TEAR DROP CELLS 0; TOXIC GRANULATION 0
[2021-04-03 09:39] LABS: ALK PHOS 295 U/L (45-117); ANION GAP 19 MMOL/L (8-16); PHOSPHOROUS 9.4 mg/dL (2.5-4.9); SGOT/AST 2358 U/L (15-37)
[2021-04-03] MEDS ORDERED: DEXTROSE 50%-WATER - 25 GM/50 ML VIAL IVPUSH ONE (09:41)
[2021-04-03] MEDS ORDERED: INSULIN REGULAR HUMAN 100 UNITS/ML *VIAL IVPUSH ONE (09:41)
[2021-04-03] MEDS ORDERED: CALCIUM GLUCONATE 10% - 1,000 MG/10 ML VIAL IVPUSH ONE (09:41)
[2021-04-03] MEDS ORDERED: SODIUM BICARBONATE 8.4% 50 MEQ/50 ML VIAL IVPUSH ONE (09:42)
[2021-04-03] MEDS ORDERED: CALCIUM ACETATE 667 MG CAPSULE (FP) PO ONE (09:43)
[2021-04-03] MEDS ORDERED: DEXTROSE 50%-WATER 25 GM/50 ML DISP.SYRIN ONE (09:48)
[2021-04-03] MEDS ORDERED: SODIUM BICARBONATE 8.4% - 50 ML ONE ×3 (09:48→20:52)
[2021-04-03] MEDS: PANTOPRAZOLE SODIUM 40 MG VIAL IVPUSH SCH (09:56)
[2021-04-03] MEDS ORDERED: VANCOMYCIN 1 GRAM (PRE-DOCKED) 1,000 MG/250 ML BAG IVPB ONE (10:00)
[2021-04-03] MEDS ORDERED: ENOXAPARIN NA (PORCINE) 40 MG/0.4 ML DISP.SYRIN SQ SCH (10:00)
[2021-04-03] MEDS ORDERED: DEXAMETHASONE SOD PHOSPHATE 10 MG/1 ML VIAL IVPUSH SCH (10:00)
[2021-04-03] MEDS ORDERED: PNEUMOC 13-VAL CONJ-DIP CRM/PF 0.5 ML DISP.SYRIN IM ONE (10:00)
[2021-04-03] MEDS ORDERED: VANCOMYCIN 1 GM in D5W (PRE-DOCKED) 1,000 MG/250 ML IVPB SCH (10:00)
[2021-04-03] MEDS ORDERED: ENOXAPARIN NA (PORCINE) 60 MG/0.6 ML DISP.SYRIN SQ SCH (10:00)
[2021-04-03] MEDS: MUPIROCIN 2% TOPICAL OINTMENT FOR DECOLONIZATION NS SCH ×2 (10:10→21:30)
[2021-04-03] MEDS ORDERED: SODIUM CHLORIDE 0.9% 500 ML INFUS.BAG IV ONE (10:14)
[2021-04-03] MEDS ORDERED: SODIUM CHLORIDE 1,000 ML IV SCH (10:15)
[2021-04-03 11:34] LABS: ARTERIAL BLD GAS O2 SATURATION 84.8 % (95-98); ARTERIAL BLOOD GAS BASE EXCESS -18.5 mmol/L (-2-2)
[2021-04-03 11:35] LABS: ALLENS TEST POSITIVE; VENT MODE A/C; VENT RATE 12
[2021-04-03 11:36] LABS: ARTERIAL BLOOD GAS pH 6.921 (7.350-7.450)
[2021-04-03 12:18] LABS: CHLORIDE 111 mmol/L (98-107); SODIUM 146 mmol/L (136-145)
[2021-04-03 12:19] LABS: CALCIUM 7.5 mg/dL (8.5-10.1)
[2021-04-03 12:20] LABS: ANION GAP 18 MMOL/L (8-16); BLOOD UREA NITROGEN 49.3 mg/dL (7-18); CO2 17 mmol/L (21-32); GLUCOSE,RANDOM 227 mg/dL (74-106)
[2021-04-03 12:23] LABS: CREATININE 2.1 mg/dL (0.55-1.3)
[2021-04-03] MEDS ORDERED: HEPARIN NA (PORCINE) 5,000 UNITS/ML 1ML VIAL SQ SCH ×2 (14:00→22:00)
[2021-04-03 14:56] LABS: ARTERIAL BLD GAS O2 SATURATION 88.4 % (95-98); ARTERIAL BLOOD GAS BASE EXCESS -21.4 mmol/L (-2-2); ARTERIAL BLOOD GAS PO2 82.8 mmHg (80-100)
[2021-04-03 15:01] LABS: ARTERIAL BLOOD GAS pH 6.964 (7.350-7.450)
[2021-04-03 15:10] LABS: ALLENS TEST POSITIVE
[2021-04-03 15:11] LABS: VENT MODE A/C; VENT RATE 28
[2021-04-03] MEDS: SODIUM BICARBONATE 8.4% 50 MEQ/50 ML VIAL IVPUSH SCH ×4 (16:36→23:10)
[2021-04-03] MEDS ORDERED: PIPERACILLIN/TAZOBACTAM 2.25 GM VIAL IVPB ONE ×2 (17:28→20:51)
[2021-04-03] MEDS ORDERED: PIPERACILLIN/TAZOB 2.25 GM 2.25 GM in DEXTROSE 5%-WATER - 50 ML IVPB SCH (18:00)
[2021-04-03] MEDS: NOREPINEPHRINE BITARTRATE 16,000 MCG in SODIUM CHLORIDE 484 ML IV SCH (21:29)
[2021-04-03] MEDS: PROPOFOL 1,000,000 MCG/100 ML VIAL IVPB SCH (21:29)
[2021-04-03] MEDS: VASOPRESSIN 40 UNITS/100 ML BAG IV SCH (21:30)
[2021-04-03] MEDS: CHLORHEXIDINE GLUCONATE 4% CLEANSER FOR DECOLONIZATION TP SCH (21:30)
[2021-04-04 00:19] LABS: ARTERIAL BLD GAS O2 SATURATION 99.2 % (95-98); ARTERIAL BLOOD GAS BASE EXCESS -18.8 mmol/L (-2-2); ARTERIAL BLOOD GAS PO2 245.8 mmHg (80-100)
[2021-04-04 00:33] LABS: ALLENS TEST POSITIVE
[2021-04-04 00:34] LABS: ARTERIAL BLOOD GAS pH 7.037 (7.350-7.450); VENT MODE A/C
[2021-04-04 00:35] LABS: VENT RATE 28
[2021-04-04 03:21] VITALS: PULSE 70; TEMP 95.3
[2021-04-04 03:23] VITALS: BP 127/70
[2021-04-04] MEDS ORDERED: PATIENT'S OWN MEDICATION (NON-FORMULARY) (Bupropion Hcl [Wellbutrin Xl] 300 MG Tab.Er.24h) PO SCH (07:00)
[2021-04-04] MEDS ORDERED: DULoxetine HCL 30 MG CAPSULE.DR PO SCH (10:00)
[2021-04-04] MEDS ORDERED: SERTRALINE HCL 50 MG TABLET (FP) PO SCH (10:00)
== END 2021-04-04 01:00 | disposition expired | DRG 871 ==
LOC: JER 13:33 → JERBED 14:53 → JICU 18:59
PROVIDERS: ADMIT Internal Medicine; ATTEND Internal Medicine
PROC: 5A1945Z Respiratory Ventilation, 24-96 Consecutive Hours (ICD-10-PCS; principal; 2021-04-02)
PROC: 0BH17EZ Insertion of Endotracheal Airway into Trachea, Via Natural or Artificial Opening (ICD-10-PCS; 2021-04-02)
DX: A41.9 Sepsis, unspecified organism (principal); J96.01 Acute respiratory failure with hypoxia; U07.1 COVID-19; J12.82 Pneumonia due to coronavirus disease 2019; R65.21 Severe sepsis with septic shock; J96.02 Acute respiratory failure with hypercapnia; K72.00 Acute and subacute hepatic failure without coma; I24.8 Other forms of acute ischemic heart disease; E87.2 Acidosis; G93.1 Anoxic brain damage, not elsewhere classified; I46.9 Cardiac arrest, cause unspecified; I48.91 Unspecified atrial fibrillation; M32.9 Systemic lupus erythematosus, unspecified; E87.5 Hyperkalemia; E78.5 Hyperlipidemia, unspecified; E03.9 Hypothyroidism, unspecified; D72.829 Elevated white blood cell count, unspecified
CPT/HCPCS: 36415; 36600; 71045-TC-FY; 71275-TC; 76937; 80048; 80053; 82550; 82553; 82803; 82962; 83605; 83735; 84100; 84484; 85025; 85027; 85610; 85730; 86140; 86850; 86900; 86901; 87040; 87070; 87205; 87804; 87899; 93005; 93010; 93308; 94002; 99285-25; C9803; G0480; J1100; J1644; J3490; Q9967; U0003; U0005